=== PATIENT | male | born 1980 | race African-American/Black ===

== ENCOUNTER 2018-02-28 15:18 | Emergency (ER) | payer SELFPAY ==
--- OUTSIDE RECORDS SUMMARY | 2018-02-28 15:20 | XMS REPORT ---
:1980 Author Organization [facility] Address [address] [place] [address] Care Team Providers Name Role Phone UNKNOWN, REFFERING Primary Care Provider Unavailable KENTRELL SHEN Unavailable Unavailable Problems This patient has no known problems. Allergies, Adverse Reactions, Alerts This patient has no known allergies or adverse reactions. Medications This patient has no known medications. Encounters Start End Encounter Admission Attending Care Care Encounter Date/Time Date/Time Type Type Clinicians Facility Department ID 2017-06-29 2017-06-29 Emergency [facility] MED [id number] 15:02:00 15:02:00 2017-06-03 2017-06-03 Emergency [facility] MED [id number] 23:59:00 23:59:00 Results Test Description Test Time Test Comments Text Results Atomic Results Result Comments HEPATIC FUNCTION PANEL 2017-06-04 02:17:00 Test Item Value Reference Range Comments TOTAL PROTEIN (BEAKER) (test jvqb=333) 7.0 gm/dL 6.0-8.5 ALBUMIN (BEAKER) (test dkxp=2792) 4.0 g/dL 3.5-5.0 BILIRUBIN TOTAL (BEAKER) (test kkis=436) 0.8 mg/dL 0.1-1.2 BILIRUBIN DIRECT (BEAKER) (test mrrk=857) 0.3 mg/dL 0.0-0.4 ALKALINE PHOSPHATASE (BEAKER) (test xokx=243) 51 U/L 30-115 AST (SGOT) (BEAKER) (test qpds=901) 26 U/L 5-40 ALT (SGPT) (BEAKER) (test lqxq=674) 29 U/L 5-50 [id number] 02:17:00 Test Item Value Reference Range Comments AMYLASE (BEAKER) (test gtnj=096) 102 U/L 30-110 [id number] 02:17:00 Test Item Value Reference Range Comments LIPASE (BEAKER) (test dpnp=049) 62 U/L 40-240 BASIC METABOLIC [id number] 02:17:00 Test Item Value Reference Range Comments SODIUM (BEAKER) (test 140 meq/L 135-148 tojo=186) POTASSIUM (BEAKER) (test 3.6 meq/L 3.6-5.5 xxzb=640) CHLORIDE (BEAKER) (test 104 meq/L 98-106 rmth=058) CO2 (BEAKER) (test 28 meq/L 24-32 qixp=913) BLOOD UREA NITROGEN 6 mg/dL 10-26 (BEAKER) (test zeyj=068) CREATININE (BEAKER) (test 0.76 mg/dL 0.50-1.20 rkpj=443) GLUCOSE RANDOM (BEAKER) 107 mg/dL 70-110 (test mtzq=770) CALCIUM (BEAKER) (test 8.9 mg/dL 8.5-10.5 xnsp=570) EGFR (BEAKER) (test 141 mL/min/1.73 sq m ESTIMATED GFR IS NOT gnsi=9380) ACCURATE CREATININE CLEARANCE IN PREDICTING GLOMERULAR FILTRATION RATE. ESTIMATED GFR IS NOT APPLICABLE FOR DIALYSIS PATIENTS. CBC W/PLT COUNT & AUTO [id number] 02:10:00 Test Item Value Reference Range Comments WHITE BLOOD CELL COUNT (BEAKER) (test iabx=048) 5.7 10e3/ L 4.0-10.0 RED BLOOD CELL COUNT (BEAKER) (test cavm=364) 3.86 10e6/ L 4.20-5.80 HEMOGLOBIN (BEAKER) (test hpde=833) 13.3 g/dL 13.0-16.8 HEMATOCRIT (BEAKER) (test zhce=156) 40.2 % 40.0-50.0 MEAN CORPUSCULAR VOLUME (BEAKER) (test 104.3 fL 82.0-98.0 tahm=034) MEAN CORPUSCULAR HEMOGLOBIN (BEAKER) (test 34.5 pg 27.0-33.0 equu=087) MEAN CORPUSCULAR HEMOGLOBIN CONC (BEAKER) (test 33.0 g/dL 32.0-36.0 kmyi=275) RED CELL DISTRIBUTION WIDTH (BEAKER) (test 10.6 % 10.3-14.2 npdd=691) PLATELET COUNT (BEAKER) (test xnfx=659) 82 10e3/ L 150-430 MEAN PLATELET VOLUME (BEAKER) (test rgwn=937) 8.2 fL 6.5-10.5 NEUTROPHILS RELATIVE PERCENT (BEAKER) (test 60 % kixw=110) LYMPHOCYTES RELATIVE PERCENT (BEAKER) (test 32 % mvxv=005) MONOCYTES RELATIVE PERCENT (BEAKER) (test 6 % idjb=607) EOSINOPHILS RELATIVE PERCENT (BEAKER) (test 3 % qzdu=074) BASOPHILS RELATIVE PERCENT (BEAKER) (test 0 % uxhj=372) NEUTROPHILS ABSOLUTE COUNT (BEAKER) (test 3.39 10e3/ L 1.80-8.00 wtsa=472) LYMPHOCYTES ABSOLUTE COUNT (BEAKER) (test 1.78 10e3/ L 1.48-4.50 pkpt=855) MONOCYTES ABSOLUTE COUNT (BEAKER) (test 0.32 10e3/ L 0.00-1.30 zndl=843) EOSINOPHILS ABSOLUTE COUNT (BEAKER) (test 0.14 10e3/ L 0.00-0.50 bvpi=775) BASOPHILS ABSOLUTE COUNT (BEAKER) (test 0.02 10e3/ L 0.00-0.20 bwbu=077) CT ABDOMEN/PELVIS [id number] 22:28:[address] [id number] IMAGING REPORTPatient Name : Lee Ann PRATT of Service: [id number]: 37 Sex: M Order #: [id number] Room: [facility]: 1980 X-Ray Number: [id number] Record Number: [id number] Hospital Number: [id number] Physician: PEDRO ALIOrdering Physician: RACHID HYMAN ABDOMEN AND PELVIS WITH CONTRAST:CLINICAL HISTORY: Abdominal pain with nausea vomiting diarrhea for 4 days;history of partial colonresection for Crohn's disease; no prior studieshereTECHNIQUE: Examination is performed following intravenous administration of100 mL of Isovue-300. 4 mm axial sections were obtained with coronal andsagittal reconstructions.This CT exam was performed using one or more of the following dosereduction techniques: Automated exposure control, adjustment of the MA andor KV according to patient size or use of iterative reconstructiontechnique.FINDINGS: Lung bases are clear. There is mild scarring noted at the rightbase.The enhanced liver, spleen , pancreas, adrenals, kidneys, ureters andbladder are all normal for age.There has been apparent right hemicolectomy postoperative changes noted.There is moderatedistention of the stool filled transverse colon mostmarked proximally. There is no evidence of bowelobstruction or significantbowel wall thickening based on this study.There is a small ventral hernia demonstrated which contains fat. The defectis approximately 2 cm transversely.Impression:1. Status post right hemicolectomy with moderate distention of the stoolfilled proximal transverse colon. There is no gross obstruction at thepresent time, no inflammation or ascites.2. There is a small fat-containing ventral hernia.Electronically Signed By: Silver Cerna M.D., 05/31/2017 10:26 PMLegally authenticated by JEWESL Castillo 2017-05-31 22:26:08CHEST XR 2 [id number] 21:47:[address] [id number] IMAGING REPORTPatient Name: Lee Ann PRATT of Service: [id number]: 37 Sex: M Order #: [id number] [facility] 1979 [facility] Number: [id number] Record Number: [id number] Hospital Number: [id number] Physician: MARCIE VASQUEZOrdering Physician: URIEL HYMAN 2 VIEWS:CLINICAL HISTORY: Right rib pain; recent fall playing basketballTECHNIQUE: PA and lateralFINDINGS: The heart and pulmonary vasculature are normal, and the lungs areclear.The mediastinal structures and bony thorax are normal.IMPRESSION:Normal chest.Electronically Signed By: Silver Cerna M.D., 05/31/2017 9:44 PMLegallani authenticated by JEWELS Castillo 2017-05-31 21:44:55
--- OUTSIDE RECORDS SUMMARY | 2018-02-28 15:20 | XMS REPORT | Clinical Summary ---
:1980 Author Organization [facility] Address [address] [place] [address] Care Team Providers Name Role Phone Asked, No Pcp Primary Care Provider Unavailable Allergies Active Allergy Reactions Severity Noted Date Comments Ketorolac Rash Low 06/19/2017 Current Medications Prescription Sig. Disp. Refills Start Date End Date Status acetaminophen-codeine Take 1-2 tablets 15 tablet 0 06/19/2017 06/29/2017 (TYLENOL WITH CODEINE by mouth every 6 #3) 300-30 mg per (six) hours as tablet needed for moderate pain for up to 10 days. ondansetron (ZOFRAN) Take 1 tablet (4 15 tablet 0 06/19/2017 07/03/2017 4 MG tablet mg total) by mouth every 6 (six) hours for 14 days. Active Problems Not on file Encounters Date Type Specialty Care Team Description 09/03/2017 Emergency Emergency Medicine Tavon, Chronic abdominal pain DO Yahaira (Primary Dx) 06/23/2017 Emergency Emergency Medicine Jannie Saldana-Elise Gastroenteritis ( Primary MD Elise Dx) 06/19/2017 Emergency Emergency Medicine Sagar Emanuel Abdominal pain, unspecified MD Timothy location (Primary Dx) after 02/27/2017 Social History Tobacco Use Types Packs/Day Years Used Date Current Some Day Smoker Cigarettes 1 Smokeless Tobacco: Never Used Tobacco Cessation: Ready to Quit: No; Counseling Given: No Alcohol Use Drinks/Week oz/Week Comments Yes occationally Sex Assigned at Date Recorded Not on file Last Filed Vital Signs Vital Sign Reading Time Taken Blood Pressure 109/77 09/03/2017 3:00 AM WATER GAS OPERATOR Pulse 89 09/03/2017 2:54 AM WATER GAS OPERATOR Temperature 36.7 C (98 F) 09/03/2017 1:08 AM WATER GAS OPERATOR Respiratory Rate 18 09/03/2017 2:54 AM WATER GAS OPERATOR Oxygen Saturation 99% 09/03/2017 2:54 AM WATER GAS OPERATOR Inhaled Oxygen Concentration - - Weight - - Height 180.3 cm (5' 11") 09/03/2017 1:08 AM WATER GAS OPERATOR Body Mass Index - - Plan of Treatment Health Maintenance Due Date Last Done Comments INFLUENZA VACCINE 05/15/[address] Abdomen Pelvis W Contrast (09/03/2017 3:30 AM)Only the most recent of2 resultswithin the time period is included. Specimen Performing Laboratory [facility] [address] [place] [address] Narrative EXAMINATION:CT ABDOMEN PELVIS W CONTRAST CLINICAL HISTORY:abdominal pain TECHNIQUE: Multiple axial images of the abdomen and pelvis were obtained following intravenous administration of iodinated contrast. Sagittal and coronal computerized reformatted images were also obtained. CT imaging was performed with iterative reconstruction technique and/or automated exposure control to reduce radiation dose. COMPARISON:06/19/2017 IMPRESSION: Liver, gallbladder, spleen, pancreas, adrenal glands are normal. Kidneys, ureters and bladder are normal. No free intraperitoneal fluid or air. Fat-containing ventral hernias are seen in the midline. Patient is status post right colectomy. No gastrointestinal tract obstruction. No acute osseous abnormalities. CONCLUSION: No emergent findings. [facility]-[id number] Procedure Note Interface, Radiology Results Incoming - 09/03/2017 3:42 AM WATER GAS OPERATOR EXAMINATION: CT ABDOMEN PELVIS W CONTRAST CLINICAL HISTORY: abdominal pain TECHNIQUE: Multiple axial images of the abdomen and pelvis were obtained following intravenous administration of iodinated contrast. Sagittal and coronal computerized reformatted images were also obtained. CT imaging was performed with iterative reconstruction technique and/or automated exposure control to reduce radiation dose. COMPARISON: 06/19/2017 IMPRESSION: Liver, gallbladder, spleen, pancreas, adrenal glands are normal. Kidneys, ureters and bladder are normal. No free intraperitoneal fluid or air. Fat-containing ventral hernias are seen in the midline. Patient is status post right colectomy. No gastrointestinal tract obstruction. No acute osseous abnormalities. CONCLUSION: No emergent findings. [facility]-[id number] Urinalysis screen and microscopy, with reflex to culture (09/03/2017 2:48 AM) Only the most recent of3 resultswithin the time period is included. Component Value Ref Range Specimen site Clean catch Color, UA Straw Appearance, UA Clear Specific gravity, UA 1.017 1.001 - 1.035 pH, UA 5.0 5.0 - 8.5 Protein, UA Negative Negative Glucose, UA Negative Negative Ketones, UA Negative Negative Bilirubin, UA Negative Negative Blood, UA Small (A) Negative Nitrite, UA Negative Negative Urobilinogen, UA <2.0 <2.0 Leukocyte esterase, UA Negative Negative WBC, UA 1 0 - 1 /HPF RBC, UA 1 0 - 1 /HPF Bacteria, UA None seen None seen Yeast, UA None seen Yeast with pseudohyphae, UA None seen Specimen Performing Laboratory Urine [facility] DEPARTMENT OF PATHOLOGY AND GENOMIC MEDICINE [address] [place] [address] Urine culture (09/03/2017 2:48 AM)Only the most recent of3 resultswithin the time period is included. Component Value Ref Range Urine culture SEE COMMENTComment: Bacteriuria screen negative. Specimen Performing Laboratory [facility] DEPARTMENT OF PATHOLOGY AND [address] [address] Urine drugs of abuse screen (09/03/2017 2:47 AM) Component Value Ref Range Amphetamine screen, urine Negative Barbiturate screen, urine Negative Benzodiazepine screen, urine Negative Cannabinoid screen, urine Positive (A) Cocaine screen, urine Negative Methadone metabolite (EDDP), urine Negative Opiates screen, urine Positive (A) Oxycodone screen, urine Negative Phencyclidine screen, urine Negative Tricyclic screen, urine Negative Comment: Drug screen minimum concentration of detectability Waerowswlils7783 ng/mL Barbiturates 200 ng/mL Gfwecsxquhgvjki990 ng/mL Fintghd966 ng/mL Wbvmemosq159 ng/mL Qenyljr158 ng/mL Gvutnbanj489 ng/mL Phencyclidine 25 ng/mL Xxpqoomwsfio86 ng/mL Mfuurdkfzq5939 ng/mL Negative test results indicates presumptive evidence of lack of clinically significant drug concentration in this urine specimen. Positive test results are presumptive evidence of clinically significant drug concentration in this urine specimen. Testing performed for medical purposes only. Specimen Performing Laboratory Urine [facility] DEPARTMENT OF PATHOLOGY AND [facility] MEDICINE [address] [place] [address] Estimated GFR (09/03/2017 2:39 AM)Only the most recent of3 resultswithin the time period is included. Component Value Ref Range GFR Non Af Amer >90 mL/min/1.73 m2 GFR Af Amer >90 mL/min/1.73 m2 Comment: Chronic kidney disease: <60 mL/min/1.73m2 Kidney failure: <15 mL/min/1.73m2 The estimated GFR is calculated from the IDMS-traceable Modification of Diet in Renal Disease Equation. The accuracy of the calculation is poor when the creatinine is normal. Calculated values >90 mL/min/1.73m2 are not reported. This equation has not been validated in children (<18 years), women, the elderly (>70 years), or ethnic groups other than Caucasians and Americans. Specimen Performing Laboratory Plasma specimen [facility] DEPARTMENT OF PATHOLOGY AND GENOMIC MEDICINE [address] [place] [address] CBC with platelet and differential (09/03/2017 2:39 AM)Only the most recent of3 resultswithin the time period is included. Component Value Ref Range WBC 8.53 4.50 - 11.00 k/uL RBC 4.25 (L) 4.40 - 6.00 m/uL HGB 14.6 14.0 - 18.0 g/dL HCT 43.3 41.0 - 51.0 % MCV 101.9 (H) 82.0 - 100.0 fL MCH 34.4 (H) 27.0 - 34.0 pg MCHC 33.7 31.0 - 37.0 g/dL RDW - SD 46.2 37.0 - 55.0 fL MPV 8.7 (L) 8.8 - 13.2 fL Platelet count 192 150 - 400 k/uL Nucleated RBC 0.00 /100 WBC Neutrophils 93.7 (H) 39.0 - 69.0 % Lymphocytes 5.0 (L) 25.0 - 45.0 % Monocytes 0.6 0.0 - 10.0 % Eosinophils 0.1 0.0 - 5.0 % Basophils 0.1 0.0 - 1.0 % Immature granulocytes 0.5Comment: "Immature granulocytes" 0.0 - 1.0 % (promyelocytes, myelocytes, metamyelocytes) Specimen Performing Laboratory Blood [facility] DEPARTMENT OF PATHOLOGY AND [facility] MEDICINE [address] [place] [address] Lipase level (09/03/2017 2:39 AM)Only the most recent of3 resultswithin the time period is included. Component Value Ref Range Lipase 31 13 - 60 U/L Specimen Performing Laboratory Plasma specimen [facility] DEPARTMENT OF PATHOLOGY AND GENOMIC MEDICINE [address] [place] [address] Alcohol level, blood (09/03/2017 2:39 AM) Component Value Ref Range Alcohol None Detected mg/dL Comment: Normal None Detected Legal Intoxication in [place]80 mg/dL (0.08%) - Whole Blood Toxic Wgvjbuzuezukk706 mg/dL (0.2%) Potentially Agtwp978 - 500 mg/dL (0.35 - 0.5%) Alcohol percent None Detected % Specimen Performing Laboratory Plasma specimen [facility] DEPARTMENT OF PATHOLOGY AND [facility] MEDICINE [address] [place] [address] Comprehensive metabolic panel (09/03/2017 2:39 AM)Only the most recent of3 resultswithin the time period is included. Component Value Ref Range Sodium 137 135 - 148 mEq/L Potassium 4.2 3.5 - 5.0 mEq/L Chloride 102 98 - 112 mEq/L CO2 20 (L) 24 - 31 mEq/L Anion gap 15 7 - 15 mEq/L Comment: Starting from January , anion gap calculation no longer incorporates potassium. Please note the change. BUN 7 6 - 20 mg/dL Creatinine 0.9 0.7 - 1.2 mg/dL Glucose 121 (H) 65 - 99 mg/dL Calcium 9.1 8.3 - 10.2 mg/dL Protein 7.6 6.3 - 8.3 g/dL Comment: [place] 4.6-7.0 g/dL 1 week 4.4-7.6 g/dL 7 months-1year5.1-7.3 g/dL 1-2 years5.6-7.5 g/dL >3 years6.0-8.0 g/dL 18-150 6.3-8.3 g/dL Albumin 4.1 3.5 - 5.0 g/dL A/G ratio 1.2 0.7 - 3.8 Alkaline phosphatase 72 40 - 129 U/L AST 22 10 - 50 U/L ALT 20 5 - 50 U/L Total bilirubin 0.6 0.0 - 1.2 mg/dL Specimen Performing Laboratory Plasma specimen [facility] DEPARTMENT OF PATHOLOGY AND GENOMIC MEDICINE [address] [place] [address] Lactic acid level (06/19/2017 12:48 PM) Component Value Ref Range Lactic acid 1.5 0.5 - 2.2 mmol/L Specimen Performing Laboratory Plasma specimen [facility] DEPARTMENT OF PATHOLOGY AND GENOMIC MEDICINE [address] [place] [address] Amylase level (06/19/2017 12:48 PM) Component Value Ref Range Amylase 43 13 - 53 U/L Specimen Performing Laboratory Plasma specimen [facility] DEPARTMENT OF PATHOLOGY AND GENOMIC MEDICINE [address] [place] [address] after 02/27/2017 Insurance Payer Benefit Plan / Group Subscriber ID Type Phone Address [facility] xxxxxxxxxxxxx O [phone] [place] [phone]
--- OUTSIDE RECORDS SUMMARY | 2018-02-28 15:20 | XMS REPORT | Clinical Summary ---
:1980 Author Organization [facility] Address [address] [place] [address] Phone Care Team Providers Name Role Phone Unavailable Primary Care Provider Unavailable Allergies Active Allergy Reactions Severity Noted Date Comments Ketorolac Rash Low 06/04/2017 Current Medications Prescription Sig. Disp. Refills Start Date End Date Status dicyclomine (BENTYL) Take 1 tablet 20 tablet 0 06/04/2017 06/04/2018 Active 20 mg tablet (20 mg total) by mouth 2 (two) times daily. ibuprofen Take 1 tablet 25 tablet 0 06/04/2017 06/04/2017 Discontinued (ADVIL,MOTRIN) 600 (600 mg MG tablet total) by mouth every 6 (six) hours as needed for up to 10 days. methocarbamol Take 1 tablet 20 tablet 0 06/04/2017 06/04/2017 Discontinued (ROBAXIN) 500 MG (500 mg tablet total) by mouth 2 (two) times daily for 10 days. dicyclomine (BENTYL) Take 1 tablet 20 tablet 0 06/04/2017 06/04/2017 Discontinued 20 mg tablet (20 mg total) by mouth 2 (two) times daily. ciprofloxacin HCl Take 1 tablet 14 tablet 0 06/04/2017 06/04/2017 Discontinued (CIPRO) 500 MG (500 mg tablet total) by mouth 2 (two) times daily for 7 days. ibuprofen Take 1 tablet 25 tablet 0 06/04/2017 06/04/2017 Discontinued (ADVIL,MOTRIN) 600 (600 mg MG tablet total) by mouth every 6 (six) hours as needed for up to 10 days. methocarbamol Take 1 tablet 20 tablet 0 06/04/2017 06/04/2017 Discontinued (ROBAXIN) 500 MG (500 mg tablet total) by mouth 2 (two) times daily for 10 days. ciprofloxacin HCl Take 1 tablet 14 tablet 0 06/04/2017 06/04/2017 Discontinued (CIPRO) 500 MG (500 mg tablet total) by mouth 2 (two) times daily for 7 days. dicyclomine (BENTYL) Take 1 tablet 20 tablet 0 06/04/2017 06/04/2017 Discontinued 20 mg tablet (20 mg total) by mouth 2 (two) times daily. ibuprofen Take 1 tablet 25 tablet 0 06/04/2017 06/14/2017 (ADVIL,MOTRIN) 600 (600 mg MG tablet total) by mouth every 6 (six) hours as needed for up to 10 days. methocarbamol Take 1 tablet 20 tablet 0 06/04/2017 06/14/2017 (ROBAXIN) 500 MG (500 mg tablet total) by mouth 2 (two) times daily for 10 days. ciprofloxacin HCl Take 1 tablet 14 tablet 0 06/04/2017 06/11/2017 (CIPRO) 500 MG (500 mg tablet total) by mouth 2 (two) times daily for 7 days. Active Problems Not on file Encounters Date Type Specialty Care Team Description 06/04/2017 Emergency Emergency Medicine Sherry Chaidez MD Chest wall contusion, right, initial encounter (Primary Dx);Gastroenteritis after 02/27/2017 Social History Tobacco Use Types Packs/Day Years Used Date Current Every Day Smoker Cigarettes Smokeless Tobacco: Current User Alcohol Use Drinks/Week oz/Week Comments Yes Sex Assigned at Date Recorded Not on file Last Filed Vital Signs Vital Sign Reading Time Taken Blood Pressure 151/82 06/04/2017 2:42 AM CDT Pulse 89 06/04/2017 2:42 AM CDT Temperature 36.6 C (97.8 F) 06/04/2017 1:35 AM CDT Respiratory Rate 18 06/04/2017 2:42 AM CDT Oxygen Saturation 97% 06/04/2017 2:42 AM CDT Inhaled Oxygen Concentration - - Weight 93 kg (205 lb) 06/04/2017 1:40 AM CDT Height 175.3 cm (5' 9") 06/04/2017 1:40 AM CDT Body Mass Index 30.27 06/04/2017 1:40 AM CDT Plan of Treatment Not on file Results CBC with platelet count + automated diff (06/04/2017 2:01 AM) Component Value Ref Range WBC 5.7 4.0 - 10.0 10e3/L RBC 3.86 (L) 4.20 - 5.80 10e6/L Hemoglobin 13.3 13.0 - 16.8 g/dL Hematocrit 40.2 40.0 - 50.0 % MCV 104.3 (H) 82.0 - 98.0 fL MCH 34.5 (H) 27.0 - 33.0 pg MCHC 33.0 32.0 - 36.0 g/dL RDW 10.6 10.3 - 14.2 % Platelets 82 (L) 150 - 430 10e3/L MPV 8.2 6.5 - 10.5 fL % Neutros 60 % % Lymphs 32 % % Monos 6 % % Eos 3 % % Baso 0 % # Neutros 3.39 1.80 - 8.00 10e3/L # Lymphs 1.78 1.48 - 4.50 10e3/L # Monos 0.32 0.00 - 1.30 10e3/L # Eos 0.14 0.00 - 0.50 10e3/L # Baso 0.02 0.00 - 0.20 10e3/L Specimen Performing Laboratory Blood - Arm, [facility] [place], [facility] [address] [place] [address] CBC with platelet count + automated diff (06/04/2017 2:01 AM) Specimen Performing Laboratory Blood Narrative The following orders were created for panel order CBC with platelet count + automated diff. Procedure Abnormality Status --------- ------ CBC with platelet count ...[[id number]]AbnormalFinal result Please view results for these tests on the individual orders. Lipase (06/04/2017 2:01 AM) Component Value Ref Range Lipase 62 40 - 240 U/L Specimen Performing Laboratory Blood - Arm, [facility], [facility], [facility] [address] [place] [address] Amylase (06/04/2017 2:01 AM) Component Value Ref Range Amylase 102 30 - 110 U/L Specimen Performing Laboratory Blood - Arm, [facility], [facility] [place], [facility] [address] [place] [address] Liver Panel (06/04/2017 2:01 AM) Component Value Ref Range Protein, Total 7.0 6.0 - 8.5 gm/dL Albumin 4.0 3.5 - 5.0 g/dL Total Bilirubin 0.8 0.1 - 1.2 mg/dL Bilirubin, Direct 0.3 0.0 - 0.4 mg/dL Alkaline Phosphatase 51 30 - 115 U/L AST 26 5 - 40 U/L ALT 29 5 - 50 U/L Specimen Performing Laboratory Blood - Arm, [facility], [facility] [place], [facility] [address] [place] [address] Basic metabolic panel (Na, K+, Cl, CO2, Glu, Ca, BUN, Cr) (06/04/2017 2:01 AM) Component Value Ref Range Sodium 140 135 - 148 meq/L Potassium 3.6 3.6 - 5.5 meq/L Chloride 104 98 - 106 meq/L CO2 28 24 - 32 meq/L BUN 6 (L) 10 - 26 mg/dL Creatinine 0.76 0.50 - 1.20 mg/dL Glucose 107 70 - 110 mg/dL Calcium 8.9 8.5 - 10.5 mg/dL EGFR 141Comment: ESTIMATED GFR IS NOT ACCURATE mL/min/1.73 sq m CREATININE CLEARANCE IN PREDICTING GLOMERULAR FILTRATION RATE. ESTIMATED GFR IS NOT APPLICABLE FOR DIALYSIS PATIENTS. Specimen Performing Laboratory Blood - Arm, [facility], [facility] [place] [address] [place] [address] XR chest 2 views (06/04/2017 1:50 AM) Specimen Performing Laboratory GE RIS Narrative FINAL REPORT EXAM: 2 VIEW CHEST CLINICAL INDICATION: CHEST PAIN IMPRESSION: No evidence of focal lung consolidation, pulmonary edema or pleural effusion. The heart size is normal. Mediastinal contours are sharp. No evidence of an acute osseous abnormality or pneumothorax. Signed: Amilcar Murillo MD Report Verified Date/Time:06/04/2017 01:58:57 Reading Location: [address] Reading Room Procedure Note Interface, External Ris In - 06/04/2017 2:01 AM CDT FINAL REPORT EXAM: 2 VIEW CHEST CLINICAL INDICATION: CHEST PAIN IMPRESSION: No evidence of focal lung consolidation, pulmonary edema or pleural effusion. The heart size is normal. Mediastinal contours are sharp. No evidence of an acute osseous abnormality or pneumothorax. Signed: Amilcar Murillo MD Report Verified Date/Time: 06/04/2017 01:58:57 Reading Location: [address] Reading Room after 02/27/2017
[2018-02-28 16:14] LABS: Absolute Lymphocytes (CBC) 1.1 K/uL (0.7-4.9); Absolute Monocytes 0.5 K/uL (0.1-1.3); Basophils % 0.5 % (0-1.3); Eosinophils % 1.3 % (0-4.4); Hematocrit 43.8 % (39.6-49.0); Lymphocytes % 16.7 % (15.3-44.8); MCH 33.5 pg (27.0-35.0); MCV 101.7 fL (80-100); Monocytes % 6.8 % (3.3-12.3); RBC Red Blood Cell Count 4.31 M/uL (4.33-5.43)
[2018-02-28] MEDS ORDERED: MEPERIDINE HCL 50 MG/ML AMP ONE ×2 (16:15→16:57)
[2018-02-28] MEDS ORDERED: ONDANSETRON 4 MG/2 ML VIAL ONE (16:16)
[2018-02-28] MEDS ORDERED: NA CHLORIDE 0.9% 1,000 ML ONE (16:16)
[2018-02-28 16:27] LABS: Bicarbonate 25 mEq/L (21-31); Glucose Level 114 mg/dL (65-120); Lipase 55 U/L (22-51); Potassium 3.2 mEq/L (3.6-5.0); Sodium Level 134 mEq/L (135-145)
[2018-02-28 16:33] LABS: ALT/SGPT 23 IU/L (10-60); AST/SGOT 20 IU/L (10-42); Albumin 4.3 g/dL (3.2-5.5); Alkaline Phosphatase 61 IU/L (42-121); BUN Blood Urea Nitrogen 8 mg/dL (6-20); Bilirubin Direct 0.1 mg/dL (0-0.2); Bilirubin Total 0.8 mg/dL (0.3-1.2); Protein, Total 7.5 g/dL (6.0-8.3)
[2018-02-28] MEDS ORDERED: METHYLPREDNISOLONE 125 MG INJ ONE (16:57)
[2018-02-28 18:11] LABS: Urine Glucose NEGATIVE (NEG)
[2018-02-28 18:12] LABS: Urine Blood NEGATIVE (NEG); Urine Protein NEGATIVE (NEG); Urine pH 5.5 (5.0-7.0)
--- NOTE | 2018-02-28 18:23 | ER ---
Nurse's Notes [facility] Name: Johan Moreno Age: 38 yrs Sex: Male : 1980 Arrival Date: 02/28/2018 Time: 15:20 Bed 16 Private MD: Diagnosis: Crohn's disease [regional enteritis] Presentation: 02/28 15:32 Presenting complaint: Patient states: Generalized abdominal pain and N/V/D for 2 days. aj Transition of care: patient was not received from another setting of care. Onset of symptoms was February 26, 2018. Care prior to arrival: None. 15:32 Method Of Arrival: Ambulatory 15:32 Acuity: KJ 3 aj 15:48 Initial Sepsis Screen: Does the patient meet any 2 criteria? No. Patient's initial hj sepsis screen is negative. Does the patient have a suspected source of infection? No. Patient's initial sepsis screen is negative. Triage Assessment: 15:33 General: Appears in no apparent distress. uncomfortable, Behavior is calm, cooperative, aj appropriate for age. Pain: Complains of pain in abdomen Pain currently is 7 out of 10 on a pain scale. Neuro: Level of Consciousness is awake, alert, obeys commands, Oriented to person, place, time, situation, Appropriate for age. Respiratory: Airway is patent Respiratory effort is even, unlabored, Respiratory pattern is regular, symmetrical. GI: Reports lower abdominal pain, upper abdominal pain, diarrhea, nausea, vomiting. Derm: Skin is intact, is healthy with good turgor, Skin is normal, black. Historical: - Allergies: 15:33 Toradol; aj - Home Meds: 15:33 None [Active]; aj - PMHx: 15:33 Crohn's; aj - PSHx: 15:33 Carpal Tunnel Repair; Bowel resection; aj - Immunization history:: Adult Immunizations up to date. - Social history:: Smoking status: Patient uses tobacco products, smokes one-half pack cigarettes per day. - Family history:: not pertinent. - Hospitalizations: : No recent hospitalization is reported. Screenin:47 Abuse screen: Denies threats or abuse. Denies injuries from another. Nutritional hj screening: No deficits noted. Tuberculosis screening: No symptoms or risk factors identified. Fall Risk None identified. Assessment: 15:48 GI: Bowel sounds present X 4 quads. Abd is soft Abdomen is tender to palpation. hj 15:48 General: Appears in no apparent distress. uncomfortable, Behavior is calm, cooperative, hj appropriate for age. Pain: Complains of pain in abdomen. Neuro: Level of Consciousness is awake, alert, obeys commands, Oriented to person, place, time, situation, Appropriate for age. Cardiovascular: Capillary refill < 3 seconds Patient's skin is warm and dry. Respiratory: Airway is patent Respiratory effort is even, unlabored, Respiratory pattern is regular, symmetrical. : No signs and/or symptoms were reported regarding the genitourinary system. EENT: No signs and/or symptoms were reported regarding the EENT system. Derm: No signs and/or symptoms reported regarding the dermatologic system. Musculoskeletal: No signs and/or symptoms reported regarding the musculoskeletal system. Vital Signs: 15:33 BP 137 / 79; Pulse 100; Resp 20; Temp 97.8; Pulse Ox 97% on R/A; Weight 99.79 kg; aj Height 5 ft. 9 in. (175.26 cm); Pain 7/10; 16:30 BP 142 / 80; Pulse 94; Resp 18; Pulse Ox 100% on R/A; hj 17:33 BP 139 / 87; Pulse 95; Resp 18; Pulse Ox 100% on R/A; hj 18:37 BP 138 / 85; Pulse 94; Resp 18; Pulse Ox 98% on R/A; hj 15:33 Body Mass Index 32.49 (99.79 kg, 175.26 cm) aj ED Course: 15:20 Patient arrived in ED. mr 15:33 Triage completed. aj 15:33 Arm band placed on left wrist. Patient placed in waiting room, Patient notified of wait aj time. 15:47 Thom Barba, RN is Primary Nurse. hj 15:48 Patient has correct armband on for positive identification. Placed in gown. Bed in low hj position. Call light in reach. Side rails up X 1. 15:54 Rm Silveira MD is Attending Physician. rn 16:05 Initial lab(s) drawn, by me, sent to lab. Inserted saline lock: 20 gauge in left hj antecubital area, using aseptic technique. Blood collected. 18:36 No provider procedures requiring assistance completed. IV discontinued, intact, hj bleeding controlled, No redness/swelling at site. Pressure dressing applied. Administered Medications: 15:58 Drug: NS 0.9% 1000 ml Route: IV; Rate: 1000 ml; Site: left antecubital; hj 16:20 Follow up: IV Status: Completed infusion hj 15:58 Drug: Zofran 4 mg Route: IVP; Site: left antecubital; hj 16:20 Follow up: Response: No adverse reaction hj 15:58 Drug: Demerol 50 mg Route: IVP; Site: left antecubital; hj 16:19 Follow up: Response: No adverse reaction; Pain is decreased hj 16:52 Drug: SOLU-Medrol 125 mg Route: IVP; Site: left antecubital; hj 17:18 Follow up: Response: No adverse reaction hj 16:52 Drug: Demerol 50 mg Route: IVP; Site: left antecubital; hj 17:17 Follow up: Response: No adverse reaction; Pain is decreased hj Outcome: 18:22 Discharge ordered by . rn 18:36 Discharged to home ambulatory. hj 18:36 Condition: stable 18:36 Discharge instructions given to patient, Instructed on discharge instructions, follow up and referral plans. medication usage, Demonstrated understanding of instructions, follow-up care, medications, Prescriptions given X 3. 18:43 Patient left the ED. Signatures: Afshan Sawant RN RN aj Rivera, Maria mr Nieto, Roman, MD MD rn Joaquin, Henry, RN RN
--- NOTE | 2018-02-28 18:23 | EDPHYS ---
Physician Documentation [facility] Name: Johan Moreno Age: 38 yrs Sex: Male : 1980 Arrival Date: 02/28/2018 Time: 15:20 Bed 16 Private MD: ED Physician Rm Silveira HPI: 02/28 15:59 This 38 yrs old Black Male presents to ER via Ambulatory with complaints of Abdominal rn Pain, Nausea/Vomiting/Diarrhea. 15:59 The patient presents to the emergency department with nausea, vomiting, diarrhea, rn abdominal pain. Onset: The symptoms/episode began/occurred 2 day(s) ago. Possible causes: flare up of bowel problem, Crohn's disease. Severity of symptoms: At their worst the symptoms were moderate in the emergency department the symptoms are unchanged. The patient has experienced similar episodes in the past. The patient has not recently seen a physician. Historical: - Allergies: 15:33 Toradol; aj - Home Meds: 15:33 None [Active]; aj - PMHx: 15:33 Crohn's; aj - PSHx: 15:33 Carpal Tunnel Repair; Bowel resection; aj - Immunization history:: Adult Immunizations up to date. - Social history:: Smoking status: Patient uses tobacco products, smokes one-half pack cigarettes per day. - Family history:: not pertinent. - Hospitalizations: : No recent hospitalization is reported. ROS: 15:59 Constitutional: Negative for fever, chills, and weight loss, Eyes: Negative for injury, rn pain, redness, and discharge, Cardiovascular: Negative for chest pain, palpitations, and edema, Respiratory: Negative for shortness of breath, cough, wheezing, and pleuritic chest pain, Abdomen/GI: Negative for constipation, MS/Extremity: Negative for injury and deformity, Skin: Negative for injury, rash, and discoloration, Neuro: Negative for headache, weakness, numbness, tingling, and seizure. Exam: 15:59 Constitutional: This is a well developed, well nourished patient who is awake, alert, rn appears uncomfortable Head/Face: Normocephalic, atraumatic. Eyes: Pupils equal round and reactive to light, extra-ocular motions intact. Lids and lashes normal. Conjunctiva and sclera are non-icteric and not injected. Cornea within normal limits. Periorbital areas with no swelling, redness, or edema. ENT: dry MM Cardiovascular: tachycardic, regular, no murmur Respiratory: Lungs have equal breath sounds bilaterally, clear to auscultation and percussion. No rales, rhonchi or wheezes noted. No increased work of breathing, no retractions or nasal flaring. Abdomen/GI: soft, RLQ and LLQ tenderness, no rebound, no masses MS/ Extremity: Pulses equal, no cyanosis. Neurovascular intact. Full, normal range of motion. Equal circumference. Neuro: Awake and alert, GCS 15, oriented to person, place, time, and situation. Cranial nerves II-XII grossly intact. Motor strength 5/5 in all extremities. Sensory grossly intact. Vital Signs: 15:33 BP 137 / 79; Pulse 100; Resp 20; Temp 97.8; Pulse Ox 97% on R/A; Weight 99.79 kg; aj Height 5 ft. 9 in. (175.26 cm); Pain 7/10; 16:30 BP 142 / 80; Pulse 94; Resp 18; Pulse Ox 100% on R/A; hj 17:33 BP 139 / 87; Pulse 95; Resp 18; Pulse Ox 100% on R/A; hj 18:37 BP 138 / 85; Pulse 94; Resp 18; Pulse Ox 98% on R/A; hj 15:33 Body Mass Index 32.49 (99.79 kg, 175.26 cm) aj MDM: 15:54 Patient medically screened. rn 18:20 Differential diagnosis: Nonspecific abd pain, viral gastroenteritis, gastroenteritis, rn crohn's flare. Data reviewed: vital signs, nurses notes, lab test result(s), and as a result, I will discharge patient. Counseling: I had a detailed discussion with the patient and/or guardian regarding: the historical points, exam findings, and any diagnostic results supporting the discharge/admit diagnosis, lab results, the need for outpatient follow up, to return to the emergency department if symptoms worsen or persist or if there are any questions or concerns that arise at home. Response to treatment: the patient's symptoms have markedly improved after treatment, and as a result, I will discharge patient. Special discussion: Based on the patient's Hx, exam, and Dx evaluation, there is no indication for emergent surgery or inpatient Tx. It is understood by the patient/guardian that if the Sx's persist or worsen they need to return immediately for re-evaluation. I discussed with the patient/guardian in detail that at this point there is no indication for admission to the hospital. It is understood, however, that if the symptoms persist or worsen the patient needs to return immediately for re-evaluation. Based on the history and exam findings, there is no indication for further emergent testing or inpatient evaluation. I discussed with the patient/guardian the need to see the sales service manager for further evaluation of the symptoms. ED course: Labs ok, normal WBC, improved, no longer nauseous, feels like crohn's flare for patient, normal vitals, will dc home with steroids, pain meds, and nausea meds. Return precautions given and understood.. 02/28 15:58 Order name: Basic Metabolic Panel rn 02/28 15:58 Order name: CBC with Diff; Complete Time: 16:36 rn 02/28 15:58 Order name: Hepatic Function; Complete Time: 16:36 rn 02/28 15:58 Order name: Lipase; Complete Time: 16:36 rn 02/28 15:58 Order name: Basic Metabolic Panel; Complete Time: 16:36 EDCA 02/28 17:00 Order name: Urine Dipstick--Ancillary (enter results) bd 02/28 15:58 Order name: IV Saline Lock; Complete Time: 16:04 rn 02/28 15:58 Order name: Labs collected and sent; Complete Time: 16:04 rn Administered Medications: 15:58 Drug: NS 0.9% 1000 ml Route: IV; Rate: 1000 ml; Site: left antecubital; hj 16:20 Follow up: IV Status: Completed infusion hj 15:58 Drug: Zofran 4 mg Route: IVP; Site: left antecubital; hj 16:20 Follow up: Response: No adverse reaction hj 15:58 Drug: Demerol 50 mg Route: IVP; Site: left antecubital; hj 16:19 Follow up: Response: No adverse reaction; Pain is decreased hj 16:52 Drug: SOLU-Medrol 125 mg Route: IVP; Site: left antecubital; hj 17:18 Follow up: Response: No adverse reaction hj 16:52 Drug: Demerol 50 mg Route: IVP; Site: left antecubital; hj 17:17 Follow up: Response: No adverse reaction; Pain is decreased hj Disposition: 02/28/18 18:22 Discharged to Home. Impression: Crohn's disease [regional enteritis]. - Condition is Stable. - Discharge Instructions: Crohn Disease. - Prescriptions for Zofran ODT 4 mg Oral tablet,disintegrating - place 1 tablet by TRANSLINGUAL route every 8-10 hours As needed; 20 tablet. Tylenol- Codeine #3 300-30 mg Oral Tablet - take 1 tablet by ORAL route every 6 hours As needed; 20 tablet. Medrol (Bal) 4 mg Oral Tablets, Dose Pack - take 1 tablet by ORAL route as directed - follow package instructions; 1 packet. - Medication Reconciliation Form, Thank You Letter, Antibiotic Education, Prescription Opioid Use form. - Follow up: Private Physician; When: As needed; Reason: Recheck today's complaints, Re-evaluation by your physician. - Problem is new. - Symptoms have improved. Signatures: Dispatcher [employer] Afshan De La Torre RN RN aj Nieto, Roman, MD MD rn Joaquin, Henry, RN RN hj Corrections: (The following items were deleted from the chart) 18:43 18:22 02/28/2018 18:22 Discharged to Home. Impression: Crohn's disease [regional hj enteritis]. Condition is Stable. Forms are Medication Reconciliation Form, Thank You Letter, Antibiotic Education, Prescription Opioid Use. Follow up: Private Physician; When: As needed; Reason: Recheck today's complaints, Re-evaluation by your physician. Problem is new. Symptoms have improved. rn
== END 2018-02-28 18:43 | disposition home or self-care (01) ==
LOC: ER 15:18
DX: K50.90 Crohn's disease, unspecified, without complications (principal); F17.210 Nicotine dependence, cigarettes, uncomplicated; Z88.6 Allergy status to analgesic agent
CPT/HCPCS: 36415; 80048; 80076; 81003; 83690; 85025; 96374; 96375; 99284; J2175; J2405; J2930; J7030

== ENCOUNTER 2018-03-27 05:08 | Emergency (ER) | payer SELFPAY ==
--- OUTSIDE RECORDS SUMMARY | 2018-03-27 05:10 | XMS REPORT | Clinical Summary ---
:1980 Author Organization [facility] Address [address] [place] [address] Care Team Providers Name Role Phone Asked, [...] unspecified MD Timothy location (Primary Dx) after 03/26/2017 Social History Tobacco Use Types Packs/Day Years Used Date Current Some Day Smoker Cigarettes 1 Smokeless Tobacco: Never Used Tobacco Cessation: Ready to Quit: No; Counseling Given: No Alcohol Use Drinks/Week oz/Week Comments Yes occationally Sex Assigned at Date Recorded Not on file Last Filed Vital Signs Vital Sign Reading Time Taken Blood Pressure 109/77 09/03/2017 3:00 AM DIRECTOR TECHNICAL Pulse 89 09/03/2017 2:54 AM DIRECTOR TECHNICAL Temperature 36.7 C (98 F) 09/03/2017 1:08 AM DIRECTOR TECHNICAL Respiratory Rate 18 09/03/2017 2:54 AM DIRECTOR TECHNICAL Oxygen Saturation 99% 09/03/2017 2:54 AM DIRECTOR TECHNICAL Inhaled Oxygen Concentration - - Weight - - Height 180.3 cm (5' 11") 09/03/2017 1:08 AM DIRECTOR TECHNICAL Body Mass Index - - Plan of Treatment Health Maintenance Due Date Last Done Comments INFLUENZA VACCINE 05/15/[address] Abdomen Pelvis W Contrast (09/03/2017 3:30 AM)Only the most recent of2 resultswithin the time period is included. Specimen Performing Laboratory [facility] [address] [place] [address] Narrative EXAMINATION:CT ABDOMEN PELVIS W CONTRAST CLINICAL [...] acute osseous abnormalities. CONCLUSION: No emergent findings. [facility]-[id number] Procedure Note Interface, Radiology Results Incoming - 09/03/2017 3:42 AM DIRECTOR TECHNICAL EXAMINATION: CT ABDOMEN PELVIS W CONTRAST CLINICAL [...] acute osseous abnormalities. CONCLUSION: No emergent findings. [facility]-[id number] Urinalysis screen and microscopy, with reflex to [...] UA None seen Specimen Performing Laboratory Urine [facility] DEPARTMENT OF PATHOLOGY AND GENOMIC MEDICINE [address] [place] [address] Urine culture (09/03/2017 2:48 AM)Only the most recent of3 resultswithin the time period is included. Component Value Ref Range Urine culture SEE COMMENTComment: Bacteriuria screen negative. Specimen Performing Laboratory [facility] DEPARTMENT OF PATHOLOGY AND [address] [address] Urine drugs of abuse screen (09/03/2017 2:47 AM) Component Value Ref Range Amphetamine screen, urine Negative Barbiturate screen, urine Negative Benzodiazepine screen, urine Negative Cannabinoid screen, urine Positive (A) Cocaine screen, urine Negative Methadone metabolite (EDDP), urine Negative Opiates screen, urine Positive (A) Oxycodone screen, urine Negative Phencyclidine screen, urine Negative Tricyclic screen, urine Negative Comment: Drug screen minimum concentration of detectability Ykbqxnxruznf4951 ng/mL Barbiturates 200 ng/mL Ngkxsuurbvjveet333 ng/mL Rlzpuiw554 ng/mL Staubaonv470 ng/mL Gvjsxtr818 ng/mL Urgrtlzcj145 ng/mL Phencyclidine 25 ng/mL Tzmktudjhsgz88 ng/mL Rqsfatqehb8182 ng/mL Negative test results indicates presumptive evidence of lack of clinically significant drug concentration in this urine specimen. Positive test results are presumptive evidence of clinically significant drug concentration in this urine specimen. Testing performed for medical purposes only. Specimen Performing Laboratory Urine [facility] DEPARTMENT OF PATHOLOGY AND [facility] MEDICINE [address] [place] [address] Estimated GFR (09/03/2017 2:39 AM)Only the most [...] and Americans. Specimen Performing Laboratory Plasma specimen [facility] DEPARTMENT OF PATHOLOGY AND GENOMIC MEDICINE [address] [place] [address] CBC with platelet and differential (09/03/2017 2:39 [...] (promyelocytes, myelocytes, metamyelocytes) Specimen Performing Laboratory Blood [facility] DEPARTMENT OF PATHOLOGY AND [facility]IC[facility] [address] [place] [address] Lipase level (09/03/2017 2:39 AM)Only the most recent of3 resultswithin the time period is included. Component Value Ref Range Lipase 31 13 - 60 U/L Specimen Performing Laboratory Plasma specimen [facility] DEPARTMENT OF PATHOLOGY AND GENOMIC MEDICINE [address] [place] [address] Alcohol level, blood (09/03/2017 2:39 AM) Component Value Ref Range Alcohol None Detected mg/dL Comment: Normal None Detected Legal Intoxication in [place]80 mg/dL (0.08%) - Whole Blood Toxic Vodhsoqtmsgoj922 mg/dL (0.2%) Potentially Xpfuf489 - 500 mg/dL (0.35 - 0.5%) Alcohol percent None Detected % Specimen Performing Laboratory Plasma specimen [facility] DEPARTMENT OF PATHOLOGY AND [facility] [address] [place] [address] Comprehensive metabolic panel (09/03/2017 2:39 AM)Only the [...] Protein 7.6 6.3 - 8.3 g/dL Comment: [place] 4.6-7.0 g/dL 1 week 4.4-7.6 g/dL 7 months-1year5.1-7.3 g/dL 1-2 years5.6-7.5 g/dL >3 years6.0-8.0 g/dL 18-150 6.3-8.3 g/dL Albumin 4.1 3.5 - 5.0 g/dL A/G ratio 1.2 0.7 - 3.8 Alkaline phosphatase 72 40 - 129 U/L AST 22 10 - 50 U/L ALT 20 5 - 50 U/L Total bilirubin 0.6 0.0 - 1.2 mg/dL Specimen Performing Laboratory Plasma specimen [facility] DEPARTMENT OF PATHOLOGY AND GENOMIC MEDICINE [address] [place] [address] Lactic acid level (06/19/2017 12:48 PM) Component Value Ref Range Lactic acid 1.5 0.5 - 2.2 mmol/L Specimen Performing Laboratory Plasma specimen [facility] DEPARTMENT OF PATHOLOGY AND GENOMIC MEDICINE [address] [place] [address] Amylase level (06/19/2017 12:48 PM) Component Value Ref Range Amylase 43 13 - 53 U/L Specimen Performing Laboratory Plasma specimen [facility] DEPARTMENT OF PATHOLOGY AND GENOMIC MEDICINE [address] [place] [address] after 03/26/2017 Insurance Payer Benefit Plan / Group Subscriber ID Type Phone Address [facility] xxxxxxxxxxxxx O Home: [address] [phone] [place] [phone]
--- OUTSIDE RECORDS SUMMARY | 2018-03-27 05:10 | XMS REPORT ---
:1980 Author Organization [facility] Address [address] [place] [address] Care Team Providers Name Role Phone UNKNOWN, [...] Facility Department ID 2017-06-29 2017-06-29 Emergency [facility] [id number] 15:02:00 15:02:00 2017-06-03 2017-06-03 Emergency [facility] [id number] 23:59:00 23:59:00 Results Test Description Test Time Test Comments Text Results Atomic Results Result Comments HEPATIC FUNCTION PANEL 2017-06-04 02:17:00 Test Item Value Reference Range Comments TOTAL PROTEIN (BEAKER) (test olno=329) 7.0 gm/dL 6.0-8.5 ALBUMIN (BEAKER) (test ptsg=4177) 4.0 g/dL 3.5-5.0 BILIRUBIN TOTAL (BEAKER) (test duim=709) 0.8 mg/dL 0.1-1.2 BILIRUBIN DIRECT (BEAKER) (test rmku=079) 0.3 mg/dL 0.0-0.4 ALKALINE PHOSPHATASE (BEAKER) (test psvh=249) 51 U/L 30-115 AST (SGOT) (BEAKER) (test ofzs=486) 26 U/L 5-40 ALT (SGPT) (BEAKER) (test cmmf=762) 29 U/L 5-50 [id number] 02:17:00 Test Item Value Reference Range Comments AMYLASE (BEAKER) (test xtbl=948) 102 U/L 30-110 [id number] 02:17:00 Test Item Value Reference Range Comments LIPASE (BEAKER) (test xjwb=496) 62 U/L 40-240 BASIC METABOLIC [id number] 02:17:00 Test Item Value Reference Range Comments SODIUM (BEAKER) (test 140 meq/L 135-148 bvnz=449) POTASSIUM (BEAKER) (test 3.6 meq/L 3.6-5.5 mqjq=053) CHLORIDE (BEAKER) (test 104 meq/L 98-106 heuy=670) CO2 (BEAKER) (test 28 meq/L 24-32 prie=244) BLOOD UREA NITROGEN 6 mg/dL 10-26 (BEAKER) (test mzoa=527) CREATININE (BEAKER) (test 0.76 mg/dL 0.50-1.20 sggz=197) GLUCOSE RANDOM (BEAKER) 107 mg/dL 70-110 (test qvfu=070) CALCIUM (BEAKER) (test 8.9 mg/dL 8.5-10.5 ppfm=517) EGFR (BEAKER) (test 141 mL/min/1.73 sq m ESTIMATED GFR IS NOT cyzo=8090) ACCURATE CREATININE CLEARANCE IN PREDICTING GLOMERULAR FILTRATION RATE. ESTIMATED GFR IS NOT APPLICABLE FOR DIALYSIS PATIENTS. CBC W/PLT COUNT & AUTO [id number] 02:10:00 Test Item Value Reference Range Comments WHITE BLOOD CELL COUNT (BEAKER) (test fodm=564) 5.7 10e3/ L 4.0-10.0 RED BLOOD CELL COUNT (BEAKER) (test qqta=787) 3.86 10e6/ L 4.20-5.80 HEMOGLOBIN (BEAKER) (test vkbu=370) 13.3 g/dL 13.0-16.8 HEMATOCRIT (BEAKER) (test fana=639) 40.2 % 40.0-50.0 MEAN CORPUSCULAR VOLUME (BEAKER) (test 104.3 fL 82.0-98.0 dton=683) MEAN CORPUSCULAR HEMOGLOBIN (BEAKER) (test 34.5 pg 27.0-33.0 hzbx=803) MEAN CORPUSCULAR HEMOGLOBIN CONC (BEAKER) (test 33.0 g/dL 32.0-36.0 wovf=913) RED CELL DISTRIBUTION WIDTH (BEAKER) (test 10.6 % 10.3-14.2 weya=789) PLATELET COUNT (BEAKER) (test fuib=368) 82 10e3/ L 150-430 MEAN PLATELET VOLUME (BEAKER) (test lose=401) 8.2 fL 6.5-10.5 NEUTROPHILS RELATIVE PERCENT (BEAKER) (test 60 % jvho=575) LYMPHOCYTES RELATIVE PERCENT (BEAKER) (test 32 % goya=902) MONOCYTES RELATIVE PERCENT (BEAKER) (test 6 % mhgc=741) EOSINOPHILS RELATIVE PERCENT (BEAKER) (test 3 % tbin=109) BASOPHILS RELATIVE PERCENT (BEAKER) (test 0 % youj=074) NEUTROPHILS ABSOLUTE COUNT (BEAKER) (test 3.39 10e3/ L 1.80-8.00 timh=379) LYMPHOCYTES ABSOLUTE COUNT (BEAKER) (test 1.78 10e3/ L 1.48-4.50 gxsl=049) MONOCYTES ABSOLUTE COUNT (BEAKER) (test 0.32 10e3/ L 0.00-1.30 mtxp=850) EOSINOPHILS ABSOLUTE COUNT (BEAKER) (test 0.14 10e3/ L 0.00-0.50 ovgf=525) BASOPHILS ABSOLUTE COUNT (BEAKER) (test 0.02 10e3/ L 0.00-0.20 pnyr=948) CT ABDOMEN/PELVIS [id number] 22:28:[address] [id number] IMAGING REPORTPatient Name : Lee Ann PRATT of Service: [id number]: 37 Sex: M Order #: [id number] Room: [facility]: 1980 X-Ray Number: [id number] Record Number: [id number] Hospital Number: [id number] Physician: PEDRO ALIOrdering Physician: RACHID HYMAN ABDOMEN [...] Cerna M.D., 05/31/2017 10:26 PMLegally authenticated by JEWELS Castillo 2017-05-31 22:26:08CHEST XR 2 [id number] 21:47:[address] [id number] IMAGING REPORTPatient Name: Lee Ann PRATT of Service: [id number]: 37 Sex: M Order #: [id number] [facility] 1979 [facility] Number: [id number] Record Number: [id number] Hospital Number: [id number] Physician: MARCIE VASQUEZOrdering Physician: URIEL HYMAN 2 VIEWS:CLINICAL HISTORY: Right rib pain; recent fall playing basketballTECHNIQUE: PA and lateralFINDINGS: The heart and pulmonary vasculature are normal, and the lungs areclear.The mediastinal structures and bony thorax are normal.IMPRESSION:Normal chest.Electronically Signed By: Silver Cerna M.D., 05/31/2017 9:44 PMLegallani authenticated by JEWELS Castillo 2017-05-31 21:44:55
--- OUTSIDE RECORDS SUMMARY | 2018-03-27 05:10 | XMS REPORT | Clinical Summary ---
:1980 Author Organization [facility] Address [address] [place] [address] Phone Care Team Providers Name Role Phone [...] contusion, right, initial encounter (Primary Dx);Gastroenteritis after 03/26/2017 Social History Tobacco Use Types [...] 10e3/L Specimen Performing Laboratory Blood - Arm, [facility]GENCY [place], [facility] [address] [place] [id number] CBC with platelet count + automated diff (06/04/2017 2:01 AM) Specimen Performing Laboratory Blood Narrative The following orders were created for panel order CBC with platelet count + automated diff. Procedure Abnormality Status --------- ------ CBC with platelet count ...[[id number]]AbnormalFinal result Please view results for these tests on the individual orders. Lipase (06/04/2017 2:01 AM) Component Value Ref Range Lipase 62 40 - 240 U/L Specimen Performing Laboratory Blood - Arm, [facility], [facility] [address] [place] [id number] Amylase (06/04/2017 2:01 AM) Component Value Ref Range Amylase 102 30 - 110 U/L Specimen Performing Laboratory Blood - Arm, [facility], [facility]ENCY [place], [facility] [address] [place] [id number] Liver Panel (06/04/2017 2:01 AM) Component Value Ref Range Protein, Total 7.0 6.0 - 8.5 gm/dL Albumin 4.0 3.5 - 5.0 g/dL Total Bilirubin 0.8 0.1 - 1.2 mg/dL Bilirubin, Direct 0.3 0.0 - 0.4 mg/dL Alkaline Phosphatase 51 30 - 115 U/L AST 26 5 - 40 U/L ALT 29 5 - 50 U/L Specimen Performing Laboratory Blood - Arm, [facility], [facility] [place] [address] [place] [id number] Basic metabolic panel (Na, K+, Cl, CO2, [...] PATIENTS. Specimen Performing Laboratory Blood - Arm, [facility], [facility] [place] [address] [place] [phone] XR chest 2 views (06/04/2017 1:50 AM) Specimen Performing Laboratory GE RIS Narrative FINAL REPORT EXAM: 2 VIEW CHEST CLINICAL INDICATION: CHEST PAIN IMPRESSION: No evidence of focal lung consolidation, pulmonary edema or pleural effusion. The heart size is normal. Mediastinal contours are sharp. No evidence of an acute osseous abnormality or pneumothorax. Signed: Amilcar Murillo MD Report Verified Date/Time:06/04/2017 01:58:57 Reading Location: [address] Reading Room Procedure Note Interface, External [...] Report Verified Date/Time: 06/04/2017 01:58:57 Reading Location: [address] Reading Room after 03/26/2017
[2018-03-27 05:40] LABS: Urine Blood NEGATIVE (NEG); Urine Glucose NEGATIVE (NEG); Urine Protein NEGATIVE (NEG); Urine Specific Gravity 1.025 (1.005-1.030)
[2018-03-27 05:45] LABS: Absolute Lymphocytes (CBC) 1.7 K/uL (0.7-4.9); Absolute Monocytes 0.6 K/uL (0.1-1.3); Absolute Neutrophil 4.3 K/uL (1.8-8.0); Basophils % 0.6 % (0-1.3); Eosinophils % 2.2 % (0-4.4); Hematocrit 41.3 % (39.6-49.0); Lymphocytes % 25.5 % (15.3-44.8); MCH 34.4 pg (27.0-35.0); MCV 103.1 fL (80-100); MPV 6.5 fL (7.6-11.3); Monocytes % 8.4 % (3.3-12.3)
[2018-03-27 05:51] LABS: Bicarbonate 24 mEq/L (21-31); Glucose Level 108 mg/dL (65-120); Lipase 45 U/L (22-51); Potassium 3.9 mEq/L (3.6-5.0); Sodium Level 139 mEq/L (135-145)
[2018-03-27 05:57] LABS: ALT/SGPT 24 IU/L (10-60); AST/SGOT 23 IU/L (10-42); Albumin 4.1 g/dL (3.2-5.5); Alkaline Phosphatase 66 IU/L (42-121); Amylase Level 120 U/L (28-100); BUN Blood Urea Nitrogen 9 mg/dL (6-20); Bilirubin Direct 0.1 mg/dL (0-0.2); Bilirubin Total 0.6 mg/dL (0.3-1.2); Protein, Total 7.2 g/dL (6.0-8.3)
[2018-03-27 05:58] LABS: Urine Bacteria <20 /HPF (NONE SEEN); Urine Culture Reflex Order NOT NEEDED; Urine Mucus MOD /HPF (NONE SEEN); Urine RBC NONE SEEN /HPF (NONE SEEN)
[2018-03-27] MEDS ORDERED: ACETAMINOPHEN 325 MG TABLET ONE (06:23)
[2018-03-27] MEDS ORDERED: NA CHLORIDE 0.9% 1,000 ML ONE (07:23)
[2018-03-27] MEDS ORDERED: ONDANSETRON 4 MG/2 ML VIAL ONE ×2 (07:23→08:14)
[2018-03-27] MEDS ORDERED: MORPHINE 4 MG/ML SYR ONE ×2 (07:23→08:14)
--- NOTE | 2018-03-27 09:06 | RAD REPORT ---
EXAM DESCRIPTION: CTAbdomen Pelvis W Contrast - 03/27/2018 8:53 am CLINICAL HISTORY: Abdominal pain. Nausea and vomiting x1 day COMPARISON: 11/14/2017, 09/26/2017, 03/20/2017 TECHNIQUE: Biphasic CT imaging of the abdomen and pelvis was performed with 100 ml non-ionic IV cont rast. All CT scans are performed using dose optimization technique as appropriate and may include automated exposure control or mA/KV adjustment according to patient size. FINDINGS: Mild linear subsegmental atelectasis in both lung bases. The liver, spleen, pancreas, adrenal glands and kidneys are within normal limits. Postsurgical changes are present of a partial colectomy. A moderate fat containing ventral hernia is seen. No bowel obstruction, free fluid or abscess. The appendix appears surgically absent. No eviden ce of significant lymphadenopathy. No suspicious bony findings. IMPRESSION: No acute intra-abdominal or pelvic finding. Postsurgical changes of a partial colectomy noted.
--- NOTE | 2018-03-27 09:11 | EDPHYS ---
Physician Documentation [facility] Name: Johan Moreno Age: 38 yrs Sex: Male : 1980 Arrival Date: 03/27/2018 Time: 05:10 Bed 19 Private MD: ED Physician George Coates HPI: 03/27 06:21 This 38 yrs old Black Male presents to ER via Ambulatory with complaints of Abdominal kav Pain. 06:36 The patient presents with abdominal pain right lower quadrant, in the left lower kav quadrant. Onset: The symptoms/episode began/occurred acutely. The symptoms do not radiate. Associated signs and symptoms: Pertinent positives: nausea, vomiting, and diarrhea, headache, Pertinent negatives: blood in stools, chest pain, fever, hematuria, shortness of breath, testicular pain, vomiting blood. The symptoms are described as achy. Modifying factors: The symptoms are alleviated by nothing, the symptoms are aggravated by nothing. Severity of pain: At its worst the pain was mild just prior to arrival, in the emergency department the pain is unchanged. The patient has not experienced similar symptoms in the past. The patient has not recently seen a physician. Historical: - Allergies: 05:21 Toradol; ao - Home Meds: 05:21 None [Active]; ao - PMHx: 05:21 Crohn's; ao - PSHx: 05:21 Bowel resection; ao - Immunization history:: Adult Immunizations up to date. - Social history:: Smoking status: Patient uses tobacco products, smokes one-half pack cigarettes per day, Patient uses alcohol, occasionally. Patient/guardian denies using street drugs, IV drugs. - Ebola Screening: : Patient negative for fever greater than or equal to 101.5 degrees Fahrenheit, and additional compatible Ebola Virus Disease symptoms Patient denies exposure to infectious person Patient denies travel to an Ebola-affected area in the 21 days before illness onset. - Family history:: not pertinent. - Hospitalizations: : No recent hospitalization is reported. ROS: 06:36 Constitutional: Negative for fever, chills, and weight loss, Eyes: Negative for injury, kav pain, redness, and discharge, ENT: Negative for injury, pain, and discharge, Neck: Negative for injury, pain, and swelling, Cardiovascular: Negative for chest pain, palpitations, and edema, Respiratory: Negative for shortness of breath, cough, wheezing, and pleuritic chest pain, Back: Negative for injury and pain, : Negative for injury, bleeding, discharge, and swelling, MS/Extremity: Negative for injury and deformity, Skin: Negative for injury, rash, and discoloration, Neuro: Negative for headache, weakness, numbness, tingling, and seizure, Psych: Negative for depression, anxiety, suicide ideation, homicidal ideation, and hallucinations, Allergy/Immunology: Negative for hives, rash, and allergies, Endocrine: Negative for neck swelling, polydipsia, polyuria, polyphagia, and marked weight changes, Hematologic/Lymphatic: Negative for swollen nodes, abnormal bleeding, and unusual bruising. 06:36 Abdomen/GI: Positive for abdominal pain, nausea, vomiting, and diarrhea, of the right lower quadrant and left lower quadrant. Exam: 06:36 Constitutional: This is a well developed, well nourished patient who is awake, alert, kav and in no acute distress. Head/Face: Normocephalic, atraumatic. Eyes: Pupils equal round and reactive to light, extra-ocular motions intact. Lids and lashes normal. Conjunctiva and sclera are non-icteric and not injected. Cornea within normal limits. Periorbital areas with no swelling, redness, or edema. ENT: Nares patent. No nasal discharge, no septal abnormalities noted. Tympanic membranes are normal and external auditory canals are clear. Oropharynx with no redness, swelling, or masses, exudates, or evidence of obstruction, uvula midline. Mucous membranes moist. Neck: Trachea midline, no thyromegaly or masses palpated, and no cervical lymphadenopathy. Supple, full range of motion without nuchal rigidity, or vertebral point tenderness. No Meningismus. Chest/axilla: Normal chest wall appearance and motion. Nontender with no deformity. No lesions are appreciated. Cardiovascular: Regular rate and rhythm with a normal S1 and S2. No gallops, murmurs, or rubs. Normal PMI, no JVD. No pulse deficits. Respiratory: Lungs have equal breath sounds bilaterally, clear to auscultation and percussion. No rales, rhonchi or wheezes noted. No increased work of breathing, no retractions or nasal flaring. Back: No spinal tenderness. No costovertebral tenderness. Full range of motion. Skin: Warm, dry with normal turgor. Normal color with no rashes, no lesions, and no evidence of cellulitis. MS/ Extremity: Pulses equal, no cyanosis. Neurovascular intact. Full, normal range of motion. Neuro: Awake and alert, GCS 15, oriented to person, place, time, and situation. Cranial nerves II-XII grossly intact. Motor strength 5/5 in all extremities. Sensory grossly intact. Cerebellar exam normal. Normal gait. Psych: Awake, alert, with orientation to person, place and time. Behavior, mood, and affect are within normal limits. 06:36 Abdomen/GI: Inspection: abdomen appears normal, Bowel sounds: normal, Palpation: mild abdominal tenderness, in the right lower quadrant and left lower quadrant. Vital Signs: 05:19 BP 129 / 81; Pulse 85; Resp 18; Temp 98.4(TE); Pulse Ox 98% on R/A; Weight 104.33 kg ao (R); Height 5 ft. 9 in. (175.26 cm) (R); Pain 5/10; 07:15 BP 144 / 97; Pulse 70; Resp 18 S; Temp 98.3(TE); Pulse Ox 98% on R/A; Pain 8/10; aa5 08:25 BP 146 / 102; Pulse 73; Resp 18; Pulse Ox 97% on R/A; mh5 09:21 BP 139 / 88; Pulse 70; Resp 18; Pulse Ox 96% on R/A; mh5 05:19 Body Mass Index 33.96 (104.33 kg, 175.26 cm) ao MDM: 05:13 Patient medically screened. pkl 06:36 Data reviewed: vital signs, nurses notes. kav 08:14 ED course: patient c/o pain. Morphine 4 mg iv x 1 dose ordered. kav 09:09 Data reviewed: lab test result(s), radiologic studies. [facility] 03/27 05:25 Order name: Amylase, Serum; Complete Time: 06:08 ao 03/27 06:08 Interpretation: Abnormal: MANNY 120. [facility] 03/27 05:25 Order name: Basic Metabolic Panel; Complete Time: 06:09 ao 03/27 09:08 Interpretation: Within normal limits. [facility] 03/27 05:25 Order name: CBC with Diff; Complete Time: 06:08 ao 03/27 06:09 Interpretation: Normal except: RBC 4.00; MCV 103.1; MPV 6.5. [facility] 03/27 05:25 Order name: Creatinine for Radiology; Complete Time: 06:20 ao 03/27 05:25 Order name: Hepatic Function; Complete Time: 06:08 ao 03/27 06:08 Interpretation: Within normal limits. 03/27 05:25 Order name: Lipase; Complete Time: 06:09 ao 03/27 06:09 Interpretation: Within normal limits. 03/27 05:25 Order name: Urine Microscopic Only; Complete Time: 06:19 ao 03/27 06:19 Interpretation: Within normal limits. 03/27 05:36 Order name: Urine Dipstick--Ancillary (enter results); Complete Time: 09:09 eb 03/27 09:09 Interpretation: Within normal limits. 03/27 05:36 Order name: Urine Dipstick-Ancillary; Complete Time: 06:08 EDMS 03/27 06:08 Interpretation: Within normal limits. 03/27 06:21 Order name: CT Abd/Pelvis - W/Contrast: rlq, llq abd pain; Complete Time: 09:07 [facility] 03/27 09:08 Interpretation: No acute disease. 03/27 05:25 Order name: IV Saline Lock; Complete Time: 05:36 ao 03/27 05:25 Order name: Labs collected and sent; Complete Time: 05:36 ao 03/27 05:25 Order name: Urine Dipstick-Ancillary (obtain specimen); Complete Time: 05:36 ao Administered Medications: 06:25 Drug: Tylenol 650 mg Route: PO; bs1 07:20 Follow up: Response: No adverse reaction; Pain is unchanged, physician notified aa5 07:21 Drug: NS 0.9% 1000 ml Route: IV; Rate: 1000 ml; Site: right antecubital; aa5 08:20 Follow up: IV Status: Completed infusion aa5 07:21 Drug: morphine 4 mg Route: IVP; Site: right antecubital; aa5 07:30 Follow up: Response: No adverse reaction aa5 07:21 Drug: Zofran 4 mg Route: IVP; Site: right antecubital; aa5 07:30 Follow up: Response: No adverse reaction aa5 08:11 Drug: morphine 4 mg Route: IVP; Site: right antecubital; aa5 08:20 Follow up: Response: No adverse reaction aa5 08:11 Drug: Zofran 4 mg Route: IVP; Site: right antecubital; aa5 08:20 Follow up: Response: No adverse reaction aa5 Disposition: 03/27/18 09:11 Discharged to Home. Impression: Lower abdominal pain, unspecified. - Condition is Stable. - Discharge Instructions: Abdominal Pain, Adult. - Medication Reconciliation Form, Thank You Letter, Antibiotic Education, Prescription Opioid Use, Work release form form. - Follow up: Private Physician; When: 1 - 2 days; Reason: Recheck today's complaints, Continuance of care, Re-evaluation by your physician. - Problem is new. - Symptoms have improved. - Notes: ensure adequate hydration Addendum: 03/31/2018 19:01 Co-signature as Attending Physician, George rm Signatures: Dispatcher [employer] EDMS George Coates MD MD pkl Vern, Katherine, ROBOTICS TESTING TECHNICIAN ROBOTICS TESTING TECHNICIAN Lexi Crooks RN RN aa5 Graham Adorno RN Lena Cerda RN RN bs1 Corrections: (The following items were deleted from the chart) 03/27 06:09 06:09 Within normal limits. grazyna geronimo 06:20 06:20 Within normal limits. grazyna geronimo 09:08 06:09 OrderId: [id number] PrecursorText: InterpretationText: grazyna geronimo 09:48 09:11 03/27/2018 09:11 Discharged to Home. Impression: Lower abdominal pain, aa5 unspecified. Condition is Stable. Forms are Medication Reconciliation Form, Thank You Letter, Antibiotic Education, Prescription Opioid Use. Follow up: Private Physician; When: 1 - 2 days; Reason: Recheck today's complaints, Continuance of care, Re-evaluation by your physician. Problem is new. Symptoms have improved. kav
--- NOTE | 2018-03-27 09:11 | ER ---
Nurse's Notes [facility] Name: Johan Moreno Age: 38 yrs Sex: Male : 1980 Arrival Date: 03/27/2018 Time: 05:10 Bed 19 Private MD: Diagnosis: Lower abdominal pain, unspecified Presentation: 03/27 05:18 Presenting complaint: Patient states: Abdominal pain since yesterday and also a ao headache. Patient also complain of nausea and vomiting x4 since yesterday. Transition of care: patient was not received from another setting of care. Onset of symptoms was March 26, 2018 at 19:00. Risk Assessment: Do you want to hurt yourself or someone else? Patient reports no desire to harm self or others. Initial Sepsis Screen: Does the patient meet any 2 criteria? No. Patient's initial sepsis screen is negative. Does the patient have a suspected source of infection? No. Patient's initial sepsis screen is negative. Care prior to arrival: None. 05:18 Method Of Arrival: Ambulatory ao 05:18 Acuity: KJ 3 ao Triage Assessment: 05:22 General: Appears in no apparent distress. uncomfortable, Behavior is appropriate for ao age. Pain: Complains of pain in abdomen Pain does not radiate. Pain currently is 8 out of 10 on a pain scale. EENT: No signs and/or symptoms were reported regarding the EENT system. Neuro: Level of Consciousness is awake, alert, obeys commands, Oriented to person, place, time, situation, Appropriate for age Moves all extremities. Speech is normal, Facial symmetry appears normal. Cardiovascular: Patient's skin is warm and dry. Cardiovascular: Denies chest pain, shortness of breath. Respiratory: Airway is patent Respiratory effort is even, unlabored, Respiratory pattern is regular, symmetrical. GI: Abdomen is non-distended. : No signs and/or symptoms were reported regarding the genitourinary system. Derm: Skin is intact, Skin is normal, black, Skin temperature is warm. Musculoskeletal: No signs and/or symptoms reported regarding the musculoskeletal system. Historical: - Allergies: 05:21 Toradol; ao - Home Meds: 05:21 None [Active]; ao - PMHx: 05:21 Crohn's; ao - PSHx: 05:21 Bowel resection; ao - Immunization history:: Adult Immunizations up to date. - Social history:: Smoking status: Patient uses tobacco products, smokes one-half pack cigarettes per day, Patient uses alcohol, occasionally. Patient/guardian denies using street drugs, IV drugs. - Ebola Screening: : Patient negative for fever greater than or equal to 101.5 degrees Fahrenheit, and additional compatible Ebola Virus Disease symptoms Patient denies exposure to infectious person Patient denies travel to an Ebola-affected area in the 21 days before illness onset. - Family history:: not pertinent. - Hospitalizations: : No recent hospitalization is reported. Screenin:25 Abuse screen: Denies threats or abuse. Denies injuries from another. Nutritional ao screening: No deficits noted. Tuberculosis screening: No symptoms or risk factors identified. Fall Risk None identified. Assessment: 05:26 General: See triage assessment. ao 05:26 GI: Bowel sounds present X 4 quads. Abd is soft and non tender. ao 07:15 General: Appears uncomfortable, Behavior is calm, cooperative. Pain: Complains of pain aa5 in right lower quadrant and left lower quadrant, and forehead Pain does not radiate. Pain currently is 8 out of 10 on a pain scale. Quality of pain is described as aching, crampy, Pain began 2-3 days ago. Is continuous. Neuro: Level of Consciousness is awake, alert, obeys commands, Oriented to person, place, time, situation. Cardiovascular: Heart tones S1 S2 present Rhythm is regular. Respiratory: Airway is patent Respiratory effort is even, unlabored, Respiratory pattern is regular, symmetrical. GI: Abdomen is round non-distended, Bowel sounds present X 4 quads. Abd is soft and non tender X 4 quads. Reports nausea, vomiting, Pt also reports chronic diarrhea. : No signs and/or symptoms were reported regarding the genitourinary system. EENT: No signs and/or symptoms were reported regarding the EENT system. Derm: Skin is dry, Skin is normal, Skin temperature is warm. Musculoskeletal: Range of motion: intact in all extremities. 07:15 Reassessment: Patient and/or family updated on plan of care and expected duration. Pain aa5 level reassessed. Patient states symptoms have not improved. 07:15 Reassessment: Awaiting CT scan, pt reports finishing drinking CT oral contrast around aa5 0700. . 08:10 Reassessment: Patient and/or family updated on plan of care and expected duration. Pain aa5 level reassessed. Patient states symptoms have not improved. Pain: Pain currently is 8 out of 10 on a pain scale. Neuro: Level of Consciousness is awake, alert, obeys commands, Oriented to person, place, time, situation. Derm: Skin is dry, Skin is normal, Skin temperature is warm. 08:57 Reassessment: Patient and/or family updated on plan of care and expected duration. Pain aa5 level reassessed. Patient states feeling better. Pain: Pain currently is 6 out of 10 on a pain scale. Neuro: Level of Consciousness is awake, alert, obeys commands, Oriented to person, place, time, situation. Respiratory: Airway is patent Respiratory effort is even, unlabored, Respiratory pattern is regular, symmetrical. Derm: Skin is dry, Skin is normal, Skin temperature is warm. Vital Signs: 05:19 BP 129 / 81; Pulse 85; Resp 18; Temp 98.4(TE); Pulse Ox 98% on R/A; Weight 104.33 kg ao (R); Height 5 ft. 9 in. (175.26 cm) (R); Pain 5/10; 07:15 BP 144 / 97; Pulse 70; Resp 18 S; Temp 98.3(TE); Pulse Ox 98% on R/A; Pain 8/10; aa5 08:25 BP 146 / 102; Pulse 73; Resp 18; Pulse Ox 97% on R/A; mh5 09:21 BP 139 / 88; Pulse 70; Resp 18; Pulse Ox 96% on R/A; mh5 05:19 Body Mass Index 33.96 (104.33 kg, 175.26 cm) ao ED Course: 05:10 Patient arrived in ED. am2 05:13 George Coates MD is Attending Physician. pkl 05:17 Graham Adorno, CANDE is Primary Nurse. ao 05:19 Triage completed. ao 05:22 Arm band placed on right wrist. Patient placed in an exam room, on a stretcher, on ao pulse oximetry, Patient notified of wait time. 05:25 Patient has correct armband on for positive identification. Pulse ox on. NIBP on. ao 05:27 Abdominal pain workup initiated per nursing protocol. ao 05:37 Inserted saline lock: 20 gauge in right antecubital area, using aseptic technique. ao ,using aseptic technique. By CANDE Paredes Blood collected. 06:04 Gali Dockery FNP is PHCP. kav 06:04 George Coates MD is Attending Physician. kav 06:06 Gali Dockery FNP is PHCP. kav 06:07 George Coates MD is Attending Physician. kav 07:12 Report given to CANDE Calderon. ao 07:39 Lexi Pete RN is Primary Nurse. aa5 08:10 No provider procedures requiring assistance completed. aa5 08:47 CT completed. Patient tolerated procedure well. Patient moved to CT via wheelchair. sj Patient moved back from CT. 08:53 CT Abd/Pelvis - W/Contrast: rlq, llq abd pain In Process Unspecified. EDMS 09:45 IV discontinued, intact, bleeding controlled, No redness/swelling at site. Pressure aa5 dressing applied. Administered Medications: 06:25 Drug: Tylenol 650 mg Route: PO; bs1 07:20 Follow up: Response: No adverse reaction; Pain is unchanged, physician notified aa5 07:21 Drug: NS 0.9% 1000 ml Route: IV; Rate: 1000 ml; Site: right antecubital; aa5 08:20 Follow up: IV Status: Completed infusion aa5 07:21 Drug: morphine 4 mg Route: IVP; Site: right antecubital; aa5 07:30 Follow up: Response: No adverse reaction aa5 07:21 Drug: Zofran 4 mg Route: IVP; Site: right antecubital; aa5 07:30 Follow up: Response: No adverse reaction aa5 08:11 Drug: morphine 4 mg Route: IVP; Site: right antecubital; aa5 08:20 Follow up: Response: No adverse reaction aa5 08:11 Drug: Zofran 4 mg Route: IVP; Site: right antecubital; aa5 08:20 Follow up: Response: No adverse reaction aa5 Outcome: 09:11 Discharge ordered by . kav 09:45 Discharged to home ambulatory, with family. aa5 09:45 Condition: improved 09:45 Discharge instructions given to patient, Instructed on discharge instructions, follow up and referral plans. Demonstrated understanding of instructions, follow-up care. 09:48 Patient left the ED. aa5 Signatures: Dispatcher [employer] George Landa MD MD pkl Gali Dockery, SILVER MINER SILVER MINER Corazon Jackson Audri, RN RN aa5 Graham Adorno RN RN Pooja Hernandez [facility] Afshan Caro [facility] Lena Anglin RN RN bs1
== END 2018-03-27 09:48 | disposition home or self-care (01) ==
LOC: ER 05:08
DX: R10.30 Lower abdominal pain, unspecified (principal); F17.210 Nicotine dependence, cigarettes, uncomplicated; Z88.6 Allergy status to analgesic agent
CPT/HCPCS: 36415; 74177; 80048; 80076; 81003; 81015; 82150; 83690; 85025; 96361; 96374; 96375; 99284; J2405; J7030; Q9967

== ENCOUNTER 2018-05-09 18:13 | Emergency (ER) | payer SELFPAY ==
--- OUTSIDE RECORDS SUMMARY | 2018-05-09 18:15 | XMS REPORT | Clinical Summary ---
:1980 Author Organization [facility] Address [address] [place] [address] Care Team Providers Name Role Phone Asked, [...] unspecified MD Timothy location (Primary Dx) after 05/08/2017 Social History Tobacco Use Types Packs/Day Years Used Date Current Some Day Smoker Cigarettes 1 Smokeless Tobacco: Never Used Tobacco Cessation: Ready to Quit: No; Counseling Given: No Alcohol Use Drinks/Week oz/Week Comments Yes occationally Sex Assigned at Date Recorded Not on file Last Filed Vital Signs Vital Sign Reading Time Taken Blood Pressure 109/77 09/03/2017 3:00 AM [facility] Pulse 89 09/03/2017 2:54 AM [facility] Temperature 36.7 C (98 F) 09/03/2017 1:08 AM [facility] Respiratory Rate 18 09/03/2017 2:54 AM [facility] Oxygen Saturation 99% 09/03/2017 2:54 AM [facility] Inhaled Oxygen Concentration - - Weight - - Height 180.3 cm (5' 11") 09/03/2017 1:08 AM [facility] Body Mass Index - - Plan of Treatment Health Maintenance Due Date Last Done Comments INFLUENZA VACCINE 05/15/2018 Procedures Procedure Name Priority Date/Time Associated Comments Diagnosis CT ABDOMEN PELVIS W STAT 09/03/2017 3:30 Results for this CONTRAST AM [facility] procedure are in the results section. URINALYSIS SCREEN AND STAT 09/03/2017 2:48 Results for this MICROSCOPY, WITH AM [facility] procedure are in REFLEX TO CULTURE the results section. URINE CULTURE STAT 09/03/2017 2:48 Results for this AM [facility] procedure are in the results section. URINE DRUGS OF ABUSE STAT 09/03/2017 2:47 Results for this SCREEN AM [facility] procedure are in the results section. ESTIMATED GFR STAT 09/03/2017 2:39 Results for this AM [facility] procedure are in the results section. ALCOHOL LEVEL, BLOOD STAT 09/03/2017 2:39 Results for this AM [facility] procedure are in the results section. LIPASE LEVEL STAT 09/03/2017 2:39 Results for this AM [facility] procedure are in the results section. COMPREHENSIVE STAT 09/03/2017 2:39 Results for this METABOLIC PANEL AM [facility] procedure are in the results section. HC COMPLETE BLD COUNT STAT 09/03/2017 2:39 Results for this W/AUTO DIFF AM [facility] procedure are in the results section. ESTIMATED GFR STAT 06/23/2017 10:12 Results for this PM CDT procedure are in the results section. LIPASE LEVEL STAT 06/23/2017 10:12 Results for this PM CDT procedure are in the results section. COMPREHENSIVE STAT 06/23/2017 10:12 Results for this METABOLIC PANEL PM CDT procedure are in the results section. URINALYSIS SCREEN AND STAT 06/23/2017 10:12 Results for this MICROSCOPY, WITH PM CDT procedure are in REFLEX TO CULTURE the results section. HC COMPLETE BLD COUNT STAT 06/23/2017 10:12 Results for this W/AUTO DIFF PM CDT procedure are in the results section. URINE CULTURE STAT 06/23/2017 10:12 Results for this PM CDT procedure are in the results section. CT ABDOMEN PELVIS W STAT 06/19/2017 2:36 Results for this CONTRAST PM CDT procedure are in the results section. URINE CULTURE Routine 06/19/2017 1:07 Results for this PM CDT procedure are in the results section. URINALYSIS SCREEN AND Routine 06/19/2017 12:59 Results for this MICROSCOPY, WITH PM CDT procedure are in REFLEX TO CULTURE the results section. LACTIC ACID LEVEL STAT 06/19/2017 12:48 Results for this PM CDT procedure are in the results section. ESTIMATED GFR STAT 06/19/2017 12:48 Results for this PM CDT procedure are in the results section. LIPASE LEVEL STAT 06/19/2017 12:48 Results for this PM CDT procedure are in the results section. AMYLASE LEVEL STAT 06/19/2017 12:48 Results for this PM CDT procedure are in the results section. COMPREHENSIVE STAT 06/19/2017 12:48 Results for this METABOLIC PANEL PM CDT procedure are in the results section. HC COMPLETE BLD COUNT STAT 06/19/2017 12:48 Results for this W/AUTO DIFF PM CDT procedure are in the results section. after 05/08/[address] Abdomen Pelvis W Contrast (09/03/2017 3:30 AM)Only the most recent of2 resultswithin the time period is included. Narrative Performed At EXAMINATION:CT ABDOMEN PELVIS W CONTRAST [facility] CLINICAL HISTORY:abdominal pain TECHNIQUE: Multiple axial images [...] acute osseous abnormalities. CONCLUSION: No emergent findings. [facility]-[id number] Procedure Note Interface, Radiology Results Incoming - 09/03/2017 3:42 AM [facility] EXAMINATION: CT ABDOMEN PELVIS W CONTRAST CLINICAL [...] acute osseous abnormalities. CONCLUSION: No emergent findings. [facility]-[id number] Performing Organization Address City/[facility] Phone Number [facility] [address] [place] [address] Urinalysis screen and microscopy, with reflex to culture (09/03/2017 2:48 AM) Only the most recent of3 resultswithin the time period is included. Specimen site Clean catch [facility] DEPARTMENT OF PATHOLOGY AND GENOMIC MEDICINE Color, UA Straw [facility] DEPARTMENT OF PATHOLOGY AND GENOMIC MEDICINE Appearance, UA Clear [facility] DEPARTMENT OF PATHOLOGY AND GENOMIC MEDICINE Specific gravity, UA 1.017 1.001 - 1.035 [facility] DEPARTMENT OF PATHOLOGY AND GENOMIC MEDICINE pH, UA 5.0 5.0 - 8.5 [facility] DEPARTMENT OF PATHOLOGY AND GENOMIC MEDICINE Protein, UA Negative Negative [facility] DEPARTMENT OF PATHOLOGY AND GENOMIC MEDICINE Glucose, UA Negative Negative [facility] DEPARTMENT OF PATHOLOGY AND GENOMIC MEDICINE Ketones, UA Negative Negative [facility] DEPARTMENT OF PATHOLOGY AND GENOMIC MEDICINE Bilirubin, UA Negative Negative [facility] DEPARTMENT OF PATHOLOGY AND GENOMIC MEDICINE Blood, UA Small (A) Negative [facility] DEPARTMENT OF PATHOLOGY AND GENOMIC MEDICINE Nitrite, UA Negative Negative [facility] DEPARTMENT OF PATHOLOGY AND GENOMIC MEDICINE Urobilinogen, UA <2.0 <2.0 [facility] DEPARTMENT OF PATHOLOGY AND GENOMIC MEDICINE Leukocyte esterase, UA Negative Negative [facility] DEPARTMENT OF PATHOLOGY AND GENOMIC MEDICINE WBC, UA 1 0 - 1 /HPF [facility] DEPARTMENT OF PATHOLOGY AND GENOMIC MEDICINE RBC, UA 1 0 - 1 /HPF [facility] DEPARTMENT OF PATHOLOGY AND GENOMIC MEDICINE Bacteria, UA None seen None seen [facility] DEPARTMENT OF PATHOLOGY AND GENOMIC MEDICINE Yeast, UA None seen [facility] DEPARTMENT OF PATHOLOGY AND GENOMIC MEDICINE Yeast with pseudohyphae, UA None seen [facility] DEPARTMENT OF PATHOLOGY AND GENOMIC MEDICINE Specimen Urine Performing Organization Address City/[facility]/Zipcode Phone Number [facility] DEPARTMENT OF PATHOLOGY AND [address] [place] [phone] GENOMIC MEDICINE Urine culture (09/03/2017 2:48 AM)Only the most recent of3 resultswithin the time period is included. Urine culture SEE COMMENTComment: Bacteriuria [facility] DEPARTMENT OF PATHOLOGY screen negative. AND GENOMIC MEDICINE Performing Organization Address [facility] Phone Number [facility] DEPARTMENT OF PATHOLOGY AND [address] [place] [address] [facility] Urine drugs of abuse screen (09/03/2017 2:47 AM) Amphetamine screen, urine Negative [facility] DEPARTMENT OF PATHOLOGY AND GENOMIC MEDICINE Barbiturate screen, urine Negative [facility] DEPARTMENT OF PATHOLOGY AND GENOMIC MEDICINE Benzodiazepine screen, Negative [facility] DEPARTMENT OF urine PATHOLOGY AND GENOMIC MEDICINE Cannabinoid screen, urine Positive (A) [facility] DEPARTMENT OF PATHOLOGY AND GENOMIC MEDICINE Cocaine screen, urine Negative [facility] DEPARTMENT OF PATHOLOGY AND GENOMIC MEDICINE Methadone metabolite Negative [facility] DEPARTMENT OF (EDDP), urine PATHOLOGY AND GENOMIC MEDICINE Opiates screen, urine Positive (A) [facility] DEPARTMENT OF PATHOLOGY AND GENOMIC MEDICINE Oxycodone screen, urine Negative [facility] DEPARTMENT OF PATHOLOGY AND GENOMIC MEDICINE Phencyclidine screen, urine Negative [facility] DEPARTMENT OF PATHOLOGY AND GENOMIC MEDICINE Tricyclic screen, urine Negative [facility] DEPARTMENT OF Comment: PATHOLOGY AND GENOMIC Drug screen minimum concentration of detectability MEDICINE Zebprypzadqg3889 ng/mL Barbiturates 200 ng/mL Nlovfsgrzflwggx932 ng/mL Yqakgbf526 ng/mL Wetcmocvp918 ng/mL Uoumjhh835 ng/mL Lkilxcxkp292 ng/mL Phencyclidine 25 ng/mL Amhnpxyhrqqv43 ng/mL Fkenqdzxjh5443 ng/mL Negative test results indicates presumptive evidence of lack of clinically significant drug concentration in this urine specimen. Positive test results are presumptive evidence of clinically significant drug concentration in this urine specimen. Testing performed for medical purposes only. Specimen Urine Performing Organization Address [facility] Phone Number [facility] DEPARTMENT OF PATHOLOGY AND [address] [place] [phone] [facility] Estimated GFR (09/03/2017 2:39 AM)Only the most recent of3 resultswithin the time period is included. GFR Non Af Amer >90 mL/min/1.73 m2 [facility] DEPARTMENT OF PATHOLOGY AND GENOMIC MEDICINE GFR Af Amer >90 mL/min/1.73 m2 [facility] DEPARTMENT OF Comment: PATHOLOGY AND GENOMIC Chronic kidney disease: <60 mL/min/1.73m2 MEDICINE Kidney failure: <15 mL/min/1.73m2 The estimated GFR is calculated from the IDMS-traceable Modification of Diet in Renal Disease Equation. The accuracy of the calculation is poor when the creatinine is normal. Calculated values >90 mL/min/1.73m2 are not reported. This equation has not been validated in children (<18 years), women, the elderly (>70 years), or ethnic groups other than Caucasians and Americans. Specimen Plasma specimen Performing Organization Address City/State/Zipcode Phone Number [facility] DEPARTMENT OF PATHOLOGY AND [address] [place] [address] [employer] [facility] CBC with platelet and differential (09/03/2017 2:39 AM)Only the most recent of3 resultswithin the time period is included. WBC 8.53 4.50 - 11.00 k/uL [facility] DEPARTMENT OF PATHOLOGY AND GENOMIC MEDICINE RBC 4.25 (L) 4.40 - 6.00 m/uL [facility] DEPARTMENT OF PATHOLOGY AND GENOMIC MEDICINE HGB 14.6 14.0 - 18.0 g/dL [facility] DEPARTMENT OF PATHOLOGY AND GENOMIC MEDICINE HCT 43.3 41.0 - 51.0 % [facility] DEPARTMENT OF PATHOLOGY AND GENOMIC MEDICINE MCV 101.9 (H) 82.0 - 100.0 fL [facility] DEPARTMENT OF PATHOLOGY AND GENOMIC MEDICINE MCH 34.4 (H) 27.0 - 34.0 pg [facility] DEPARTMENT OF PATHOLOGY AND GENOMIC MEDICINE MCHC 33.7 31.0 - 37.0 g/dL [facility] DEPARTMENT OF PATHOLOGY AND GENOMIC MEDICINE RDW - SD 46.2 37.0 - 55.0 fL [facility] DEPARTMENT OF PATHOLOGY AND GENOMIC MEDICINE MPV 8.7 (L) 8.8 - 13.2 fL [facility] DEPARTMENT OF PATHOLOGY AND GENOMIC MEDICINE Platelet count 192 150 - 400 k/uL [facility] DEPARTMENT OF PATHOLOGY AND GENOMIC MEDICINE Nucleated RBC 0.00 /100 WBC [facility] DEPARTMENT OF PATHOLOGY AND GENOMIC MEDICINE Neutrophils 93.7 (H) 39.0 - 69.0 % [facility] DEPARTMENT OF PATHOLOGY AND GENOMIC MEDICINE Lymphocytes 5.0 (L) 25.0 - 45.0 % [facility] DEPARTMENT OF PATHOLOGY AND GENOMIC MEDICINE Monocytes 0.6 0.0 - 10.0 % [facility] DEPARTMENT OF PATHOLOGY AND GENOMIC MEDICINE Eosinophils 0.1 0.0 - 5.0 % [facility] DEPARTMENT OF PATHOLOGY AND GENOMIC MEDICINE Basophils 0.1 0.0 - 1.0 % [facility] DEPARTMENT OF PATHOLOGY AND GENOMIC MEDICINE Immature granulocytes 0.5Comment: 0.0 - 1.0 % [facility] DEPARTMENT OF "Immature PATHOLOGY AND GENOMIC granulocytes" MEDICINE (promyelocytes, myelocytes, metamyelocytes) Specimen Blood Performing Organization Address [facility] Centercode Phone Number [facility] DEPARTMENT OF PATHOLOGY AND [address] [place] [address] MEDICINE Lipase level (09/03/2017 2:39 AM)Only the most recent of3 resultswithin the time period is included. Lipase 31 13 - 60 U/L [facility] DEPARTMENT OF PATHOLOGY AND GENOMIC MEDICINE Specimen Plasma specimen Performing Organization Address City/[facility] Centercode Phone Number [facility] DEPARTMENT OF PATHOLOGY AND [address] [place] [address] Alcohol level, blood (09/03/2017 2:39 AM) Alcohol None Detected mg/dL [facility] DEPARTMENT OF PATHOLOGY Comment: AND [facility] MEDICINE Normal None Detected Legal Intoxication in [place]80 mg/dL (0.08%) - Whole Blood Toxic Bckrvfedxbzbo371 mg/dL (0.2%) Potentially [place]190 - 500 mg/dL (0.35 - 0.5%) Alcohol percent None Detected % [facility] DEPARTMENT OF PATHOLOGY AND GENOMIC MEDICINE Specimen Plasma specimen Performing Organization Address [facility] Phone Number [facility] DEPARTMENT OF PATHOLOGY AND [address] [place] [phone] [facility] MEDICINE Comprehensive metabolic panel (09/03/2017 2:39 AM)Only the most recent of3 resultswithin the time period is included. Sodium 137 135 - 148 mEq/L [facility] DEPARTMENT OF PATHOLOGY AND GENOMIC MEDICINE Potassium 4.2 3.5 - 5.0 mEq/L [facility] DEPARTMENT OF PATHOLOGY AND GENOMIC MEDICINE Chloride 102 98 - 112 mEq/L [facility] DEPARTMENT OF PATHOLOGY AND GENOMIC MEDICINE CO2 20 (L) 24 - 31 mEq/L [facility] DEPARTMENT OF PATHOLOGY AND GENOMIC MEDICINE Anion gap 15 7 - 15 mEq/L [facility] DEPARTMENT OF Comment: PATHOLOGY AND GENOMIC Starting from January , anion gap calculation MEDICINE no longer incorporates potassium. Please note the change. BUN 7 6 - 20 mg/dL [facility] DEPARTMENT OF PATHOLOGY AND GENOMIC MEDICINE Creatinine 0.9 0.7 - 1.2 mg/dL [facility] DEPARTMENT OF PATHOLOGY AND GENOMIC MEDICINE Glucose 121 (H) 65 - 99 mg/dL [facility] DEPARTMENT OF PATHOLOGY AND GENOMIC MEDICINE Calcium 9.1 8.3 - 10.2 mg/dL [facility] DEPARTMENT OF PATHOLOGY AND GENOMIC MEDICINE Protein 7.6 6.3 - 8.3 g/dL [facility] DEPARTMENT OF Comment: PATHOLOGY AND GENOMIC [place] 4.6-7.0 g/dL MEDICINE 1 week 4.4-7.6 g/dL 7 months-1year5.1-7.3 g/dL 1-2 years5.6-7.5 g/dL >3 years6.0-8.0 g/dL 18-150 6.3-8.3 g/dL Albumin 4.1 3.5 - 5.0 g/dL [facility] DEPARTMENT OF PATHOLOGY AND GENOMIC MEDICINE A/G ratio 1.2 0.7 - 3.8 [facility] DEPARTMENT OF PATHOLOGY AND GENOMIC MEDICINE Alkaline phosphatase 72 40 - 129 U/L [facility] DEPARTMENT OF PATHOLOGY AND GENOMIC MEDICINE AST 22 10 - 50 U/L [facility] DEPARTMENT OF PATHOLOGY AND GENOMIC MEDICINE ALT 20 5 - 50 U/L [facility] DEPARTMENT OF PATHOLOGY AND GENOMIC MEDICINE Total bilirubin 0.6 0.0 - 1.2 mg/dL [facility] DEPARTMENT OF PATHOLOGY AND GENOMIC MEDICINE Specimen Plasma specimen Performing Organization Address [facility] Phone Number [facility] DEPARTMENT OF PATHOLOGY AND [address] [place] [address] GENOMIC MEDICINE Lactic acid level (06/19/2017 12:48 PM) Lactic acid 1.5 0.5 - 2.2 mmol/L [facility] DEPARTMENT OF PATHOLOGY AND GENOMIC MEDICINE Specimen Plasma specimen Performing Organization Address [facility] Phone Number [facility] DEPARTMENT OF PATHOLOGY AND [address] [place], [place] [phone] GENOMIC MEDICINE Amylase level (06/19/2017 12:48 PM) Amylase 43 13 - 53 U/L [facility] DEPARTMENT OF PATHOLOGY AND GENOMIC MEDICINE Specimen Plasma specimen Performing Organization Address [facility] Phone Number [facility] DEPARTMENT OF PATHOLOGY AND [address] [place], [place] [phone] GENOMIC MEDICINE after 05/08/2017 Insurance Payer Benefit Plan / Group Subscriber ID Type Phone Address [facility] xxxxxxxxxxxxx HMO [phone] [place] [phone]
--- OUTSIDE RECORDS SUMMARY | 2018-05-09 18:16 | XMS REPORT | Clinical Summary ---
:1980 Author Organization [facility] Address [address] [place] [address] Phone Care Team Providers Name Role Phone [...] contusion, right, initial encounter (Primary Dx);Gastroenteritis after 05/08/2017 Social History Tobacco Use Types [...] 10e3/L Specimen Performing Laboratory Blood - Arm, [facility], [facility] [address] [place] [phone] CBC with platelet count + automated diff (06/04/2017 2:01 AM) Specimen Performing Laboratory Blood Narrative The following orders were created for panel order CBC with platelet count + automated diff. Procedure Abnormality Status --------- ------ CBC with platelet count ...[[id number]]AbnormalFinal result Please view results for these tests on the individual orders. Lipase (06/04/2017 2:01 AM) Component Value Ref Range Lipase 62 40 - 240 U/L Specimen Performing Laboratory Blood - Arm, [facility], [facility], [facility] [address] [place] [phone] Amylase (06/04/2017 2:01 AM) Component Value Ref Range Amylase 102 30 - 110 U/L Specimen Performing Laboratory Blood - Arm, [facility], [facility], [facility] [address] [place] [phone] Liver Panel (06/04/2017 2:01 AM) Component Value Ref Range Protein, Total 7.0 6.0 - 8.5 gm/dL Albumin 4.0 3.5 - 5.0 g/dL Total Bilirubin 0.8 0.1 - 1.2 mg/dL Bilirubin, Direct 0.3 0.0 - 0.4 mg/dL Alkaline Phosphatase 51 30 - 115 U/L AST 26 5 - 40 U/L ALT 29 5 - 50 U/L Specimen Performing Laboratory Blood - Arm, [facility], [facility], [facility] [address] [place] [phone] Basic metabolic panel (Na, K+, Cl, CO2, [...] PATIENTS. Specimen Performing Laboratory Blood - Arm, [facility], [facility], [facility] [address] [place] [phone] XR chest 2 views (06/04/2017 1:50 AM) Specimen Performing Laboratory GE RIS Narrative FINAL REPORT EXAM: 2 VIEW CHEST CLINICAL INDICATION: CHEST PAIN IMPRESSION: No evidence of focal lung consolidation, pulmonary edema or pleural effusion. The heart size is normal. Mediastinal contours are sharp. No evidence of an acute osseous abnormality or pneumothorax. Signed: Amilcar Murillo MD Report Verified Date/Time:06/04/2017 01:58:57 Reading Location: [address] Reading Room Procedure Note Interface, External [...] Report Verified Date/Time: 06/04/2017 01:58:57 Reading Location: [address] Reading Room after 05/08/2017
--- OUTSIDE RECORDS SUMMARY | 2018-05-09 18:19 | XMS REPORT | Continuity of Care Document ---
:1980 Author Organization Interface Problems Problem Status Onset Classification Date Comments Source Date Reported Discharge 07/11/20 07/14/2017 [facility] Diagnosis: 17 Medical Inflammatory Center bowel disease STOMACH PAIN Active 07/11/[address] Discharge 06/24/20 06/27/2017 [facility] Diagnosis: [address] [place] [address] Abdominal pain Center, in male [place] ABD PAIN Active 06/24/[address],[facility] Discharge 06/18/20 06/21/2017 [facility] Diagnosis: 17 Medical History of Center inflammatory bowel disease Discharge 06/18/20 06/21/2017 [facility] Diagnosis: 17 Medical Abdominal pain, [place] LLQ ADOMINAL PAIN Active 06/17/[address] Discharge 06/06/20 06/09/2017 [facility] Diagnosis: 17 Drug-seeking behavior ABDOMINAL PAIN Active 06/06/[address] [place] [facility] 06/05/20 06/08/2017 [facility] Diagnosis: 17 City Accidental fall Discharge 06/05/20 06/08/2017 [facility] Diagnosis: Rib 17 City pain RIB PAIN Active 06/05/[address] Discharge 06/04/20 06/07/2017 [facility] Diagnosis: 17 Abdominal pain, acute, generalized Discharge 06/04/20 06/07/2017 [facility] Diagnosis: 17 Diarrhea Discharge 06/04/20 06/07/2017 [facility] Diagnosis: 17 Nausea & vomiting Crohn disease Resolved Problem 07/14/2017 [facility] Crohn disease Resolved Problem 06/09/2017 [facility] Medications Medication Details Route Status Patient Ordering Order Source Instructions Provider Date mesalamine 500 1,000 mg=2 Active 07/12/ [place] MG Extended cap, PO, 2017 Medical Release Capsule QID, # 112 Center cap, 0 Refill(s) Acetaminophen 1 - 2 tab, Active 07/12/ [facility] 300 MG / Codeine PO, Q6H, PRN 2017 Medical Phosphate 30 MG Pain, X 3 Center Oral Tablet day, # 20 [Tylenol with tab, 0 Codeine #3] Refill(s) Ondansetron 4 MG 4 mg=1 tab, Active [facility] Disintegrating PO, BID, PRN 2017 Medical Tablet [Zofran] Nausea and Center Vomiting, Dissolve tab under tongue, # 10 tab, 0 Refill(s) Metoclopramide 10 mg, 2 mL, Inactive [facility] Route: IVP, 2016 Medical Drug form: [place] INJ, ONCE, Dosing Weight 93.182, kg, Priority: STAT, Start date: 07/11/17 18:09:00 CDT, Stop date: 07/11/17 18:09:00 CDTNotes: (Same as: Reglan) Morphine 4 mg, 1 mL, Inactive [facility] Route: IVP2016 Medical Drug form: [place] SOLN, ONCE, Dosing Weight 93.182, kg, Priority: STAT, Start date: 07/11/17 18:08:00 CDT, Stop date: 07/11/17 18:08:00 CDTNotes: (Same as:MORPhine Sulfate) Acetaminophen 1 tab, Inactive [facility] 325 MG / Route: PO, 2016 Medical Hydrocodone Drug Form: [place] Bitartrate 5 MG TAB, Dosing Oral Tablet Weight 93.182, kg, ONCE, STAT, Start date: 07/11/17 17:58:00 CDT, Stop date: 07/11/17 17:58:00 CDTNotes: (Same as: [place] 325/5) Do not exceed 4gm/day of acetaminophe n. Zofran ODT 4 mg, 1 tab, Inactive [facility] Route: PO, 2016 Medical Drug form: [place] TABDIS, ONCE, Dosing Weight 93.182, kg, Priority: STAT, Start date: 07/11/17 17:19:00 CDT, Stop date: 07/11/17 17:19:00 CDTNotes: (Same as: Zofran ODT) Acetaminophen 1 tab, Inactive [facility] 325 MG / Route: PO, 2017 Medical Hydrocodone Drug Form: [place] Bitartrate 5 MG TAB, Dosing Oral Tablet Weight 93.182, kg, ONCE, STAT, Start date: 07/11/17 17:19:00 CDT, Stop date: 07/11/17 17:19:00 CDTNotes: (Same as: [place] 325/5) Do not exceed 4gm/day of acetaminophe n. Zofran ODT 4 mg, 1 tab, Inactive [facility] Route: PO, 2016 Medical Drug form: Center TABDIS, ONCE, Dosing Weight 93.182, kg, Priority: STAT, Start date: 06/24/17 6:30:00 CDT, Stop date: 06/24/17 6:30:00 CDTNotes: (Same as: Zofran ODT) tramadol 50 mg=1 tab, Active [place] hydrochloride 50 PO, Daily, 2017 Medical MG Oral Tablet Do not drive Center while taking this medication, X 5 day, # 5 tab, 0 Refill(s) Acetaminophen 1 tab, Inactive [place] 325 MG / Route: PO, 2017 Medical Hydrocodone Drug Form: [place] Bitartrate 5 MG TAB, Dosing Oral Tablet Weight [[place] 5/325] 93.182, kg, ONCE, STAT, Start date: 06/24/17 5:06:00 CDT, Stop date: 06/24/17 5:06:00 CDTNotes: (Same as: [place] 325/5) Do not exceed 4gm/day of acetaminophe n. Dilaudid 0.5 mg, 0.25 Inactive [facility] mL, Route: 2017 Medical IVP, Drug Center form: INJ, ONCE, Dosing Weight 93.182, kg, Priority: STAT, Start date: 06/24/17 5:05:00 CDT, Stop date: 06/24/17 5:05:00 CDTNotes: Same as: Dilaudid Morphine 6 mg, Route: Inactive [facility] IVP, ONCE, 2017 Medical Dosing Center Weight 93.182, kg, Priority: STAT, Start date: 06/24/17 3:35:00 CDT, Stop date: 06/24/17 3:35:00 CDT Zofran 4 mg, Route: Inactive [facility] IVP, Drug 2017 Medical form: INJ, Center ONCE, Dosing Weight 93.182, kg, Priority: STAT, Start date: 06/24/17 3:35:00 CDT, Stop date: 06/24/17 3:35:00 CDT Acetaminophen 325 mg=1 Active [place] 325 MG Oral tab, PO, 2017 Medical Tablet [Tylenol] Q4H, PRN Center Pain, X 10 day, # 60 tab, 0 Refill(s) tramadol 50 mg=1 tab, Active [place] hydrochloride 50 PO, Q6H, PRN 2017 Medical MG Oral Tablet Pain, For Center break through pain, X 3 day, # 12 tab, 0 Refill(s) sodium chloride 1,000 mL, Inactive [place] 0.9% 1000 ml INJ Rate: 1,000 2017 [facility] 1,000 mL ml/hr, [place] Infuse over: 1 hr, Route: IV, Dosing Weight 93.182 kg, Total Volume: 1,000, Start date: 06/18/17 2:36:00 CDT, Duration: 1 doses or times, Stop date: 06/18/17 3:35:00 CDT, Bolus Dose Ondansetron 4 mg, Route: Inactive [place] IVP, Drug 2016 Medical form: INJ, Center ONCE, Dosing Weight 93.182, kg, Priority: STAT, Start date: 06/18/17 2:10:00 CDT, Stop date: 06/18/17 2:10:00 CDT Morphine 4 mg, Route: Inactive [place] IVP, ONCE, 2017 Medical Dosing Center Weight 93.182, kg, Priority: STAT, Start date: 06/18/17 2:10:00 CDT, Stop date: 06/18/17 2:10:00 CDT Iohexol 100 mL, Inactive [place] Route: IVP, 2017 Medical Drug Form: [place] SOLN, Dosing Weight 93.182, kg, ONCALL, STAT, Start date: 06/18/17 1:04:00 CDT, Duration: 1 doses or times, Dose=2.2ml/k g, Max qurt=273ci -- "To be infused by Radiology Staff ONLY"Notes: (same as:Omnipaque 350). WASTE: F/P - Black; E - [employer] Trash [employer] Ondansetron 4 mg, 2 mL, No Longer [place] Route: IVP, Active 2016 Medical Drug form: [place] INJ, ONCE, Dosing Weight 93.182, kg, Priority: STAT, Start date: 06/17/17 23:53:00 CDT, Stop date: 06/17/17 23:53:00 CDTNotes: (Same as: Zofran) MEDICATION WASTE Product Size: 4 mg Product Wasted: ___ mg Morphine 4 mg, 1 mL, No Longer [place] Route: IVP, Active 2016 [facility] Drug form: [place] SOLN, ONCE, Dosing Weight 93.182, kg, Priority: STAT, Start date: 06/17/17 23:53:00 CDT, Stop date: 06/17/17 23:53:00 CDTNotes: (Same as:MORPhine Sulfate) Morphine 6 mg, Route: Inactive IVP, ONCE, 2016 [place] Dosing Weight 100, kg, Priority: STAT, Start date: 06/06/17 15:04:00 CDT, Stop date: 06/06/17 15:04:00 CDT Morphine 4 mg, 1 mL, Inactive Route: IVP, 2016 [place] Drug form: SOLN, ONCE, Dosing Weight 100, kg, Priority: STAT, Start date: 06/06/17 14:29:00 CDT, Stop date: 06/06/17 14:29:00 CDTNotes: (Same as: MORPhine Sulfate) NS (Bolus) IV 1,000 mL, Inactive 1,000 ml/hr, 2016 [place] Infuse Over: 1 hr, Route: IV, 1,000, Drug form: INJ, ONCE, Priority: STAT, Dosing Weight 100 kg, Start date: 06/06/17 14:29:00 CDT, Duration: 1 doses or times, Stop date: 06/06/17 14:29:00 CDT Zofran 4 mg, 2 mL, Inactive Route: IVP, 2016 [place] Drug form: INJ, ONCE, Dosing Weight 100, kg, Priority: STAT, Start date: 06/06/17 14:29:00 CDT, Stop date: 06/06/17 14:29:00 CDTNotes: (Same as: Zofran) MEDICATION WASTE Product Size: 4 mg Product Wasted: ___ mg sodium chloride 1,000 mL, Inactive 0.9% 1000 ml INJ Rate: 1,000 2016 [place] 1,000 mL ml/hr, Infuse over: 1 hr, Route: IV, Dosing Weight 93.182 kg, Total Volume: 1,000, Priority: STAT, Start date: 06/06/17 13:07:00 CDT, Duration: 1 doses or times, Stop date: 06/06/17 14:06:00 CDT tramadol 1 - 2 tabs, Active hydrochloride 50 PO, Q4-6H, 2017 [facility] Oral Tablet PRN [place] [Ultram] Score 7-10, X 4 day, # 30 tab, 0 Refill(s) Acetaminophen 1 - 2 tab, Active 300 MG / Codeine PO, Q4H, PRN 2017 [facility] Phosphate 30 MG Pain, X 4 City Oral Tablet day, # 36 [Tylenol with tab, 0 Codeine #3] Refill(s) Morphine 6 mg, 0.6 Inactive mL, Route: 2016 [facility] IM, Drug City form: INJ, ONCE, Dosing Weight 93.182, kg, Priority: STAT, Start date: 06/05/17 4:29:00 CDT, Stop date: 06/05/17 4:29:00 CDTNotes: (Same as:MORPhine Sulfate) Albuterol 0.833 3 mL, Route: Inactive MG/ML / NEB, Drug 2016 [facility] Ipratropium Form: SOLN [facility] [place] 0.167 Dosing MG/ML Inhalant Weight Solution 93.182, kg, QID, STAT, Start date: 06/05/17 4:29:00 CDT, Duration: 30 day, Stop date: 07/04/17 21:00:00 CDTNotes: (Same as: Duoneb) Acetaminophen 1 tab, Inactive 325 MG / Route: PO, 2016 [facility] Hydrocodone Drug Form: [facility] Bitartrate 5 MG TAB, Dosing Oral Tablet Weight 93.182, kg, ONCE, STAT, Start date: 06/05/17 4:20:00 CDT, Stop date: 06/05/17 4:20:00 CDT Acetaminophen 1 tab, Inactive 06/04[facility] 325 MG / Route: PO, 2016 [facility] Hydrocodone Drug Form: Bitartrate 5 MG TAB, Dosing Oral Tablet Weight 79.545, kg, ONCE, STAT, Start date: 06/04/17 13:17:00 CDT, Stop date: 06/04/17 13:17:00 CDT Ondansetron 4 MG 4 mg=1 tab, Active Oral Tablet PO, BID, # 2017 [facility] [Zofran] 10 tab, 0 Refill(s) Acetaminophen 1 tab, PO, Active 300 MG / Codeine Q6H, PRN 2016 [facility] Phosphate 30 MG Pain, X 7 Oral Tablet day, # 28 [Tylenol with tab, 0 Codeine #3] Refill(s) Morphine 2 mg, Route: Inactive IVP, ONCE, 2016 [facility] Dosing Weight 79.545, kg, Priority: STAT, Start date: 06/04/17 10:31:00 CDT, Stop date: 06/04/17 10:31:00 CDT Omnipaque 300 85 mL, Inactive injectable Route: IVP2016 [facility] solution Drug Form: SOLN, Dosing Weight 79.545, kg, ONCALL, GFR > 45 mL/min, STAT, Start date: 06/04/17 9:19:00 CDT, Duration: 1 doses or timesNotes: (Same as:Omnipaque 300). WASTE: F/P - Black; E - [place] Trash [employer] Morphine 4 mg, 1 mL, Inactive Route: IVP2016 [facility] Drug form: SOLN, ONCE, Dosing Weight 79.545, kg, Priority: STAT, Start date: 06/04/17 8:39:00 CDT, Stop date: 06/04/17 8:39:00 CDTNotes: (Same as:MORPhine Sulfate) Ondansetron 4 mg, 2 mL, Inactive Route: IVP2016 [facility] Drug form: INJ, ONCE, Dosing Weight 79.545, kg, Priority: STAT, Start date: 06/04/17 8:39:00 CDT, Stop date: 06/04/17 8:39:00 CDTNotes: (Same as: Zofran) MEDICATION WASTE Product Size: 4 mg Product Wasted: ___ mg Allergies, Adverse Reactions, Alerts Substance Category Reaction Severity Reaction Status Date Comments Source type Reported NKDA Assertion Drug Active [facility] Toradol Assertion Drug Active [facility] Immunizations Immunization Date Given Site Status Last Updated Comments Source Results Order Name Results Value Reference Date Interpretation Comments Source Range CHEM PANEL eGFR 126 07/11 Result Comment: The eGFR is calculated using the CKD-EPI formula. In most young, healthy individuals the eGFR will be >90 mL/ min/1.73m2. The eGFR declines with age. An eGFR of 60-89 may be normal in [facility] mL/min/1. some populations, particularly the elderly, for whom the CKD-EPI formula has not been extensively validated. Use of the eGFR is not recommended in the following populations: [address] Individuals with unstable creatinine concentrations, including patients and those with serious co-morbid conditions. Patients with extremes in muscle mass or diet. The data above are obtained from the National Kidney Disease Education Program (NKDEP) which additionally recommends that when the eGFR is used in patients with extremes of body mass index for purposes of drug dosing, the eGFR should be multiplied by the estimated BMI. CHEM PANEL CO2 24 meq/L 24 - 32 07/[address] CHEM PANEL Calcium Lvl 9.3 mg/dL 8.5 - 10.5 07/[address] CHEM PANEL Potassium 4.4 meq/L 3.5 - 5.1 07/11 [facility] CHEM PANEL Chloride Lvl 106 meq/L 95 - 109 07/[address] CHEM PANEL Sodium Lvl 138 meq/L 135 - 145 07/[address] CHEM PANEL Creatinine 0.91 mg/dL 0.50 - 07/11 [facility] Lvl 1.40 [facility] CHEM PANEL BUN 10 mg/dL 7 - 22 07/[address] CHEM PANEL Glucose Lvl 94 mg/dL 70 - 99 07/[address] CHEM PANEL AGAP 12.4 meq/L 10.0 - 07/11 [facility] 20.0 [facility] CHEM PANEL Bili Direct 0.1 mg/dL 0.0 - 0.3 07/[address] CHEM PANEL Globulin 3.6 g/dL 2.7 - 4.2 07/[address] CHEM PANEL A/G Ratio 1.1 0.7 - 1.6 07/[address] CHEM PANEL Bili Total 0.7 mg/dL 0.2 - 1.3 07/[address] CHEM PANEL Alk Phos 62 unit/L 39 - 136 07/[address] CHEM PANEL Bili 0.6 mg/dL 0.0 - 1.0 07/11 [facility]2016 [facility] CHEM PANEL AST 31 unit/L 0 - 37 07/[address] CHEM PANEL ALT 37 unit/L 0 - 65 07/[address] CHEM PANEL Total 7.6 g/dL 6.4 - 8.4 07/11 [facility]2016 [facility] CHEM PANEL Albumin Lvl 4.0 g/dL 3.5 - 5.0 07/[address] HEMATOLOGY Eosinophils 0.1 K/CMM 0.0 - 0.5 07/11 [facility]2016 [facility] HEMATOLOGY Basophils # 0.1 K/CMM 0.0 - 0.2 07/[address] HEMATOLOGY Macrocyte 1+ None [facility] 5:26 PM[facility] HEMATOLOGY Lymphocytes 1.2 K/CMM 1.0 - 5.5 07/[address] HEMATOLOGY Monocytes # 0.5 K/CMM 0.0 - 0.8 07/[address] HEMATOLOGY Basophils 0.7 % 0.0 - 1.0 07/[address] HEMATOLOGY Segs-Bands # 5.8 K/CMM 1.5 - 8.1 07/[address] HEMATOLOGY Lymphocytes 15.6 % 20.0 - 07/11 [facility] 40.0 [facility] HEMATOLOGY Segs 75.9 % 45.0 - 07/11 [facility] 75.0 [facility] HEMATOLOGY Eosinophils 0.9 % 0.0 - 4.0 07/[address] HEMATOLOGY Monocytes 6.9 % 2.0 - 12.0 07/[address] HEMATOLOGY MPV 6.9 fL 7.4 - 10.4 07/[address] HEMATOLOGY MCHC 33.7 g/dL 32.0 - 07/11 36.0 [facility] HEMATOLOGY RDW 13.8 % 11.5 - 07/11 14. [facility] HEMATOLOGY Platelet 211 K/CMM 133 - 450 07/11 [facility] HEMATOLOGY MCV 102.7 fL 80.0 - 07/11 94.0 [facility] HEMATOLOGY MCH 34.6 pg 27.0 - 07/11 31.0 [facility] HEMATOLOGY Hct 41.2 % 42.0 - 07/11 [place] 54.0 [facility] HEMATOLOGY Hgb 13.9 g/dL 14.0 - 07/11 [facility] 18.0 [facility] HEMATOLOGY WBC 7.6 K/CMM 3.7 - 10.4 07/11 [facility] HEMATOLOGY RBC 4.01 M/CMM 4.70 - 07/11 6. [facility] CHEM PANEL eGFR 129 06/24 Result Comment: The eGFR is calculated using the CKD-EPI formula. In most young, healthy individuals the eGFR will be >90 mL/ min/1.73m2. The eGFR declines with age. An eGFR of 60-89 may be normal in [facility] mL/min/1. some populations, particularly the elderly, for whom the CKD-EPI formula has not been extensively validated. Use of the eGFR is not recommended in the following populations: [address] Individuals with unstable creatinine concentrations, including patients and those with serious co-morbid conditions. Patients with extremes in muscle mass or diet. The data above are obtained from the National Kidney Disease Education Program (NKDEP) which additionally recommends that when the eGFR is used in patients with extremes of body mass index for purposes of drug dosing, the eGFR should be multiplied by the estimated BMI. CHEM PANEL Calcium Lvl 9.0 mg/dL 8.5 - 10.5 06/24 [facility] CHEM PANEL CO2 25 meq/L 24 - 32 06/24 [facility] CHEM PANEL Chloride Lvl 104 meq/L 95 - 109 06/24 [facility] CHEM PANEL Potassium 3.7 meq/L 3.5 - 5.1 06/24 [facility] CHEM PANEL Creatinine 0.87 mg/dL 0.50 - 06/24 [facility] CHEM PANEL Sodium Lvl 140 meq/L 135 - 145 06/[address] CHEM PANEL BUN 10 mg/dL 7 - 22 06/[address] CHEM PANEL Glucose Lvl 92 mg/dL 70 - 99 06/[address] CHEM PANEL AGAP 14.7 meq/L 10.0 - 09 [facility] 20.0 [facility] CHEM PANEL Lipase Lvl 412 unit/L 73 - 393 06/[address] CHEM PANEL Lactic Acid 0.8 mMol/L 0.5 - 2.2 06/24 [facility] /2016 [facility] CHEM PANEL Globulin 3.4 g/dL 2.7 - 4.2 06/[address] CHEM PANEL A/G Ratio 1.2 0.7 - 1.6 06/[address] CHEM PANEL Bili 0.7 mg/dL 0.0 - 1.0 06/[address] [facility] CHEM PANEL Total 7.5 g/dL 6.4 - 8.4 06/24 [facility] CHEM PANEL Bili Direct 0.1 mg/dL 0.0 - 0.3 06/[address] CHEM PANEL AST 22 unit/L 0 - 37 06/[address] CHEM PANEL ALT 34 unit/L 0 - 65 06/[address] CHEM PANEL Alk Phos 70 unit/L 39 - 136 06/[address] CHEM PANEL Bili Total 0.8 mg/dL 0.2 - 1.3 06/[address] CHEM PANEL Albumin Lvl 4.1 g/dL 3.5 - 5.0 06/[address] HEMATOLOGY Eosinophils 0.2 K/CMM 0.0 - 0.5 06/24 [facility] /2016 [facility] HEMATOLOGY Lymphocytes 1.4 K/CMM 1.0 - 5.5 06/24 [facility] /2016 [facility] HEMATOLOGY Macrocyte 1+ None Seen 06/24 [facility] [address] [place], [place] [address]ABN* Center (06/24/17 3:36 AM) HEMATOLOGY Monocytes # 0.6 K/CMM 0.0 - 0.8 06/[address] HEMATOLOGY Segs-Bands # 3.7 K/CMM 1.5 - 8.1 06/24 [facility] HEMATOLOGY Basophils 0.5 % 0.0 - 1.0 06/24 [facility] HEMATOLOGY Eosinophils 3.1 % 0.0 - 4.0 06/24 [facility] HEMATOLOGY Monocytes 9.4 % 2.0 - 12.0 06/24 [facility] HEMATOLOGY Lymphocytes 24.2 % 20.0 - 06/24 [place] 40.0 [facility] HEMATOLOGY Segs 62.8 % 45.0 - 06/24 [place] 75.0 [facility] HEMATOLOGY MPV 6.3 fL 7.4 - 10.4 06/24 [facility] HEMATOLOGY RDW 14.3 % 11.5 - 06/24 [facility] 14.5 [facility] HEMATOLOGY Platelet 192 K/CMM 133 - 450 06/24 [facility] HEMATOLOGY MCHC 33.0 g/dL 32.0 - 06/24 36.0 [facility] HEMATOLOGY MCH 34.1 pg 27.0 - 06/24 31.0 [facility] HEMATOLOGY Hgb 13.3 g/dL 14.0 - 06/24 18.0 [facility] HEMATOLOGY Hct 40.4 % 42.0 - 06/24 54.0 [facility] HEMATOLOGY MCV 103.4 fL 80.0 - 06/24 [facility] 94.0 [facility] HEMATOLOGY WBC 5.9 K/CMM 3.7 - 10.4 06/24 [facility] HEMATOLOGY RBC 3.91 M/CMM 4.70 - 06/24 6.10 [facility] CHEM PANEL Lipase Lvl 291 unit/L 73 - 393 06/23 [facility] CHEM PANEL Alk Phos 73 unit/L 39 - 136 06/23 [facility] CHEM PANEL Bili Total 0.6 mg/dL 0.2 - 1.3 06/23 [facility] CHEM PANEL Total 7.6 g/dL 6.4 - 8.4 06/23 Protein [facility] CHEM PANEL Albumin Lvl 4.1 g/dL 3.5 - 5.0 06/23 [facility] CHEM PANEL ALT 33 unit/L 0 - 65 06/[address] CHEM PANEL AST 18 unit/L 0 - 37 06/[address] CHEM PANEL eGFR 108 06/23 Result Comment: The eGFR is calculated using the CKD-EPI formula. In most young, healthy individuals the eGFR will be >90 mL/ min/1.73m2. The eGFR declines with age. An eGFR of 60-89 may be normal in [facility] mL/min/1.7 /2016 some populations, particularly the elderly, for whom the CKD-EPI formula has not been extensively validated. Use of the eGFR is not recommended in the following populations: [address] Individuals with unstable creatinine concentrations, including patients and those with serious co-morbid conditions. Patients with extremes in muscle mass or diet. The data above are obtained from the National Kidney Disease Education Program (NKDEP) which additionally recommends that when the eGFR is used in patients with extremes of body mass index for purposes of drug dosing, the eGFR should be multiplied by the estimated BMI. CHEM PANEL Chloride Lvl 107 meq/L 95 - 109 06/[address] CHEM PANEL Calcium Lvl 9.1 mg/dL 8.5 - 10.5 06/[address] CHEM PANEL CO2 25 meq/L 24 - 32 06/[address] CHEM PANEL Potassium 4.0 meq/L 3.5 - 5.1 06/23 [facility] [address] [place] [address] CHEM PANEL Glucose Lvl 126 mg/dL 70 - 99 06/[address] CHEM PANEL BUN 10 mg/dL 7 - 22 06/[address] CHEM PANEL Creatinine 1.03 mg/dL 0.50 - 06/23 [facility] Lvl 1.40 [facility] CHEM PANEL Sodium Lvl 141 meq/L 135 - 145 06/[address] CHEM PANEL A/G Ratio 1.2 0.7 - 1.6 06/[address] CHEM PANEL Globulin 3.5 g/dL 2.7 - 4.2 06/[address] CHEM PANEL AGAP 13.0 meq/L 10.0 - 06/23 [place] 20.0 [facility] CHEM PANEL B/C Ratio 10 6 - 25 06/[address] HEMATOLOGY MCV 103.1 fL 80.0 - 06/23 [facility] 94.0 [facility] HEMATOLOGY MCH 34.3 pg 27.0 - 06/23 [facility] 31.0 [facility] HEMATOLOGY MCHC 33.3 g/dL 32.0 - 06/23 [facility] 36.0 [facility] HEMATOLOGY RDW 14.0 % 11.5 - 06/23 [facility] 14. [facility] HEMATOLOGY Platelet 207 K/CMM 133 - 450 06/23 [facility] HEMATOLOGY WBC 6.4 K/CMM 3.7 - 10.4 06/23 [facility] HEMATOLOGY MPV 6.5 fL 7.4 - 10.4 06/23 [facility] HEMATOLOGY RBC 4.13 M/CMM 4.70 - 06/23 [facility] 6.10 [facility] HEMATOLOGY Hgb 14.2 g/dL 14.0 - 06/23 [facility] 18.0 [facility] HEMATOLOGY Hct 42.6 % 42.0 - 06/23 [facility] 54.0 [facility] HEMATOLOGY Monocytes # 0.5 K/CMM 0.0 - 0.8 06/23 [facility] HEMATOLOGY Eosinophils 0.1 K/CMM 0.0 - 0.5 06/23 [facility] HEMATOLOGY Macrocyte 1+ None Seen 06/[address] [facility] (06/23/17 2:25 PM) HEMATOLOGY Lymphocytes 19.8 % 20.0 - 06/23 [facility] 40.0 [facility] HEMATOLOGY Segs 69.0 % 45.0 - 06/23 [facility] 75.0 [facility] HEMATOLOGY Monocytes 8.5 % 2.0 - 12.0 06/23 [facility] HEMATOLOGY Eosinophils 2.3 % 0.0 - 4.0 06/[address] [place] [address] HEMATOLOGY Segs-Bands # 4.4 K/CMM 1.5 - 8.1 06/23 [facility] [address] [place] [address] HEMATOLOGY Lymphocytes 1.3 K/CMM 1.0 - 5.5 06/23 [facility] HEMATOLOGY Basophils 0.4 % 0.0 - 1.0 06/[address] CHEM PANEL Lipase Lvl 504 unit/L 73 - 393 06/[address] CHEM PANEL Bili 0.7 mg/dL 0.0 - 1.0 06/18 [facility] CHEM PANEL AST 19 unit/L 0 - 37 06/18 [facility]2016 [facility] CHEM PANEL Bili Total 0.8 mg/dL 0.2 - 1.3 06/18 [facility] CHEM PANEL Bili Direct 0.1 mg/dL 0.0 - 0.3 06/[address] CHEM PANEL Globulin 3.5 g/dL 2.7 - 4.2 06/18 [facility]2016 [facility] CHEM PANEL A/G Ratio 1.2 0.7 - 1.6 06/[address] CHEM PANEL Alk Phos 74 unit/L 39 - 136 06/18 [facility]2016 [facility] CHEM PANEL Albumin Lvl 4.1 g/dL 3.5 - 5.0 06/18 [facility] CHEM PANEL ALT 33 unit/L 0 - 65 06/[address] CHEM PANEL Total 7.6 g/dL 6.4 - 8.4 06/18 [facility] Protein [facility] CHEM PANEL Lactic Acid 1.7 mMol/L 0.5 - 2.2 06/18 [facility] ELECTROLYT AGAP 12.4 meq/L 10.0 - 06/18 [facility] ES 20.0 [facility] ELECTROLYT eGFR 126 06/18 Result Comment: The eGFR is calculated using the CKD-EPI formula. In most young, healthy individuals the eGFR will be >90 mL/ min/1.73m2. The eGFR declines with age. An eGFR of 60-89 may be normal in [facility] ES mL/min/1.7 some populations, particularly the elderly, for whom the CKD-EPI formula has not been extensively validated. Use of the eGFR is not recommended in the following populations: [address] Individuals with unstable creatinine concentrations, including patients and those with serious co-morbid conditions. Patients with extremes in muscle mass or diet. The data above are obtained from the National Kidney Disease Education Program (NKDEP) which additionally recommends that when the eGFR is used in patients with extremes of body mass index for purposes of drug dosing, the eGFR should be multiplied by the estimated BMI. ELECTROLYT BUN 12 mg/dL 7 - 22 06/18 [facility] ES /2016 [facility] ELECTROLYT Glucose Lvl 108 mg/dL 70 - 99 06/18 [facility] ELECTROLYT Calcium Lvl 9.3 mg/dL 8.5 - 10.5 06/18 [facility] ELECTROLYT CO2 26 meq/L 24 - 32 06/18 [facility] ELECTROLYT Creatinine 0.91 mg/dL 0.50 - 06/18 [facility] ES Lvl 1.40 /2016 [facility] ELECTROLYT Chloride Lvl 106 meq/L 95 - 109 06/18 [facility] ELECTROLYT Sodium Lvl 140 meq/L 135 - 145 06/18 [facility] ELECTROLYT Potassium 4.4 meq/L 3.5 - 5.1 06/18 [facility] HEMATOLOGY Macrocyte 1+ None Seen 06/[address] [facility] (06/18/17 12:13 AM) HEMATOLOGY Monocytes # 0.2 K/CMM 0.0 - 0.8 06/18 [facility] HEMATOLOGY Lymphocytes 0.7 K/CMM 1.0 - 5.5 06/18 [facility] HEMATOLOGY Basophils 0.6 % 0.0 - 1.0 06/18 [facility] HEMATOLOGY Monocytes 2.1 % 2.0 - 12.0 06/18 [facility] HEMATOLOGY Lymphocytes 8.4 % 20.0 - 06/18 40.0 [facility] HEMATOLOGY Segs-Bands # 7.3 K/CMM 1.5 - 8.1 06/[address] [place] [address] HEMATOLOGY Eosinophils 0.5 % 0.0 - 4.0 06/18 [facility] HEMATOLOGY Segs 88.4 % 45.0 - 06/18 75.0 [facility] HEMATOLOGY MPV 6.3 fL 7.4 - 10.4 06/18 [facility] HEMATOLOGY WBC 8.2 K/CMM 3.7 - 10.4 06/18 [facility] HEMATOLOGY Hct 39.6 % 42.0 - 06/18 [facility] 54.0 [facility] HEMATOLOGY RBC 3.90 M/CMM 4.70 - 06/18 [place] 6.10 [facility] HEMATOLOGY Hgb 13.5 g/dL 14.0 - 06/18 18.0 [facility] HEMATOLOGY RDW 14.0 % 11.5 - 06/18 [facility] 14.5 [facility] HEMATOLOGY MCV 101.6 fL 80.0 - 06/18 [facility] 94.0 [facility] HEMATOLOGY MCH 34.7 pg 27.0 - 06/18 [facility] 31.0 [facility] HEMATOLOGY Platelet 188 K/CMM 133 - 450 06/18 [facility] HEMATOLOGY MCHC 34.1 g/dL 32.0 - 06/18 [facility] 36.0 [facility] ED ED EXAM: CT ABDOMEN AND PELVIS WITH CONTRAST 06/18 - [facility] Abdomen/Pe Abdomen/Pelv /2016 - [facility] lvis IV is IV This report was dictated by a Rn Peritoneal Dialysis/ Fellow. I have personally reviewed the images as Center contrast contrast well as the Resident's interpretation and agree with the findings. only CT only CT DATE: 06/17/2017 11:58 PM CDT Read by: Diego Bright MD Resident: Diego Bright MD Dictated Date/time: 06/18/17 02:25 Electronically Signed by: Darcy Rosenbaum MD 06/18/17 07:40 FINAL REPORT INDICATION: Acute abdominal pain, history of Crohn disease ADDITIONAL INFORMATION: None. COMPARISON: Abdomen pelvis CT 06/06/2017 TECHNIQUE: Volumetric CT acquisition of the abdomen and pelvis after the intravenous administration contrast. Axial, coronal and sagittal reconstructions. Postcontrast phases: Venous and delayed. IV contrast: 100 cc Omnipaque 350 Enteric contrast: None. DLP: 1107 mGy-cm FINDINGS: Lines, tubes and hardware: None. Lower thorax: Bibasilar atelectasis, left greater than right. Liver: Normal. Biliary tree: No intra- or extrahepatic biliary ductal dilation. Gallbladder: Normal. No CT evidence of gallstones. Pancreas: Normal. Spleen: Normal. Adrenals: Normal. Kidneys and ureters: Normal. Bladder: Normal. Reproductive organs: Unremarkable. Gastrointestinal tract: Stomach: Normal. Small bowel: Normal. No abnormal dilatation or inflammatory change. Colon: Status post ileocecectomy. No abnormal wall thickening or mucosal hyperemia noted. No dilated bowel loops. Appendix: Surgically absent. Peritoneum, mesentery and retroperitoneum: No free air, ascites or loculated fluid. Lymph nodes: Normal. Vasculature: Normal. Bones: No acute abnormality. Subacute right seventh rib fracture. Soft tissues: Unchanged supraumbilical and umbilical hernias containing noninflamed fat. No bowel herniation. IMPRESSION: No acute abnormality in the abdomen and pelvis. CHEM PANEL Lipase Lvl 192 unit/L 73 - 393 06/06 [place] CHEM PANEL Globulin 3.5 g/dL 2.7 - 4.2 06/06 [place] CHEM PANEL A/G Ratio 1.1 0.7 - 1.6 06/06 [place] CHEM PANEL AGAP 6.3 meq/L 10.0 - 06/06 [facility] 20.0 [place] CHEM PANEL B/C Ratio 14 6 - 25 06/06 [place] CHEM PANEL eGFR 135 06/06 Result Comment: The eGFR is calculated using the CKD-EPI formula. In most young, healthy individuals the eGFR will be >90 mL/ min/1.73m2. The eGFR declines with age. An eGFR of 60-89 may be normal in mL/min/1.7 some populations, particularly the elderly, for whom the CKD-EPI formula has not been extensively validated. Use of the eGFR is not recommended in the following populations: [address] Individuals with unstable creatinine concentrations, including patients and those with serious co-morbid conditions. Patients with extremes in muscle mass or diet. The data above are obtained from the National Kidney Disease Education Program (NKDEP) which additionally recommends that when the eGFR is used in patients with extremes of body mass index for purposes of drug dosing, the eGFR should be multiplied by the estimated BMI. CHEM PANEL BUN 11 mg/dL 7 - 22 06/06 [place] CHEM PANEL Alk Phos 71 unit/L 39 - 136 06/06 [place] [facility] CHEM PANEL Glucose Lvl 91 mg/dL 70 - 99 06/06 [place] CHEM PANEL ALANINE 21 unit/L 0 - 65 06/06 [facility] [place] [facility]ASE CHEM PANEL Albumin Lvl 3.7 g/dL 3.5 - 5.0 06/06 [place] CHEM PANEL Sodium Lvl 138 meq/L 135 - 145 06/06 [place] CHEM PANEL Potassium 4.3 meq/L 3.5 - 5.1 06/06 [facility] Lvl [place] CHEM PANEL Chloride Lvl 106 meq/L 95 - 109 06/06 [place] CHEM PANEL Creatinine 0.78 mg/dL 0.50 - 06/06 [facility] Lvl 1.40 /2016 [place] CHEM PANEL ASPARTATE 14 unit/L 0 - 37 06/06 [place] CHEM PANEL Calcium Lvl 8.9 mg/dL 8.5 - 10.5 06/06 [place] CHEM PANEL Bili Total 0.6 mg/dL 0.2 - 1.3 06/06 [place] CHEM PANEL CO2 30 meq/L 24 - 32 06/06 [place] CHEM PANEL Total 7.2 g/dL 6.4 - 8.4 06/06 [place] HEMATOLOGY Eosinophils 0.1 K/CMM 0.0 - 0.5 06/06 [place] HEMATOLOGY Monocytes # 0.5 K/CMM 0.0 - 0.8 06/06 [place] HEMATOLOGY Basophils 0.7 % 0.0 - 1.0 06/06 [place] HEMATOLOGY Eosinophils 2.0 % 0.0 - 4.0 06/06 [place] HEMATOLOGY Lymphocytes 1.6 K/CMM 1.0 - 5.5 06/06 [place] HEMATOLOGY Segs 66.6 % 45.0 - 06/06 [facility] 75.0 [place] HEMATOLOGY Lymphocytes 23.0 % 20.0 - 06/06 [facility] 40.0 [place] HEMATOLOGY Segs-Bands # 4.7 K/CMM 1.5 - 8.1 06/06 [place] HEMATOLOGY Monocytes 7.7 % 2.0 - 12.0 06/06 [place] HEMATOLOGY Platelet 212 K/CMM 133 - 450 06/06 [place] HEMATOLOGY MPV 6.2 fL 7.4 - 10.4 06/06 [place] HEMATOLOGY MCHC 34.8 g/dL 32.0 - 06/06 [facility] 36.0 [place] HEMATOLOGY MCV 102.0 fL 80.0 - 06/06 [facility] 94.0 [place] HEMATOLOGY MCH 35.5 pg 27.0 - 06/06 [facility] 31.0 [place] HEMATOLOGY RDW 13.1 % 11.5 - 06/06 [facility] 14. [place] HEMATOLOGY Hgb 14.1 g/dL 14.0 - 06/06 [facility] 18.0 [place] HEMATOLOGY Hct 40.5 % 42.0 - 06/06 [facility] 54.0 [place] HEMATOLOGY WBC X 10x3 7.0 K/CMM 3.7 - 10.4 06/06 [place] HEMATOLOGY RBC X 10x6 3.97 M/CMM 4.70 - 06/06 [facility] 6.10 /2016 [place] URINE AND UA Leuk Est Negative Negative 06/06 [facility] [place] (06/06/17 1:55 PM) URINE AND UA Glucose Negative Negative 06/06 [facility] mg/dL mg/dL [place] URINE AND UA Protein Negative Negative 06/06 [facility] mg/dL mg/dL [place] URINE AND UA Ketones Negative Negative 06/06 [facility] mg/dL mg/dL [place] URINE AND UA 0.2 EU/dL 0.1 - 1.0 06/06 [facility] Urobilinogen [place] URINE AND UA Nitrite Negative Negative 06/06 [facility] [place] (06/06/17 1:55 PM) URINE AND UA Bili Negative Negative 06/06 [place] *NA* (06/06/17 1:55 PM) URINE AND UA Blood Negative Negative 06/06 [facility] [place] (06/06/17 1:55 PM) URINE AND UA pH 7.0 5.0 - 8.0 06/06 [place] URINE AND UA Spec Grav 1.020 <=1.030 06/06 [place] URINE AND UA Color Yellow Yellow 06/06 [facility] [place] *NA* (06/06/17 1:55 PM) URINE AND UA Turbidity Clear Clear 06/06 [facility] [place] (06/06/17 1:55 PM) URINE AND UA RBC 0-2 /HPF 0 - 2 06/06 [place] URINE AND UA Bacteria None Seen None Seen 06/06 [facility] [place] (06/06/17 1:55 PM) URINE AND UA Sq Epi None Seen Few 06/06 [place] (06/06/17 1:55 PM) URINE AND UA WBC None Seen None Seen 06/06 [place] (06/06/17 1:55 PM) ED ED Patient Name: KANCHAN BASILIO PRATT 06/06 - [facility]dom[facility]/Pe Abdomen/Pelv /2016 - [place] lvis IV is IV : 1980; Age: 37 years y/o Male contrast contrast only CT only CT MR: [id number] Read by: Joe Mccray MD Dictated Date/time: 06/06/17 16:41 Electronically Signed by: Joe Mccray MD 06/06/17 16:52 FINAL REPORT * I. COMPUTED TOMOGRAPHY SCAN OF THE ABDOMEN with contrast. * II. COMPUTED TOMOGRAPHY SCAN OF THE PELVIS with contrast HISTORY: Generalized nonspecific abdominal pain. History of Crohn's disease. COMPARISON: 06/04/2017 (2 days ago). TECHNIQUE: I. COMPUTED TOMOGRAPHY SCAN OF THE ABDOMEN with contrast: Helical CT images were obtained on a multidetector computed tomography scanner from the domes the diaphragms to the iliac crests following the intravenous administration of nonionic iodinated contrast. Oral contrast was not provided. II. COMPUTED TOMOGRAPHY SCAN OF THE PELVIS with contrast: Helical CT images were obtained on a multidetector computed tomography scanner from the iliac crests to the pubic symphysis following the intravenous administration of nonionic iodinated contrast. Oral contrast was not provided. Coronal and sagittal reconstructions were obtained. CT radiation dose DLP: 1516 mGy -- cm FINDINGS: There is no evidence of an acute intra-abdominal process. There is no free intraperitoneal gas, significant intra-abdominal fluid, or hemorrhage. There are postoperative changes following right hemicolectomy. There is anastomosis between the small bowel and right side of the transverse colon. The proximal colon is patulous, unchanged from the dewayne or study. This is felt to be related to postoperative change. There is no evidence of bowel obstruction or ileus. No focal bowel wall thickening is identified to suggest active Crohn's disease. Evaluation of the gastrointestinal structures is limited due to lack of oral contrast. There is a moderate-sized upper midline abdominal ventral hernia best seen on images 41 through 43 of series 5. The abdominal wall defect measures 1.9 cm. The hernia sac measures approximately 4.0 x 2.4 cm. There is also a very small umbilical hernia. There is no herniation of bowel. The liver, spleen, pancreas, and adrenal glands are normal in appearance. The kidneys are normal in size and show good, symmetrical excretion without hydronephrosis. No focal lesions are visualized. No mass or adenopathy is seen within the abdomen or pelvis. The aorta is normal in caliber. There are minimal atherosclerotic calcifications. The visualized lung bases are clear. There are no pleural effusions. The heart is normal in size. There is no pericardial effusion. There is a fracture of the right 7th rib laterally without evidence of callus formation consistent with a recent fracture. Please correlate with clinical information and clinical examination. The osseous structures are otherwise unremarkable. Is no evidence of sacroiliitis. There is a small sclerotic lesion involving the left sacrum, probable bone island. There is a small nonaggressive. Cys tic lesion with sclerotic margins involving the left ilium. There are no suspicious blastic or destructive lesions. IMPRESSION: 1. No evidence of an acute intra-abdominal process. Specifically, no focal bowel wall thickening or other suspicious findings of acute Crohn's disease is identified. 2. Status post right colectomy. The proximal right transverse colon is patulous, probably related to postoperative changes. There is no evidence of obstruction. 3. There are ventral and umbilical hernias. There is no herniation of bowel. 4. There is a fracture of the right 7th rib laterally of indeterminate age. However, there is no callus formation the fracture appears to be recent. Please correlate with clinical information and clinical examination. SL: [id number] Chest 2 Chest 2 Clinical History : , - Rib pain 06/05 - views DX views DX /2016 [facility] Exam : PA and lateral views of the chest 06/05/2017 4:20 AM CDT Read by: Shanell Roman MD Dictated Date/time: 06/05/17 04:48 Electronically Signed by: Shanell Roman MD 06/05/17 04:49 FINAL REPORT Comparisons : none Findings : There are no displaced rib fractures or evidence of pneumothorax. The lungs are clear without focal consolidation or pleural effusion. The heart is normal in size. The mediastinal contours are normal in appearance. The thoracic spine is age appropriate. The shoulders are unremarkable. Limited evaluation of the upper abdomen demonstrates no gross abnormalities. Impression: No acute cardiopulmonary disease CHEM PANEL Globulin 3.4 g/dL 2.7 - 4.2 06/04 [facility] CHEM PANEL A/G Ratio 1.1 0.7 - 1.6 06/04 [facility] CHEM PANEL AGAP 12.4 meq/L 10.0 - 06/04 20.0 [place] CHEM PANEL B/C Ratio 8 6 - 25 06/04 [facility] CHEM PANEL Alk Phos 64 unit/L 39 - 136 06/04 [facility] CHEM PANEL Total 7.0 g/dL 6.4 - 8.4 06/04 Protein [facility] CHEM PANEL Bili Total 0.5 mg/dL 0.2 - 1.3 06/04 [facility] CHEM PANEL BUN 7 mg/dL 7 - 22 06/04 [facility] CHEM PANEL Glucose Lvl 87 mg/dL 70 - 99 06/04 [facility] CHEM PANEL CO2 26 meq/L 24 - 32 06/04 [facility] CHEM PANEL Albumin Lvl 3.6 g/dL 3.5 - 5.0 06/04 [facility] CHEM PANEL Calcium Lvl 8.4 mg/dL 8.5 - 10.5 06/04 [facility] CHEM PANEL Sodium Lvl 140 meq/L 135 - 145 06/04 [facility] CHEM PANEL Potassium 3.4 meq/L 3.5 - 5.1 06/04 [facility] CHEM PANEL Chloride Lvl 105 meq/L 95 - 109 06/04 [facility] CHEM PANEL eGFR 130 06/04 Result Comment: The eGFR is calculated using the CKD-EPI formula. In most young, healthy individuals the eGFR will be >90 mL/ min/1.73m2. The eGFR declines with age. An eGFR of 60-89 may be normal in mL/min/1.7 some populations, particularly the elderly, for whom the CKD-EPI formula has not been extensively validated. Use of the eGFR is not recommended in the following populations: [place] [address] Individuals with unstable creatinine concentrations, including patients and those with serious co-morbid conditions. Patients with extremes in muscle mass or diet. The data above are obtained from the National Kidney Disease Education Program (NKDEP) which additionally recommends that when the eGFR is used in patients with extremes of body mass index for purposes of drug dosing, the eGFR should be multiplied by the estimated BMI. CHEM PANEL ALT 23 unit/L 0 - 65 06/04 [facility] CHEM PANEL Creatinine 0.86 mg/dL 0.50 - 06/04 Lvl 1.40 [place] CHEM PANEL AST 8 unit/L 0 - 37 06/04 [facility] CHEM PANEL Lipase Lvl 188 unit/L 73 - 393 06/04 [facility] HEMATOLOGY Eosinophils 3.4 % 0.0 - 4.0 06/04 [facility] HEMATOLOGY Basophils 0.7 % 0.0 - 1.0 06/04 [facility] HEMATOLOGY Monocytes 7.5 % 2.0 - 12.0 06/04 [facility] HEMATOLOGY Lymphocytes 1.5 K/CMM 1.0 - 5.5 06/04 /2016 [facility] HEMATOLOGY Monocytes # 0.4 K/CMM 0.0 - 0.8 06/04 [facility] HEMATOLOGY Segs-Bands # 3.0 K/CMM 1.5 - 8.1 06/04 [facility] HEMATOLOGY Eosinophils 0.2 K/CMM 0.0 - 0.5 06/04 [facility] HEMATOLOGY Basophils # 0.0 K/CMM 0.0 - 0.2 06/04 [facility] HEMATOLOGY Segs 58.6 % 45.0 - 06/04 [facility] 75.0 [facility] HEMATOLOGY Lymphocytes 29.8 % 20.0 - 06/04 40.0 [facility] HEMATOLOGY Platelet 210 K/CMM 133 - 450 06/04 [facility] HEMATOLOGY RDW 13.5 % 11.5 - 06/04 [facility] 14.5 [facility] HEMATOLOGY MPV 6.2 fL 7.4 - 10.4 06/04 [facility] HEMATOLOGY RBC 3.71 M/CMM 4.70 - 06/04 [facility] 6.10 [facility] HEMATOLOGY WBC 5.2 K/CMM 3.7 - 10.4 06/04 [facility] HEMATOLOGY Hgb 12.8 g/dL 14.0 - 06/04 [facility] 18.0 [facility] HEMATOLOGY Hct 38.4 % 42.0 - 06/04 [facility] 54.0 [facility] HEMATOLOGY MCH 34.4 pg 27.0 - 06/04 31.0 [facility] HEMATOLOGY MCHC 33.2 g/dL 32.0 - 06/04 36.0 [facility] HEMATOLOGY MCV 103.7 fL 80.0 - 06/04 94.0 [facility] URINE AND UA WBC null 0 - 5 06/04 [facility] /2017 [facility] URINE AND UA Mucus Few /LPF None Seen 06/04 [facility] /LPF /2016 [facility] URINE AND UA Leuk Est Negative Negative 06/04 [facility] /2017 [facility] (06/04/17 8:57 AM) URINE AND UA Sq Epi Occasional Few /LPF 06/04 [facility] /LPF /2016 [facility] URINE AND UA RBC 1 /HPF 0 - 2 06/04 [facility] URINE AND UA <=1.0 0.1 - 1.0 06/04 [facility] Urobilinogen mg/dL [facility] URINE AND UA Color Yellow 06/04 [facility] URINE AND UA Protein Negative Negative 06/04 [facility] mg/dL mg/dL [facility] URINE AND UA pH 6.0 5.0 - 8.0 06/04 [facility] URINE AND UA Turbidity Clear Clear 06/04 [facility] (06/04/17 8:57 AM) URINE AND UA Spec Grav 1.029 <=1.030 06/04 [facility] URINE AND UA Bili Negative Negative 06/04 [facility] *NA* (06/04/17 8:57 AM) URINE AND UA Blood Negative Negative 06/04 [facility] (06/04/17 8:57 AM) URINE AND UA Nitrite Negative Negative 06/04 [facility] (06/04/17 8:57 AM) URINE AND UA Glucose Negative Negative 06/04 [facility] mg/dL mg/dL [facility] URINE AND UA Ketones Negative Negative 06/04 [facility] mg/dL mg/dL [facility] ED ED Patient Name: KANCHAN PRATT 06/04 - Abdomen/Pe Abdomen/Pelv /2016 - [facility] lvis IV is IV : 1980; Age: 37 years y/o Male contrast contrast only CT only CT MR: [id number] Read by: Miguel Carey MD Dictated Date/time: 06/04/17 12:23 Electronically Signed by: Miguel Carey MD 06/04/17 12:29 FINAL REPORT Study: ED Abdomen/Pelvis IV contrast only CT 06/04/2017 8:39 AM CDT Ordering Physician: Floresita Maldonado DO Clinical Indication: - LLQ PAIN x 3 DAYS/DLP 1146 mGycm/ 85 ML OMNI 300; Comparison: None TECHNIQUE: Helical imaging was performed from the diaphragm through the symphysis with multiplanar reformations obtained after intravenous administration of 100 mL of Omnipaque. FINDINGS: LOWER CHEST: The lung bases are clear without significant pleural effusion bilaterally. SOLID ORGANS: No focal liver or splenic abnormality. Kidneys are unremarkable bilaterally. No pelvocaliectasis or ureterectasis bilaterally. The adrenals, pancreas and gallbladder are unremarkable. RETROPERITONEUM: No abdominal or pelvic adenopathy. The abdominal aorta is unremarkable. PELVIS: No pelvic mass. Bladder is unremarkable. BOWEL: No acute findings. Previous right hemicolectomy. No evidence for colitis or diverticulitis within the visualized remaining colon. No bowel obstruction or pathologic distention otherwise. PERITONEUM: No free intraperitoneal air. No abnormal fluid collection identified in the abdomen or pelvis. MUSCULOSKELETAL: No significant osseous abnormality. 3 cm supraumbilical ventral hernia containing fat, no included bowel or fluid. IMPRESSION: Previous right hemicolectomy. No acute findings. SL: [id number] Vital Signs Vital Sign Value Date Comments Source Systolic (mm Hg) 132 07/12/2017 [facility] Diastolic (mm Hg) 86 07/12/2017 [facility] Heart Rate 87 07/12/2017 [facility] Respitory Rate 18 07/12/2017 [facility] Height 175.26 cm 07/11/2017 [facility] Weight 93.182 07/11/2017 [facility] BMI Calculated 30.34 07/11/2017 [facility] Temperature Oral (F) 98.6 F 07/11/2017 [facility] Systolic (mm Hg) 139 07/11/2017 [facility] Diastolic (mm Hg) 90 07/11/2017 [facility] Respitory Rate 18 07/11/2017 [facility] Heart Rate 95 07/11/2017 [facility] Systolic (mm Hg) 142 06/24/2017 [facility] Diastolic (mm Hg) 85 06/24/2017 [facility] Temperature Oral (F) 98 F 06/24/2017 [facility] Respitory Rate 18 06/24/2017 [facility] Respitory Rate 18 06/24/2017 [facility] Systolic (mm Hg) 128 06/24/2017 [facility] Diastolic (mm Hg) 73 06/24/2017 [facility] Respitory Rate 18 06/24/2017 [facility] Systolic (mm Hg) 164 06/24/2017 [facility] Diastolic (mm Hg) 89 06/24/2017 [facility] Height 175.26 cm 06/24/2017 [facility] Weight 93.182 06/24/2017 [facility] BMI Calculated 30.34 06/24/2017 [facility] Heart Rate 91 06/24/2017 [facility] Temperature Oral (F) 98.3 F 06/24/2017 [facility] Height 175.26 cm 06/23/2017 [facility] Respitory Rate 18 06/23/2017 [facility] Temperature Oral (F) 98.1 F 06/23/2017 [facility] Heart Rate 107 06/23/2017 [facility] Systolic (mm Hg) 137 06/23/2017 [facility] Diastolic (mm Hg) 96 06/23/2017 [facility] Weight 93.182 06/23/2017 [facility] BMI Calculated 30.34 06/23/2017 [facility] Systolic (mm Hg) 146 06/18/2017 [facility] Diastolic (mm Hg) 85 06/18/2017 [facility] Temperature Oral (F) 97.9 F 06/18/2017 [facility] Respitory Rate 16 06/18/2017 [facility] Heart Rate 90 06/18/2017 [facility] Respitory Rate 17 06/18/2017 [facility] Heart Rate 87 06/18/2017 [facility] Systolic (mm Hg) 133 06/18/2017 [facility] Diastolic (mm Hg) 68 06/18/2017 [facility] Systolic (mm Hg) 139 06/18/2017 [facility] Diastolic (mm Hg) 90 06/18/2017 [facility] Heart Rate 82 06/18/2017 [facility] Respitory Rate 16 06/18/2017 [facility] Temperature Oral (F) 98.6 F 06/18/2017 [facility] Weight 93.182 06/18/2017 [facility] BMI Calculated 30.34 06/18/2017 [facility] Temperature Oral (F) 98.2 F 06/18/2017 [facility] Height 175.26 cm 06/18/2017 [facility] Systolic (mm Hg) 128 06/06/2017 [facility] Diastolic (mm Hg) 79 06/06/2017 [facility] Heart Rate 70 06/06/2017 [facility] Respitory Rate 16 06/06/2017 [facility] Heart Rate 77 06/06/2017 [facility] Respitory Rate 16 06/06/2017 [facility] Systolic (mm Hg) 133 06/06/2017 [facility] Diastolic (mm Hg) 86 06/06/2017 [facility] Systolic (mm Hg) 119 06/06/2017 [facility] Diastolic (mm Hg) 91 06/06/2017 [facility] Heart Rate 70 06/06/2017 [facility] Respitory Rate 16 06/06/2017 [facility] Weight 100 06/06/2017 [facility] BMI Calculated 33.52 06/06/2017 [facility] Height 172.72 cm 06/06/2017 [facility] Temperature Oral (F) 98.0 F 06/06/2017 [facility] Systolic (mm Hg) 145 06/05/2017 [facility] Diastolic (mm Hg) 82 06/05/2017 [facility] Heart Rate 87 06/05/2017 [facility] Temperature Oral (F) 98.1 F 06/05/2017 [facility] Respitory Rate 18 06/05/2017 [facility] Weight 93.182 06/05/2017 [facility] Temperature Oral (F) 97 F 06/05/2017 [facility] Systolic (mm Hg) 139 06/05/2017 [facility] Diastolic (mm Hg) 89 06/05/2017 [facility] Heart Rate 84 06/05/2017 [facility] Respitory Rate 18 06/05/2017 [facility] Systolic (mm Hg) 147 06/04/2017 [facility] Diastolic (mm Hg) 68 06/04/2017 [facility] Heart Rate 74 06/04/2017 [facility] Respitory Rate 16 06/04/2017 [facility] Temperature Oral (F) 98.1 F 06/04/2017 [facility] Respitory Rate 16 06/04/2017 [facility] Systolic (mm Hg) 164 06/04/2017 [facility] Diastolic (mm Hg) 78 06/04/2017 [facility] Heart Rate 70 06/04/2017 [facility] Temperature Oral (F) 98.2 F 06/04/2017 [facility] Height 170.18 cm 06/04/2017 [facility] BMI Calculated 27.47 06/04/2017 [facility] Weight 79.545 06/04/2017 [facility] Respitory Rate 18 06/04/2017 [facility] Temperature Oral (F) 97.6 F 06/04/2017 [facility] Heart Rate 80 06/04/2017 [facility] Systolic (mm Hg) 157 06/04/2017 [facility] Diastolic (mm Hg) 97 06/04/2017 [facility] Encounters Location Location Encounter Encounter Reason Attending ADM DC Status Source Details Type Number For Provider Date Date Visit [facility] [id number] Floresita 06/04 06/04 Reynaldo Maldonado /2016 [facility] [id number] Deangelo 06/05 06/05 Reynaldo Ray /2016 [facility] [id number] Chava 06/06 06/06 [facility] [id number] Jose Alberto 06/18 06/18 [facility] Reynaldo Beto /2016 [facility] [id number] Amie 06/23 06/24 [facility] Reynaldo Cordova /2016 [facility] [id number] Melani 06/24 06/24 [facility] Reynaldo Hodge /2016 [facility] [id number] Booker 07/11 07/12 [facility] Reynaldo Luciano /2016 [facility] Procedures Procedure Code Date Perfomer Comments Source Colon operation [id number] [facility] Operation on [id number] [facility] [id number] surgery of the [facility] inpatient care intestine due [facility] management<sup>1 to Chrons </sup> disease Colon operation [id number] [facility] Operation on [id number] [facility] Surgery [id number] surgery of the [facility] inpatient care intestine due [facility] management<sup>1 to Chrons </sup> disease Colon operation [id number] [facility] Operation on [id number] [facility] shoulder joint Surgery [id number] surgery of the [facility] inpatient care intestine due management<sup>1 to Chrons </sup> disease Colon operation [id number] [facility] Operation on [id number] [facility] shoulder joint Surgery [id number] surgery of the [facility] inpatient care intestine due management<sup>1 to Chrons </sup> disease
--- OUTSIDE RECORDS SUMMARY | 2018-05-09 18:19 | XMS REPORT | Summary of Care ---
:[address] [facility] Address [address] [place] [address]- Encounter HQ Rod(CINDY) [id number] Date(s): 06/05/17 - 06/05/[address] [address]- Discharge Diagnosis: Accidental fall Discharge Diagnosis: Rib pain Discharge Disposition: Home or Self Care Attending Physician: Deangelo Ray MD Vital Signs Most recent to oldest [Reference Range]: 1 2 Temperature Oral [96.4-99.1 DegF] 98.1 DegF 97 DegF (06/05/17 6:09 AM) (06/05/17 3:17 AM) Blood Pressure [90-140/60-90 mmHg] 145/82 mmHg 139/89 mmHg *HI* (06/05/17 3:17 AM) (06/05/17 6:09 AM) Respiratory Rate [14-20 BRMIN] 18 BRMIN 18 BRMIN (06/05/17 6:09 AM) (06/05/17 3:17 AM) Peripheral Pulse Rate [60-100 bpm] 87 bpm 84 bpm (06/05/17 6:09 AM) (06/05/17 3:17 AM) Weight 93.182 kg (06/05/17 3:17 AM) Problem List Condition Effective Dates Status Health Status Informant Crohn disease(Confirmed) Resolved Allergies, Adverse Reactions, Alerts Substance Reaction Severity Status NKDA Active Toradol Active Medications acetaminophen-hydrocodone 325 mg-5 mg oral tablet 1 tab, Route: PO, Drug Form: TAB, Dosing Weight 93.182, kg, ONCE, STAT, Start date: 06/05/17 4:20:00CDT, Stop date: 06/05/17 4:20:00 CDT Start Date: 06/05/17 Stop Date: 06/05/17 Status: Discontinuedalbuterol-ipratropium 2.5-0.5 mg inhalation solution 3 mL, Route: NEB, Drug Form: SOLN, Dosing Weight 93.182, kg, QID, STAT, Start date: 06/05/17 4:29:00CDT, Duration: 30 day, Stop date: 07/04/17 21:00:00 CDT Notes: (Same as: Duoneb) Start Date: 06/05/17 Stop Date: 06/05/17 Status: Discontinuedmorphine Sulfate 6 mg, 0.6 mL, Route: IM, Drug form: INJ, ONCE, Dosing Weight 93.182, kg, Priority: STAT, Start date:06/05/17 4:29:00 CDT, Stop date: 06/05/17 4:29:00 CDT Notes: (Same as:MORPhine Sulfate) Start Date: 06/05/17 Stop Date: 06/05/17 Status: CompletedTylenol with Codeine #3 oral tablet 1 - 2 tab, PO, Q4H, PRN Pain, X 4 day, # 36 tab, 0 Refill(s) Start Date: 06/05/17 Stop Date: 06/09/17 Status: OrderedUltram 50 mg oral tablet 1 - 2 tabs, PO, Q4-6H, PRN Pain Score 7-10, X 4 day, # 30 tab, 0 Refill(s) Start Date: 06/05/17 Stop Date: 06/09/17 Status: Ordered Results No data available for this section Immunizations No data available for this section Procedures Procedure Date Related Diagnosis Body Site Colon operation Operation on shoulder joint Surgery inpatient care management1 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
--- OUTSIDE RECORDS SUMMARY | 2018-05-09 18:20 | XMS REPORT | Summary of Care ---
:1980 Author Organization [facility] Address [address] [place] [address]- Encounter HQ Rod(CINDY) [id number] Date(s): 06/04/17 - 06/04/[address] [address]- Discharge Diagnosis: Abdominal pain, acute, generalized Discharge Diagnosis: Diarrhea Discharge Diagnosis: Nausea & vomiting Discharge Disposition: Home or Self Care Attending Physician: Floresita Maldonado DO Vital Signs Most recent to oldest 1 2 3 [Reference Range]: Height 170.18 cm (06/04/17 8:26 AM) Temperature Oral [96.4-99.1 98.1 DegF 98.2 DegF 97.6 DegF DegF] (06/04/17 1:25 PM) (06/04/17 12:00 PM) (06/04/17 8:26 AM) Blood Pressure [90-140/60-90 147/68 mmHg 164/78 mmHg 157/97 mmHg mmHg] *HI* *HI* *HI* (06/04/17 1:25 PM) (06/04/17 12:00 PM) (06/04/17 8:26 AM) Respiratory Rate [14-20 BRMIN] 16 BRMIN 16 BRMIN 18 BRMIN (06/04/17 1:25 PM) (06/04/17 12:00 PM) (06/04/17 8:26 AM) Peripheral Pulse Rate [60-100 74 bpm 70 bpm 80 bpm bpm] (06/04/17 1:25 PM) (06/04/17 12:00 PM) (06/04/17 8:26 AM) Weight 79.545 kg (06/04/17 8:26 AM) Body Mass Index 27.47 m2 (06/04/17 8:26 AM) Problem List Condition Effective Dates Status Health Status Informant Crohn disease(Confirmed) Resolved Allergies, Adverse Reactions, Alerts Substance Reaction Severity Status NKDA Active Toradol Active Medications acetaminophen-hydrocodone 325 mg-5 mg oral tablet 1 tab, Route: PO, Drug Form: TAB, Dosing Weight 79.545, kg, ONCE, STAT, Start date: 06/04/17 13:17:00 CDT, Stop date: 06/04/17 13:17:00 CDT Start Date: 06/04/17 Stop Date: 06/04/17 Status: Completedmorphine Sulfate 2 mg, Route: IVP, ONCE, Dosing Weight 79.545, kg, Priority: STAT, Start date: 10:31:00 CDT,Stop date: 06/04/17 10:31:00 CDT Start Date: 06/04/17 Stop Date: 06/04/17 Status: Completedmorphine Sulfate 4 mg, 1 mL, Route: IVP, Drug form: SOLN, ONCE, Dosing Weight 79.545, kg, Priority: STAT, Start date:06/04/17 8:39:00 CDT, Stop date: 06/04/17 8:39:00 CDT Notes: (Same as:MORPhine Sulfate) Start Date: 06/04/17 Stop Date: 06/04/17 Status: CompletedOmnipaque 300 injectable solution 85 mL, Route: IVP, Drug Form: SOLN, Dosing Weight 79.545, kg, ONCALL, GFR > 45 mL/min, STAT, Start date: 06/04/17 9:19:00 CDT, Duration: 1 doses or times Notes: (Same as:Omnipaque 300).WASTE: F/P - Black; E - Municipal Trash Bin Start Date: 06/04/17 Stop Date: 06/04/17 Status: Completedondansetron 4 mg, 2 mL, Route: IVP, Drug form: INJ, ONCE, Dosing Weight 79.545, kg, Priority : STAT, Start date: 06/04/17 8:39:00 CDT, Stop date: 06/04/17 8:39:00 CDT Notes: (Same as: Ever) MEDICATION WASTE Product Size: 4 mgProduct Wasted: ___ mg Start Date: 06/04/17 Stop Date: 06/04/17 Status: CompletedTylenol with Codeine #3 oral tablet 1 tab, PO, Q6H, PRN Pain, X 7 day, # 28 tab, 0 Refill(s) Start Date: 06/04/17 Stop Date: 06/11/17 Status: OrderedZofran 4 mg oral tablet 4 mg=1 tab, PO, BID, # 10 tab, 0 Refill(s) Start Date: 06/04/17 Stop Date: 06/09/17 Status: Ordered Results ELECTROLYTES Most recent to oldest [Reference Range]: 1 Sodium Lvl [135-145 mEq/L] 140 mEq/L (06/04/17 8:57 AM) Potassium Lvl [3.5-5.1 mEq/L] 3.4 mEq/L *LOW* (06/04/17 8:57 AM) Chloride Lvl [95-109 mEq/L] 105 mEq/L (06/04/17 8:57 AM) CO2 [24-32 mEq/L] 26 mEq/L (06/04/17 8:57 AM) AGAP [10.0-20.0 mEq/L] 12.4 mEq/L (06/04/17 8:57 AM) CHEM PANEL Most recent to oldest [Reference Range]: 1 Creatinine Lvl [0.50-1.40 mg/dL] 0.86 mg/dL (06/04/17 8:57 AM) eGFR 130 mL/min/1.73m2 1 *NA* (06/04/17 8:57 AM) BUN [7-22 mg/dL] 7 mg/dL (06/04/17 8:57 AM) B/C Ratio [6-25] 8 (06/04/17 8:57 AM) Glucose Lvl [70-99 mg/dL] 87 mg/dL (06/04/17 8:57 AM) Total Protein [6.4-8.4 g/dL] 7.0 g/dL (06/04/17 8:57 AM) Albumin Lvl [3.5-5.0 g/dL] 3.6 g/dL (06/04/17 8:57 AM) Globulin [2.7-4.2 g/dL] 3.4 g/dL (06/04/17 8:57 AM) A/G Ratio [0.7-1.6] 1.1 (06/04/17 8:57 AM) Calcium Lvl [8.5-10.5 mg/dL] 8.4 mg/dL *LOW* (06/04/17 8:57 AM) ALT [0-65 unit/L] 23 unit/L (06/04/17 8:57 AM) AST [0-37 unit/L] 8 unit/L (06/04/17 8:57 AM) Alk Phos [39-136 unit/L] 64 unit/L (06/04/17 8:57 AM) Bili Total [0.2-1.3 mg/dL] 0.5 mg/dL (06/04/17 8:57 AM) Lipase Lvl [73-393 unit/L] 188 unit/L (06/04/17 8:57 AM) 1Result Comment: The eGFR is calculated using the CKD-EPI formula. In most young , healthy individualsthe eGFR will be >90 mL/min/1.73m2. The eGFR declines with age. An eGFR of 60-89 may be normal in some populations, particularly the elderly, for whom the CKD-EPI formula has not been extensively validated. Use of the eGFR is not recommended in the following populations: Individuals with unstable creatinine concentrations, including patients and those with serious co-morbid conditions. Patients with extremes in muscle mass or diet. The data above are obtained from the National Kidney Disease Education Program ( NKDEP) which additionally recommends that when the eGFR is used in patients with extremes of body mass index for purposesof drug dosing, the eGFR should be multiplied by the estimated BMI.URINE AND STOOL Most recent to oldest [Reference Range]: 1 UA Turbidity [Clear] Clear (06/04/17 8:57 AM) UA Color Yellow *NA* (06/04/17 8:57 AM) UA pH [5.0-8.0] 6.0 (06/04/17 8:57 AM) UA Spec Grav [<=1.030] 1.029 (06/04/17 8:57 AM) UA Glucose [Negative mg/dL] Negative mg/dL *NA* (06/04/17 8:57 AM) UA Blood [Negative] Negative (06/04/17 8:57 AM) UA Ketones [Negative mg/dL] Negative mg/dL *NA* (06/04/17 8:57 AM) UA Protein [Negative mg/dL] Negative mg/dL (06/04/17 8:57 AM) UA Urobilinogen [0.1-1.0 mg/dL] <=1.0 mg/dL *NA* (06/04/17 8:57 AM) UA Bili [Negative] Negative *NA* (06/04/17 8:57 AM) UA Leuk Est [Negative] Negative (06/04/17 8:57 AM) UA Nitrite [Negative] Negative (06/04/17 8:57 AM) UA WBC [0-5 /HPF] <1 /HPF (06/04/17 8:57 AM) UA RBC [0-2 /HPF] 1 /HPF (06/04/17 8:57 AM) UA Sq Epi [Few /LPF] Occasional /LPF *NA* (06/04/17 8:57 AM) UA Mucus [None Seen /LPF] Few /LPF *NA* (06/04/17 8:57 AM) HEMATOLOGY Most recent to oldest [Reference Range]: 1 WBC [3.7-10.4 K/CMM] 5.2 K/CMM (06/04/17 8:57 AM) RBC [4.70-6.10 M/CMM] 3.71 M/CMM *LOW* (06/04/17 8:57 AM) Hgb [14.0-18.0 g/dL] 12.8 g/dL *LOW* (06/04/17 8:57 AM) Hct [42.0-54.0 %] 38.4 % *LOW* (06/04/17 8:57 AM) MCV [80.0-94.0 fL] 103.7 fL *HI* (06/04/17 8:57 AM) MCH [27.0-31.0 pg] 34.4 pg *HI* (06/04/17 8:57 AM) MCHC [32.0-36.0 g/dL] 33.2 g/dL (06/04/17 8:57 AM) RDW [11.5-14.5 %] 13.5 % (06/04/17 8:57 AM) Platelet [133-450 K/CMM] 210 K/CMM (06/04/17 8:57 AM) MPV [7.4-10.4 fL] 6.2 fL *LOW* (06/04/17 8:57 AM) Segs [45.0-75.0 %] 58.6 % (06/04/17 8:57 AM) Lymphocytes [20.0-40.0 %] 29.8 % (06/04/17 8:57 AM) Monocytes [2.0-12.0 %] 7.5 % (06/04/17 8:57 AM) Eosinophils [0.0-4.0 %] 3.4 % (06/04/17 8:57 AM) Basophils [0.0-1.0 %] 0.7 % (06/04/17 8:57 AM) Segs-Bands # [1.5-8.1 K/CMM] 3.0 K/CMM (06/04/17 8:57 AM) Lymphocytes # [1.0-5.5 K/CMM] 1.5 K/CMM (06/04/17 8:57 AM) Monocytes # [0.0-0.8 K/CMM] 0.4 K/CMM (06/04/17 8:57 AM) Eosinophils # [0.0-0.5 K/CMM] 0.2 K/CMM (06/04/17 8:57 AM) Basophils # [0.0-0.2 K/CMM] 0.0 K/CMM (06/04/17 8:57 AM) Immunizations No data available for this section [...]
--- OUTSIDE RECORDS SUMMARY | 2018-05-09 18:20 | XMS REPORT | Summary of Care ---
:1980 Author Organization [facility] Address [address] [place] [address]- Encounter HQ Stephanie_carmelo(CINDY) [id number] Date(s): 07/11/17 - 07/11/[address] Professional Services provided by [facility] [place] [address]- Discharge Diagnosis: Inflammatory bowel disease Discharge Disposition: Home or Self Care Attending Physician: Booker Luciano MD Vital Signs Most recent to oldest [Reference Range]: 1 2 Height 175.26 cm (07/11/17 3:30 PM) Temperature Oral [96.4-99.1 DegF] 98.6 DegF (07/11/17 3:30 PM) Blood Pressure [90-140/60-90 mmHg] 132/86 mmHg 139/90 mmHg (07/11/17 7:30 PM) (07/11/17 3:30 PM) Respiratory Rate [14-20 BRMIN] 18 BRMIN 18 BRMIN (07/11/17 7:30 PM) (07/11/17 3:30 PM) Peripheral Pulse Rate [60-100 bpm] 87 bpm 95 bpm (07/11/17 7:30 PM) (07/11/17 3:30 PM) Weight 93.182 kg (07/11/17 3:30 PM) Body Mass Index 30.34 m2 (07/11/17 3:30 PM) Problem List Condition Effective Dates Status Health Status Informant Crohn disease(Confirmed) Resolved Allergies, Adverse Reactions, Alerts Substance Reaction Severity Status NKDA Active Toradol Active Medications acetaminophen-hydrocodone 325 mg-5 mg oral tablet 1 tab, Route: PO, Drug Form: TAB, Dosing Weight 93.182, kg, ONCE, STAT, Start date: 07/11/17 17:19:00 CDT, Stop date: 07/11/17 17:19:00 CDT Notes: (Same as: [place] 325/5) Do not exceed 4gm/day of acetaminophen. Start Date: 07/11/17 Stop Date: 07/11/17 Status: Completedacetaminophen-hydrocodone 325 mg-5 mg oral tablet 1 tab, Route: PO, Drug Form: TAB, Dosing Weight 93.182, kg, ONCE, STAT, Start date: 07/11/17 17:58:00 CDT, Stop date: 07/11/17 17:58:00 CDT Notes: (Same as: [place] 325/5) Do not exceed 4gm/day of acetaminophen. Start Date: 07/11/17 Stop Date: 07/11/17 Status: Discontinuedmesalamine 500 mg oral capsule, extended release 1,000 mg=2 cap, PO, QID, # 112 cap, 0 Refill(s) Start Date: 07/11/17 Stop Date: 07/25/17 Status: Orderedmetoclopramide 10 mg, 2 mL, Route: IVP, Drug form: INJ, ONCE, Dosing Weight 93.182, kg, Priority: STAT, Start date:07/11/17 18:09:00 CDT, Stop date: 07/11/17 18:09:00 CDT Notes: (Same as: Reglan) Start Date: 07/11/17 Stop Date: 07/11/17 Status: Completedmorphine Sulfate 4 mg, 1 mL, Route: IVP, Drug form: SOLN, ONCE, Dosing Weight 93.182, kg, Priority: STAT, Start date:07/11/17 18:08:00 CDT, Stop date: 07/11/17 18:08:00 CDT Notes: (Same as:MORPhine Sulfate) Start Date: 07/11/17 Stop Date: 07/11/17 Status: CompletedTylenol with Codeine #3 oral tablet 1 - 2 tab, PO, Q6H, PRN Pain, X 3 day, # 20 tab, 0 Refill(s) Start Date: 07/11/17 Stop Date: 07/14/17 Status: OrderedZofran ODT 4 mg, 1 tab, Route: PO, Drug form: TABDIS, ONCE, Dosing Weight 93.182, kg, Priority: STAT, Start date: 07/11/17 17:19:00 CDT, Stop date: 07/11/17 17:19:00 CDT Notes: (Same as: Zofran ODT) Start Date: 07/11/17 Stop Date: 07/11/17 Status: CompletedZofran ODT 4 mg oral tablet, disintegrating 4 mg=1 tab, PO, BID, PRN Nausea and Vomiting, Dissolve tab under tongue, # 10 tab, 0 Refill(s) Start Date: 07/11/17 Stop Date: 07/16/17 Status: Ordered Results ELECTROLYTES Most recent to oldest [Reference Range]: 1 Sodium Lvl [135-145 mEq/L] 138 mEq/L (07/11/17 5:26 PM) Potassium Lvl [3.5-5.1 mEq/L] 4.4 mEq/L (07/11/17 5:26 PM) Chloride Lvl [95-109 mEq/L] 106 mEq/L (07/11/17 5:26 PM) CO2 [24-32 mEq/L] 24 mEq/L (07/11/17 5:26 PM) AGAP [10.0-20.0 mEq/L] 12.4 mEq/L (07/11/17 5:26 PM) CHEM PANEL Most recent to oldest [Reference Range]: 1 Creatinine Lvl [0.50-1.40 mg/dL] 0.91 mg/dL (07/11/17 5:26 PM) eGFR 126 mL/min/1.73m2 1 *NA* (07/11/17 5:26 PM) BUN [7-22 mg/dL] 10 mg/dL (07/11/17 5:26 PM) Glucose Lvl [70-99 mg/dL] 94 mg/dL (07/11/17 5:26 PM) Total Protein [6.4-8.4 g/dL] 7.6 g/dL (07/11/17 5:26 PM) Albumin Lvl [3.5-5.0 g/dL] 4.0 g/dL (07/11/17 5:26 PM) Globulin [2.7-4.2 g/dL] 3.6 g/dL (07/11/17 5:26 PM) A/G Ratio [0.7-1.6] 1.1 (07/11/17 5:26 PM) Calcium Lvl [8.5-10.5 mg/dL] 9.3 mg/dL (07/11/17 5:26 PM) ALT [0-65 unit/L] 37 unit/L (07/11/17 5:26 PM) AST [0-37 unit/L] 31 unit/L (07/11/17 5:26 PM) Alk Phos [39-136 unit/L] 62 unit/L (07/11/17 5: PM) Bili Total [0.2-1.3 mg/dL] 0.7 mg/dL (07/11/17 5:26 PM) Bili Direct [0.0-0.3 mg/dL] 0.1 mg/dL (07/11/17 5:26 PM) Bili Indirect [0.0-1.0 mg/dL] 0.6 mg/dL (07/11/17 5:26 PM) 1Result Comment: The eGFR is calculated using [...] eGFR should be multiplied by the estimated BMI.HEMATOLOGY Most recent to oldest [Reference Range]: 1 WBC [3.7-10.4 K/CMM] 7.6 K/CMM (07/11/17 5:26 PM) RBC [4.70-6.10 M/CMM] 4.01 M/CMM *LOW* (07/11/17 5:26 PM) Hgb [14.0-18.0 g/dL] 13.9 g/dL *LOW* (07/11/17 5:26 PM) Hct [42.0-54.0 %] 41.2 % *LOW* (07/11/17 5:26 PM) MCV [80.0-94.0 fL] 102.7 fL *HI* (07/11/17 5:26 PM) MCH [27.0-31.0 pg] 34.6 pg *HI* (07/11/17 5:26 PM) MCHC [32.0-36.0 g/dL] 33.7 g/dL (07/11/17 5:26 PM) RDW [11.5-14.5 %] 13.8 % (07/11/17 5:26 PM) Platelet [133-450 K/CMM] 211 K/CMM (07/11/17 5:26 PM) MPV [7.4-10.4 fL] 6.9 fL *LOW* (07/11/17 5:26 PM) Segs [45.0-75.0 %] 75.9 % *HI* (07/11/17 5:26 PM) Lymphocytes [20.0-40.0 %] 15.6 % *LOW* (07/11/17 5:26 PM) Monocytes [2.0-12.0 %] 6.9 % (07/11/17 5:26 PM) Eosinophils [0.0-4.0 %] 0.9 % (07/11/17 5:26 PM) Basophils [0.0-1.0 %] 0.7 % (07/11/17 5:26 PM) Segs-Bands # [1.5-8.1 K/CMM] 5.8 K/CMM (07/11/17 5:26 PM) Lymphocytes # [1.0-5.5 K/CMM] 1.2 K/CMM (07/11/17 5:26 PM) Monocytes # [0.0-0.8 K/CMM] 0.5 K/CMM (07/11/17 5:26 PM) Eosinophils # [0.0-0.5 K/CMM] 0.1 K/CMM (07/11/17 5:26 PM) Basophils # [0.0-0.2 K/CMM] 0.1 K/CMM (07/11/17 5:26 PM) Macrocyte [None Seen] 1+ *ABN* (07/11/17 5:26 PM) Immunizations No data available for this section Procedures Procedure Date Related Diagnosis Body Site Colon operation Operation on shoulder joint Surgery inpatient care management1 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 Alcohol Current Smoking Status Current every day smoker; Type: [...]
--- OUTSIDE RECORDS SUMMARY | 2018-05-09 18:20 | XMS REPORT | Summary of Care ---
:[address] [facility] Address [address] [place] [phone]- Encounter HQ Ericr_carmelo(FIN) [id number] Date(s): 06/24/17 - 06/24/17 [facility] [address] [place] [address] Professional Services provided by The [facility] [place] [address]- Discharge Diagnosis: Abdominal pain in male Discharge Disposition: Home or Self Care Attending Physician: Melani Hodge MD Vital Signs Most recent to oldest 1 2 3 [Reference Range]: Height 175.26 cm (06/24/17 2:28 AM) Temperature Oral [96.4-99.1 98 DegF 98.3 DegF DegF] (06/24/17 6:30 AM) (06/24/17 2:28 AM) Blood Pressure [90-140/60-90 142/85 mmHg 128/73 mmHg 164/89 mmHg mmHg] *HI* (06/24/17 5:06 AM) *HI* (06/24/17 6:30 AM) (06/24/17 3:21 AM) Respiratory Rate [14-20 BRMIN] 18 BRMIN 18 BRMIN 18 BRMIN (06/24/17 6:30 AM) (06/24/17 5:06 AM) (06/24/17 4:16 AM) Peripheral Pulse Rate [60-100 91 bpm bpm] (06/24/17 2:28 AM) Weight 93.182 kg (06/24/17 2:28 AM) Body Mass Index 30.34 m2 (06/24/17 2:28 AM) Problem List Condition Effective Dates Status Health Status Informant Crohn disease(Confirmed) Resolved Allergies, Adverse Reactions, Alerts Substance Reaction Severity Status NKDA Active Toradol Active Medications Dilaudid 0.5 mg, 0.25 mL, Route: IVP, Drug form: INJ, ONCE, Dosing Weight 93.182, kg, Priority: STAT, Start date: 06/24/17 5:05:00 CDT, Stop date: 06/24/17 5:05:00 CDT Notes: Same as: Dilaudid Start Date: 06/24/17 Stop Date: 06/24/17 Status: Completedmorphine Sulfate 6 mg, Route: IVP, ONCE, Dosing Weight 93.182, kg, Priority: STAT, Start date: 3:35:00 CDT, Stop date: 06/24/17 3:35:00 CDT Start Date: 06/24/17 Stop Date: 06/24/17 Status: CompletedNorco 5/325 oral tablet 1 tab, Route: PO, Drug Form: TAB, Dosing Weight 93.182, kg, ONCE, STAT, Start date: 06/24/17 5:06:00CDT, Stop date: 06/24/17 5:06:00 CDT Notes: (Same as: Jeddo 325/5) Do not exceed 4gm/day of acetaminophen. Start Date: 06/24/17 Stop Date: 06/24/17 Status: Completedtramadol 50 mg oral tablet 50 mg=1 tab, PO, Daily, Do not drive while taking this medication, X 5 day, # 5 tab, 0 Refill(s) Start Date: 06/24/17 Stop Date: 06/29/17 Status: OrderedZofran 4 mg, Route: IVP, Drug form: INJ, ONCE, Dosing Weight 93.182, kg, Priority: STAT , Start date: 06/24/17 3:35:00 CDT, Stop date: 06/24/17 3:35:00 CDT Start Date: 06/24/17 Stop Date: 06/24/17 Status: CompletedZofran ODT 4 mg, 1 tab, Route: PO, Drug form: TABDIS, ONCE, Dosing Weight 93.182, kg, Priority: STAT, Start date: 06/24/17 6:30:00 CDT, Stop date: 06/24/17 6:30:00 CDT Notes: (Same as: Zofran ODT) Start Date: 06/24/17 Stop Date: 06/24/17 Status: Completed Results ELECTROLYTES Most recent to oldest [Reference Range]: 1 Sodium Lvl [135-145 mEq/L] 140 mEq/L (06/24/17 3:36 AM) Potassium Lvl [3.5-5.1 mEq/L] 3.7 mEq/L (06/24/17 3:36 AM) Chloride Lvl [95-109 mEq/L] 104 mEq/L (06/24/17 3:36 AM) CO2 [24-32 mEq/L] 25 mEq/L (06/24/17 3:36 AM) AGAP [10.0-20.0 mEq/L] 14.7 mEq/L (06/24/17 3:36 AM) CHEM PANEL Most recent to oldest [Reference Range]: 1 Creatinine Lvl [0.50-1.40 mg/dL] 0.87 mg/dL (06/24/17 3:36 AM) eGFR 129 mL/min/1.73m2 1 *NA* (06/24/17 3:36 AM) BUN [7-22 mg/dL] 10 mg/dL (06/24/17 3:36 AM) Glucose Lvl [70-99 mg/dL] 92 mg/dL (06/24/17 3:36 AM) Total Protein [6.4-8.4 g/dL] 7.5 g/dL (06/24/17 3:36 AM) Albumin Lvl [3.5-5.0 g/dL] 4.1 g/dL (06/24/17 3:36 AM) Globulin [2.7-4.2 g/dL] 3.4 g/dL (06/24/17 3:36 AM) A/G Ratio [0.7-1.6] 1.2 (06/24/17 3:36 AM) Calcium Lvl [8.5-10.5 mg/dL] 9.0 mg/dL (06/24/17 3:36 AM) ALT [0-65 unit/L] 34 unit/L (06/24/17 3:36 AM) AST [0-37 unit/L] 22 unit/L (06/24/17 3:36 AM) Alk Phos [39-136 unit/L] 70 unit/L (06/24/17 3:36 AM) Bili Total [0.2-1.3 mg/dL] 0.8 mg/dL (06/24/17 3:36 AM) Bili Direct [0.0-0.3 mg/dL] 0.1 mg/dL (06/24/17 3:36 AM) Bili Indirect [0.0-1.0 mg/dL] 0.7 mg/dL (06/24/17 3:36 AM) Lipase Lvl [73-393 unit/L] 412 unit/L *HI* (06/24/17 3:36 AM) Lactic Acid Lvl [0.5-2.2 mMol/L] 0.8 mMol/L (06/24/17 3:36 AM) 1Result Comment: The eGFR is calculated [...] oldest [Reference Range]: 1 WBC [3.7-10.4 K/CMM] 5.9 K/CMM (06/24/17 3:36 AM) RBC [4.70-6.10 M/CMM] 3.91 M/CMM *LOW* (06/24/17 3:36 AM) Hgb [14.0-18.0 g/dL] 13.3 g/dL *LOW* (06/24/17 3:36 AM) Hct [42.0-54.0 %] 40.4 % *LOW* (06/24/17 3:36 AM) MCV [80.0-94.0 fL] 103.4 fL *HI* (06/24/17 3:36 AM) MCH [27.0-31.0 pg] 34.1 pg *HI* (06/24/17 3:36 AM) MCHC [32.0-36.0 g/dL] 33.0 g/dL (06/24/17 3:36 AM) RDW [11.5-14.5 %] 14.3 % (06/24/17 3:36 AM) Platelet [133-450 K/CMM] 192 K/CMM (06/24/17 3:36 AM) MPV [7.4-10.4 fL] 6.3 fL *LOW* (06/24/17 3:36 AM) Segs [45.0-75.0 %] 62.8 % (06/24/17 3:36 AM) Lymphocytes [20.0-40.0 %] 24.2 % (06/24/17 3:36 AM) Monocytes [2.0-12.0 %] 9.4 % (06/24/17 3:36 AM) Eosinophils [0.0-4.0 %] 3.1 % (06/24/17 3:36 AM) Basophils [0.0-1.0 %] 0.5 % (06/24/17 3:36 AM) Segs-Bands # [1.5-8.1 K/CMM] 3.7 K/CMM (06/24/17 3:36 AM) Lymphocytes # [1.0-5.5 K/CMM] 1.4 K/CMM (06/24/17 3:36 AM) Monocytes # [0.0-0.8 K/CMM] 0.6 K/CMM (06/24/17 3:36 AM) Eosinophils # [0.0-0.5 K/CMM] 0.2 K/CMM (06/24/17 3:36 AM) Macrocyte [None Seen] 1+ *ABN* (06/24/17 3:36 AM) Immunizations No data available for this [...]
--- OUTSIDE RECORDS SUMMARY | 2018-05-09 18:20 | XMS REPORT | Summary of Care ---
:1980 Author Organization [facility] Address [address] [place] [phone]- Encounter HQ Ericr_carmelo(FIN) [id number] Date(s): 06/17/17 - 06/18/17 [facility] [address] [place] [address] Professional Services provided by The [facility] [place] [address]- Discharge Diagnosis: History of inflammatory bowel disease Discharge Diagnosis: Abdominal pain, LLQ (left lower quadrant) Discharge Disposition: Home or Self Care Attending Physician: Jose Alberto Pérez DO Vital Signs Most recent to oldest 1 2 3 [Reference Range]: Height 175.26 cm (06/17/17 10:54 PM) Temperature Oral [96.4-99.1 97.9 DegF 98.6 DegF 98.2 DegF DegF] (06/18/17 3:43 AM) (06/18/17 12:19 AM) (06/17/17 10:54 PM) Blood Pressure [90-140/60-90 146/85 mmHg 133/68 mmHg 139/90 mmHg mmHg] *HI* (06/18/17 3:01 AM) (06/18/17 12:19 AM) (06/18/17 3:43 AM) Respiratory Rate [14-20 BRMIN] 16 BRMIN 17 BRMIN 16 BRMIN (06/18/17 3:43 AM) (06/18/17 3:01 AM) (06/18/17 12:19 AM) Peripheral Pulse Rate [60-100 90 bpm 87 bpm 82 bpm bpm] (06/18/17 3:43 AM) (06/18/17 3:01 AM) (06/18/17 12:19 AM) Weight 93.182 kg (06/17/17 10:54 PM) Body Mass Index 30.34 m2 (06/17/17 10:54 PM) Problem List Condition Effective Dates Status Health Status Informant Crohn disease(Confirmed) Resolved Allergies, Adverse Reactions, Alerts Substance Reaction Severity Status NKDA Active Toradol Active Medications morphine Sulfate 4 mg, Route: IVP, ONCE, Dosing Weight 93.182, kg, Priority: STAT, Start date: 2:10:00 CDT, Stop date: 06/18/17 2:10:00 CDT Start Date: 06/18/17 Stop Date: 06/18/17 Status: Completedmorphine Sulfate 4 mg, 1 mL, Route: IVP, Drug form: SOLN, ONCE, Dosing Weight 93.182, kg, Priority: STAT, Start date:06/17/17 23:53:00 CDT, Stop date: 06/17/17 23:53:00 CDT Notes: (Same as:MORPhine Sulfate) Start Date: 06/17/17 Stop Date: 06/18/17 Status: CompletedOmnipaque 350mg/ml 100 mL, Route: IVP, Drug Form: SOLN, Dosing Weight 93.182, kg, ONCALL, STAT, Start date: 06/18/17 1:04:00 CDT, Duration: 1 doses or times, Dose=2.2ml/kg, Max sqcc=[id number] -- "To be infused by Radiology Staff ONLY" Notes: (same as:Omnipaque 350).WASTE: F/P - Black; E - Municipal Trash Bin Start Date: 06/18/17 Stop Date: 06/18/17 Status: Completedondansetron 4 mg, Route: IVP, Drug form: INJ, ONCE, Dosing Weight 93.182, kg, Priority: STAT , Start date: 06/18/17 2:10:00 CDT, Stop date: 06/18/17 2:10:00 CDT Start Date: 06/18/17 Stop Date: 06/18/17 Status: Completedondansetron 4 mg, 2 mL, Route: IVP, Drug form: INJ, ONCE, Dosing Weight 93.182, kg, Priority : STAT, Start date: 06/17/17 23:53:00 CDT, Stop date: 06/17/17 23:53:00 CDT Notes: (Same as: Ever) MEDICATION WASTE Product Size: 4 mgProduct Wasted: ___ mg Start Date: 06/17/17 Stop Date: 06/18/17 Status: Completedsodium chloride 0.9% 1000 ml INJ 1,000 mL 1,000 mL, Rate: 1,000 ml/hr, Infuse over: 1 hr, Route: IV, Dosing Weight 93.182 kg, Total Volume: 1,000, Start date: 06/18/17 2:36:00 CDT, Duration: 1 doses or times, Stop date: 06/18/17 3:35:00 CDT, Bolus Dose Start Date: 06/18/17 Stop Date: 06/18/17 Status: Completedtramadol 50 mg oral tablet 50 mg=1 tab, PO, Q6H, PRN Pain, For break through pain, X 3 day, # 12 tab, 0 Refill(s) Start Date: 06/18/17 Stop Date: 06/21/17 Status: OrderedTylenol 325 mg oral tablet 325 mg=1 tab, PO, Q4H, PRN Pain, X 10 day, # 60 tab, 0 Refill(s) Start Date: 06/18/17 Stop Date: 06/28/17 Status: Ordered Results ELECTROLYTES Most recent to oldest [Reference Range]: 1 Sodium Lvl [135-145 mEq/L] 140 mEq/L (06/18/17 12:13 AM) Potassium Lvl [3.5-5.1 mEq/L] 4.4 mEq/L (06/18/17 12:13 AM) Chloride Lvl [95-109 mEq/L] 106 mEq/L (06/18/17 12:13 AM) CO2 [24-32 mEq/L] 26 mEq/L (06/18/17 12:13 AM) AGAP [10.0-20.0 mEq/L] 12.4 mEq/L (06/18/17 12:13 AM) CHEM PANEL Most recent to oldest [Reference Range]: 1 Creatinine Lvl [0.50-1.40 mg/dL] 0.91 mg/dL (06/18/17 12:13 AM) eGFR 126 mL/min/1.73m2 1 *NA* (06/18/17 12:13 AM) BUN [7-22 mg/dL] 12 mg/dL (06/18/17 12:13 AM) Glucose Lvl [70-99 mg/dL] 108 mg/dL *HI* (06/18/17 12:13 AM) Total Protein [6.4-8.4 g/dL] 7.6 g/dL (06/18/17 12:13 AM) Albumin Lvl [3.5-5.0 g/dL] 4.1 g/dL (06/18/17 12:13 AM) Globulin [2.7-4.2 g/dL] 3.5 g/dL (06/18/17 12:13 AM) A/G Ratio [0.7-1.6] 1.2 (06/18/17 12:13 AM) Calcium Lvl [8.5-10.5 mg/dL] 9.3 mg/dL (06/18/17 12:13 AM) ALT [0-65 unit/L] 33 unit/L (06/18/17 12:13 AM) AST [0-37 unit/L] 19 unit/L (06/18/17 12:13 AM) Alk Phos [39-136 unit/L] 74 unit/L (06/18/17 12:13 AM) Bili Total [0.2-1.3 mg/dL] 0.8 mg/dL (06/18/17 12:13 AM) Bili Direct [0.0-0.3 mg/dL] 0.1 mg/dL (06/18/17 12:13 AM) Bili Indirect [0.0-1.0 mg/dL] 0.7 mg/dL (06/18/17 12:13 AM) Lipase Lvl [73-393 unit/L] 504 unit/L *HI* (06/18/17 12:13 AM) Lactic Acid Lvl [0.5-2.2 mMol/L] 1.7 mMol/L (06/18/17 12:13 AM) 1Result Comment: The eGFR is calculated [...] oldest [Reference Range]: 1 WBC [3.7-10.4 K/CMM] 8.2 K/CMM (06/18/17 12:13 AM) RBC [4.70-6.10 M/CMM] 3.90 M/CMM *LOW* (06/18/17 12:13 AM) Hgb [14.0-18.0 g/dL] 13.5 g/dL *LOW* (06/18/17 12:13 AM) Hct [42.0-54.0 %] 39.6 % *LOW* (06/18/17 12:13 AM) MCV [80.0-94.0 fL] 101.6 fL *HI* (06/18/17 12:13 AM) MCH [27.0-31.0 pg] 34.7 pg *HI* (06/18/17 12:13 AM) MCHC [32.0-36.0 g/dL] 34.1 g/dL (06/18/17 12:13 AM) RDW [11.5-14.5 %] 14.0 % (06/18/17 12: AM) Platelet [133-450 K/CMM] 188 K/CMM (06/18/17 12:13 AM) MPV [7.4-10.4 fL] 6.3 fL *LOW* (06/18/17 12:13 AM) Segs [45.0-75.0 %] 88.4 % *HI* (06/18/17 12:13 AM) Lymphocytes [20.0-40.0 %] 8.4 % *LOW* (06/18/17 12:13 AM) Monocytes [2.0-12.0 %] 2.1 % (06/18/17 12:13 AM) Eosinophils [0.0-4.0 %] 0.5 % (06/18/17 12:13 AM) Basophils [0.0-1.0 %] 0.6 % (06/18/17 12:13 AM) Segs-Bands # [1.5-8.1 K/CMM] 7.3 K/CMM (06/18/17 12:13 AM) Lymphocytes # [1.0-5.5 K/CMM] 0.7 K/CMM *LOW* (06/18/17 12:13 AM) Monocytes # [0.0-0.8 K/CMM] 0.2 K/CMM (06/18/17 12:13 AM) Macrocyte [None Seen] 1+ *ABN* (06/18/17 12:13 AM) Immunizations No data available for this [...]
--- OUTSIDE RECORDS SUMMARY | 2018-05-09 18:20 | XMS REPORT | Summary of Care ---
:1980 Author Organization [facility] Address [address] [place] [phone]- Encounter HQ Encntr_aliterell(FIN) [id number] Date(s): 06/23/17 - 06/23/17 [facility] [address] [place] [address] Professional Services provided by The [facility] [place] [address]- Discharge Disposition: Left Without Being Seen Attending Physician: Amie Cordova MD Vital Signs Most recent to oldest [Reference Range]: 1 Height 175.26 cm (06/23/17 2:15 PM) Temperature Oral [96.4-99.1 DegF] 98.1 DegF (06/23/17 2:15 PM) Blood Pressure [90-140/60-90 mmHg] 137/96 mmHg (06/23/17 2:15 PM) Respiratory Rate [14-20 BRMIN] 18 BRMIN (06/23/17 2:15 PM) Peripheral Pulse Rate [60-100 bpm] 107 bpm *HI* (06/23/17 2:15 PM) Weight 93.182 kg (06/23/17 2:15 PM) Body Mass Index 30.34 m2 (06/23/17 2:15 PM) Problem List Condition Effective Dates Status Health Status Informant Crohn disease(Confirmed) Resolved Allergies, Adverse Reactions, Alerts Substance Reaction Severity Status NKDA Active Toradol Active Medications No data available for this section Results ELECTROLYTES Most recent to oldest [Reference Range]: 1 Sodium Lvl [135-145 mEq/L] 141 mEq/L (06/23/17 2:25 PM) Potassium Lvl [3.5-5.1 mEq/L] 4.0 mEq/L (06/23/17 2:25 PM) Chloride Lvl [95-109 mEq/L] 107 mEq/L (06/23/17 2:25 PM) CO2 [24-32 mEq/L] 25 mEq/L (06/23/17 2:25 PM) AGAP [10.0-20.0 mEq/L] 13.0 mEq/L (06/23/17 2:25 PM) CHEM PANEL Most recent to oldest [Reference Range]: 1 Creatinine Lvl [0.50-1.40 mg/dL] 1.03 mg/dL (06/23/17 2:25 PM) eGFR 108 mL/min/1.73m2 1 *NA* (06/23/17 2:25 PM) BUN [7-22 mg/dL] 10 mg/dL (06/23/17 2:25 PM) B/C Ratio [6-25] 10 (06/23/17 2:25 PM) Glucose Lvl [70-99 mg/dL] 126 mg/dL *HI* (06/23/17 2:25 PM) Total Protein [6.4-8.4 g/dL] 7.6 g/dL (06/23/17 2:25 PM) Albumin Lvl [3.5-5.0 g/dL] 4.1 g/dL (06/23/17 2:25 PM) Globulin [2.7-4.2 g/dL] 3.5 g/dL (06/23/17 2:25 PM) A/G Ratio [0.7-1.6] 1.2 (06/23/17 2:25 PM) Calcium Lvl [8.5-10.5 mg/dL] 9.1 mg/dL (06/23/17 2:25 PM) ALT [0-65 unit/L] 33 unit/L (06/23/17 2:25 PM) AST [0-37 unit/L] 18 unit/L (06/23/17 2:25 PM) Alk Phos [39-136 unit/L] 73 unit/L (06/23/17 2:25 PM) Bili Total [0.2-1.3 mg/dL] 0.6 mg/dL (06/23/17 2:25 PM) Lipase Lvl [73-393 unit/L] 291 unit/L (06/23/17 2:25 PM) 1Result Comment: The eGFR is calculated [...] oldest [Reference Range]: 1 WBC [3.7-10.4 K/CMM] 6.4 K/CMM (06/23/17 2:25 PM) RBC [4.70-6.10 M/CMM] 4.13 M/CMM *LOW* (06/23/17 2:25 PM) Hgb [14.0-18.0 g/dL] 14.2 g/dL (06/23/17 2:25 PM) Hct [42.0-54.0 %] 42.6 % (06/23/17 2:25 PM) MCV [80.0-94.0 fL] 103.1 fL *HI* (06/23/17 2:25 PM) MCH [27.0-31.0 pg] 34.3 pg *HI* (06/23/17 2:25 PM) MCHC [32.0-36.0 g/dL] 33.3 g/dL (06/23/17 2:25 PM) RDW [11.5-14.5 %] 14.0 % (06/23/17 2:25 PM) Platelet [133-450 K/CMM] 207 K/CMM (06/23/17 2:25 PM) MPV [7.4-10.4 fL] 6.5 fL *LOW* (06/23/17 2:25 PM) Segs [45.0-75.0 %] 69.0 % (06/23/17 2:25 PM) Lymphocytes [20.0-40.0 %] 19.8 % *LOW* (06/23/17 2:25 PM) Monocytes [2.0-12.0 %] 8.5 % (06/23/17 2:25 PM) Eosinophils [0.0-4.0 %] 2.3 % (06/23/17 2:25 PM) Basophils [0.0-1.0 %] 0.4 % (06/23/17 2:25 PM) Segs-Bands # [1.5-8.1 K/CMM] 4.4 K/CMM (06/23/17 2:25 PM) Lymphocytes # [1.0-5.5 K/CMM] 1.3 K/CMM (06/23/17 2:25 PM) Monocytes # [0.0-0.8 K/CMM] 0.5 K/CMM (06/23/17 2:25 PM) Eosinophils # [0.0-0.5 K/CMM] 0.1 K/CMM (06/23/17 2:25 PM) Macrocyte [None Seen] 1+ *ABN* (06/23/17 2:25 PM) Immunizations No data available for this [...]
--- OUTSIDE RECORDS SUMMARY | 2018-05-09 18:20 | XMS REPORT | Summary of Care ---
:1980 Author Organization [facility] Address [address] [place] [phone]- Encounter HQ Rod(FIN) [id number] Date(s): 06/06/17 - 06/06/17 [facility] [address] [place] [phone] Discharge Diagnosis: Abdominal pain in male Discharge Diagnosis: Drug-seeking behavior Discharge Disposition: Home or Self Care Attending Physician: Chava Hawley DO Vital Signs Most recent to oldest 1 2 3 [Reference Range]: Height 172.72 cm (06/06/17 1:01 PM) Temperature Oral [96.4-99.1 98.0 DegF DegF] (06/06/17 1:01 PM) Blood Pressure [90-140/60-90 128/79 mmHg 133/86 mmHg 119/91 mmHg mmHg] (06/06/17 5:14 PM) (06/06/17 4:04 PM) (06/06/17 3:13 PM) Respiratory Rate [14-20 BRMIN] 16 BRMIN 16 BRMIN 16 BRMIN (06/06/17 5:14 PM) (06/06/17 4:04 PM) (06/06/17 3:13 PM) Peripheral Pulse Rate [60-100 70 bpm 77 bpm 70 bpm bpm] (06/06/17 5:14 PM) (06/06/17 4:04 PM) (06/06/17 3:13 PM) Weight 100 kg (06/06/17 1:01 PM) Body Mass Index 33.52 m2 (06/06/17 1:01 PM) Problem List Condition Effective Dates Status Health Status Informant Crohn disease(Confirmed) Resolved Allergies, Adverse Reactions, Alerts Substance Reaction Severity Status NKDA Active Toradol Active Medications morphine Sulfate 4 mg, 1 mL, Route: IVP, Drug form: SOLN, ONCE, Dosing Weight 100, kg, Priority: STAT, Start date: 06/06/17 14:29:00 CDT, Stop date: 06/06/17 14:29:00 CDT Notes: (Same as: MORPhine Sulfate) Start Date: 06/06/17 Stop Date: 06/06/17 Status: Completedmorphine Sulfate 6 mg, Route: IVP, ONCE, Dosing Weight 100, kg, Priority: STAT, Start date: 06/06 15:04:00 CDT, Stop date: 06/06/17 15:04:00 CDT Start Date: 06/06/17 Stop Date: 06/06/17 Status: CompletedNS (Bolus) IV 1,000 mL, 1,000 ml/hr, Infuse Over: 1 hr, Route: IV, 1,000, Drug form: INJ, ONCE , Priority: STAT, Dosing Weight 100 kg, Start date: 06/06/17 14:29:00 CDT, Duration: 1 doses or times, Stop date: 06/06/17 14:29:00 CDT Start Date: 06/06/17 Stop Date: 06/06/17 Status: Completedsodium chloride 0.9% 1000 ml INJ 1,000 mL 1,000 mL, Rate: 1,000 ml/hr, Infuse over: 1 hr, Route: IV, Dosing Weight 93.182 kg, Total Volume: 1,000, Priority: STAT, Start date: 06/06/17 13:07:00 CDT, Duration: 1 doses or times, Stop date: 06/06/17 14:06:00 CDT Start Date: 06/06/17 Stop Date: 06/06/17 Status: CompletedZofran 4 mg, 2 mL, Route: IVP, Drug form: INJ, ONCE, Dosing Weight 100, kg, Priority: STAT, Start date: 06/06/17 14:29:00 CDT, Stop date: 06/06/17 14:29:00 CDT Notes: (Same as: Zofran) MEDICATION WASTE Product Size: 4 mgProduct Wasted: ___ mg Start Date: 06/06/17 Stop Date: 06/06/17 Status: Completed Results ELECTROLYTES Most recent to oldest [Reference Range]: 1 Sodium Lvl [135-145 mEq/L] 138 mEq/L (06/06/17 2:24 PM) Potassium Lvl [3.5-5.1 mEq/L] 4.3 mEq/L (06/06/17 2:24 PM) Chloride Lvl [95-109 mEq/L] 106 mEq/L (06/06/17 2:24 PM) CO2 [24-32 mEq/L] 30 mEq/L (06/06/17 2:24 PM) AGAP [10.0-20.0 mEq/L] 6.3 mEq/L *LOW* (06/06/17 2:24 PM) CHEM PANEL Most recent to oldest [Reference Range]: 1 Creatinine Lvl [0.50-1.40 mg/dL] 0.78 mg/dL (06/06/17 2:24 PM) eGFR 135 mL/min/1.73m2 1 *NA* (06/06/17 2:24 PM) BUN [7-22 mg/dL] 11 mg/dL (06/06/17 2:24 PM) B/C Ratio [6-25] 14 (06/06/17 2:24 PM) Glucose Lvl [70-99 mg/dL] 91 mg/dL (06/06/17 2:24 PM) Total Protein [6.4-8.4 g/dL] 7.2 g/dL (06/06/17 2:24 PM) Albumin Lvl [3.5-5.0 g/dL] 3.7 g/dL (06/06/17 2:24 PM) Globulin [2.7-4.2 g/dL] 3.5 g/dL (06/06/17 2:24 PM) A/G Ratio [0.7-1.6] 1.1 (06/06/17 2:24 PM) Calcium Lvl [8.5-10.5 mg/dL] 8.9 mg/dL (06/06/17 2:24 PM) ALT [0-65 unit/L] 21 unit/L (06/06/17 2:24 PM) AST [0-37 unit/L] 14 unit/L (06/06/17 2:24 PM) Alk Phos [39-136 unit/L] 71 unit/L (06/06/17 2:24 PM) Bili Total [0.2-1.3 mg/dL] 0.6 mg/dL (06/06/17 2:24 PM) Lipase Lvl [73-393 unit/L] 192 unit/L (06/06/17 2:24 PM) 1Result Comment: The eGFR is calculated [...] [Reference Range]: 1 UA Turbidity [Clear] Clear (06/06/17 1:55 PM) UA Color [Yellow] Yellow *NA* (06/06/17 1:55 PM) UA pH [5.0-8.0] 7.0 (06/06/17 1:55 PM) UA Spec Grav [<=1.030] 1.020 (06/06/17 1:55 PM) UA Glucose [Negative mg/dL] Negative mg/dL (06/06/17 1:55 PM) UA Blood [Negative] Negative (06/06/17 1:55 PM) UA Ketones [Negative mg/dL] Negative mg/dL *NA* (06/06/17 1:55 PM) UA Protein [Negative mg/dL] Negative mg/dL (06/06/17 1:55 PM) UA Urobilinogen [0.1-1.0 EU/dL] 0.2 EU/dL (06/06/17 1:55 PM) UA Bili [Negative] Negative *NA* (06/06/17 1:55 PM) UA Leuk Est [Negative] Negative (06/06/17 1:55 PM) UA Nitrite [Negative] Negative (06/06/17 1:55 PM) UA WBC [None Seen] None Seen (06/06/17 1:55 PM) UA RBC [0-2 /HPF] 0-2 /HPF (06/06/17 1:55 PM) UA Bacteria [None Seen] None Seen (06/06/17 1:55 PM) UA Sq Epi [Few] None Seen (06/06/17 1:55 PM) HEMATOLOGY Most recent to oldest [Reference Range]: 1 WBC [3.7-10.4 K/CMM] 7.0 K/CMM (06/06/17 2:24 PM) RBC [4.70-6.10 M/CMM] 3.97 M/CMM *LOW* (06/06/17 2:24 PM) Hgb [14.0-18.0 g/dL] 14.1 g/dL (06/06/17 2:24 PM) Hct [42.0-54.0 %] 40.5 % *LOW* (06/06/17 2:24 PM) MCV [80.0-94.0 fL] 102.0 fL *HI* (06/06/17 2:24 PM) MCH [27.0-31.0 pg] 35.5 pg *HI* (06/06/17 2:24 PM) MCHC [32.0-36.0 g/dL] 34.8 g/dL (06/06/17 2:24 PM) RDW [11.5-14.5 %] 13.1 % (06/06/17 2:24 PM) Platelet [133-450 K/CMM] 212 K/CMM (06/06/17 2:24 PM) MPV [7.4-10.4 fL] 6.2 fL *LOW* (06/06/17 2:24 PM) Segs [45.0-75.0 %] 66.6 % (06/06/17 2:24 PM) Lymphocytes [20.0-40.0 %] 23.0 % (06/06/17 2:24 PM) Monocytes [2.0-12.0 %] 7.7 % (06/06/17 2:24 PM) Eosinophils [0.0-4.0 %] 2.0 % (06/06/17 2:24 PM) Basophils [0.0-1.0 %] 0.7 % (06/06/17 2:24 PM) Segs-Bands # [1.5-8.1 K/CMM] 4.7 K/CMM (06/06/17 2:24 PM) Lymphocytes # [1.0-5.5 K/CMM] 1.6 K/CMM (06/06/17 2:24 PM) Monocytes # [0.0-0.8 K/CMM] 0.5 K/CMM (06/06/17 2:24 PM) Eosinophils # [0.0-0.5 K/CMM] 0.1 K/CMM (06/06/17 2:24 PM) Immunizations No data available for this [...]
--- OUTSIDE RECORDS SUMMARY | 2018-05-09 18:20 | XMS REPORT ---
:1980 Author Organization [facility] Address [address] [place] [address] Care Team Providers Name Role Phone UNKNOWN, [...] Facility Department ID 2017-06-29 2017-06-29 Emergency [facility] [id number] 15:02:00 15:02:00 2017-06-03 2017-06-03 Emergency [facility] [id number] 23:59:00 23:59:00 Results Test Description Test Time Test Comments Text Results Atomic Results Result Comments HEPATIC FUNCTION PANEL 2017-06-04 02:17:00 Test Item Value Reference Range Comments TOTAL PROTEIN (BEAKER) (test ltkm=274) 7.0 gm/dL 6.0-8.5 ALBUMIN (BEAKER) (test cgug=0996) 4.0 g/dL 3.5-5.0 BILIRUBIN TOTAL (BEAKER) (test ihdu=638) 0.8 mg/dL 0.1-1.2 BILIRUBIN DIRECT (BEAKER) (test kswe=025) 0.3 mg/dL 0.0-0.4 ALKALINE PHOSPHATASE (BEAKER) (test rfmd=970) 51 U/L 30-115 AST (SGOT) (BEAKER) (test xzaf=438) 26 U/L 5-40 ALT (SGPT) (BEAKER) (test bvcg=964) 29 U/L 5-50 [id number] 02:17:00 Test Item Value Reference Range Comments AMYLASE (BEAKER) (test capp=971) 102 U/L 30-110 [id number] 02:17:00 Test Item Value Reference Range Comments LIPASE (BEAKER) (test qnmz=249) 62 U/L 40-240 BASIC METABOLIC [id number] 02:17:00 Test Item Value Reference Range Comments SODIUM (BEAKER) (test 140 meq/L 135-148 ksse=477) POTASSIUM (BEAKER) (test 3.6 meq/L 3.6-5.5 aacs=838) CHLORIDE (BEAKER) (test 104 meq/L 98-106 qpwe=750) CO2 (BEAKER) (test 28 meq/L 24-32 pcmu=135) BLOOD UREA NITROGEN 6 mg/dL 10-26 (BEAKER) (test trsw=758) CREATININE (BEAKER) (test 0.76 mg/dL 0.50-1.20 bfag=057) GLUCOSE RANDOM (BEAKER) 107 mg/dL 70-110 (test wvjl=344) CALCIUM (BEAKER) (test 8.9 mg/dL 8.5-10.5 dgxl=011) EGFR (BEAKER) (test 141 mL/min/1.73 sq m ESTIMATED GFR IS NOT bzgb=4182) ACCURATE CREATININE CLEARANCE IN PREDICTING GLOMERULAR FILTRATION RATE. ESTIMATED GFR IS NOT APPLICABLE FOR DIALYSIS PATIENTS. CBC W/PLT COUNT & AUTO [id number] 02:10:00 Test Item Value Reference Range Comments WHITE BLOOD CELL COUNT (BEAKER) (test aeja=517) 5.7 10e3/ L 4.0-10.0 RED BLOOD CELL COUNT (BEAKER) (test smpr=132) 3.86 10e6/ L 4.20-5.80 HEMOGLOBIN (BEAKER) (test wnij=914) 13.3 g/dL 13.0-16.8 HEMATOCRIT (BEAKER) (test ruhx=462) 40.2 % 40.0-50.0 MEAN CORPUSCULAR VOLUME (BEAKER) (test 104.3 fL 82.0-98.0 xbxu=148) MEAN CORPUSCULAR HEMOGLOBIN (BEAKER) (test 34.5 pg 27.0-33.0 ccoo=080) MEAN CORPUSCULAR HEMOGLOBIN CONC (BEAKER) (test 33.0 g/dL 32.0-36.0 pvlk=327) RED CELL DISTRIBUTION WIDTH (BEAKER) (test 10.6 % 10.3-14.2 tlux=839) PLATELET COUNT (BEAKER) (test vwoo=204) 82 10e3/ L 150-430 MEAN PLATELET VOLUME (BEAKER) (test azzr=538) 8.2 fL 6.5-10.5 NEUTROPHILS RELATIVE PERCENT (BEAKER) (test 60 % apla=388) LYMPHOCYTES RELATIVE PERCENT (BEAKER) (test 32 % mewn=726) MONOCYTES RELATIVE PERCENT (BEAKER) (test 6 % pwhq=187) EOSINOPHILS RELATIVE PERCENT (BEAKER) (test 3 % wyzo=218) BASOPHILS RELATIVE PERCENT (BEAKER) (test 0 % ecgn=878) NEUTROPHILS ABSOLUTE COUNT (BEAKER) (test 3.39 10e3/ L 1.80-8.00 hqhg=292) LYMPHOCYTES ABSOLUTE COUNT (BEAKER) (test 1.78 10e3/ L 1.48-4.50 kfib=423) MONOCYTES ABSOLUTE COUNT (BEAKER) (test 0.32 10e3/ L 0.00-1.30 xgua=528) EOSINOPHILS ABSOLUTE COUNT (BEAKER) (test 0.14 10e3/ L 0.00-0.50 rpek=792) BASOPHILS ABSOLUTE COUNT (BEAKER) (test 0.02 10e3/ L 0.00-0.20 exff=618) CT ABDOMEN/PELVIS [id number] 22:28:[address] [id number] IMAGING REPORTPatient Name : Lee Ann PRATT of Service: [id number]: 37 Sex: M Order #: [id number] Room: [facility]: 1980 X-Ray Number: [id number] Record Number: [id number] Hospital Number: [id number] Physician: PEDRO ALIOrdering Physician: RACHID HYMAN ABDOMEN [...] by JEWELS Castillo 2017-05-31 22:26:08CHEST XR 2 [id number] 21:47:[address] [id number] IMAGING REPORTPatient Name: Lee Ann PRATT of Service: [id number]: 37 Sex: M Order #: [id number] [facility] 1979 [facility] Number: [id number] Record Number: [id number] Hospital Number: [id number] Physician: MARCIE VASQUEZOrdering Physician: URIEL HYMAN 2 VIEWS:CLINICAL HISTORY: Right rib pain; recent fall playing basketballTECHNIQUE: PA and lateralFINDINGS: The heart and pulmonary vasculature are normal, and the lungs areclear.The mediastinal structures and bony thorax are normal.IMPRESSION:Normal chest.Electronically Signed By: Silver Cerna M.D., 05/31/2017 9:44 PMLegallani authenticated by JEWELS Castillo 2017-05-31 21:44:55
--- NOTE | 2018-05-09 18:40 | ER ---
Nurse's Notes [facility] Name: Johan Moreno Age: 38 yrs Sex: Male : 1980 Arrival Date: 05/09/2018 Time: 18:15 Bed 5 Private MD: Diagnosis: Laceration without foreign body of foot-Left Heel Presentation: 05/09 18:29 Presenting complaint: Patient states: small skin avulsion noted to back of L Achilles. ss No bleeding noted at this time. Pt reports injury occurred yesterday, and he came in to get a work note since he missed work today. Transition of care: patient was not received from another setting of care. Complicating Factors: There are no complicating factors for this patient. Onset of symptoms was May 08, 2018. Risk Assessment: Do you want to hurt yourself or someone else? Patient reports no desire to harm self or others. Initial Sepsis Screen: Does the patient meet any 2 criteria? No. Patient's initial sepsis screen is negative. Does the patient have a suspected source of infection? No. Patient's initial sepsis screen is negative. Care prior to arrival: None. 18:29 Acuity: KJ 5 ss 18:29 Method Of Arrival: Ambulatory ss Triage Assessment: 19:14 Injury Description: Laceration is Abrasion to left posterior ankle. ae1 Historical: - Allergies: 18:31 Toradol; ss - Home Meds: 18:31 None [Active]; ss - PMHx: 18:31 Crohn's; ss - PSHx: 18:31 Bowel resection; ss - Immunization history:: Adult Immunizations up to date. - Social history:: Smoking status: Patient uses tobacco products, smokes one-half pack cigarettes per day, Smoking status: Patient uses tobacco products, smokes one-half pack cigarettes per day. - Ebola Screening: : Patient negative for fever greater than or equal to 101.5 degrees Fahrenheit, and additional compatible Ebola Virus Disease symptoms Patient denies exposure to infectious person Patient denies travel to an Ebola-affected area in the 21 days before illness onset No symptoms or risks identified at this time Patient denies exposure to infectious person Patient denies travel to an Ebola-affected area in the 21 days before illness onset. Screenin:31 Abuse screen: Denies threats or abuse. Nutritional screening: No deficits noted. ae1 Tuberculosis screening: No symptoms or risk factors identified. Fall Risk None identified. Assessment: 18:28 General: Appears in no apparent distress. comfortable, unkempt, Behavior is calm, ae1 cooperative. Pain: Complains of pain in left Achilles. Neuro: Level of Consciousness is awake, alert, obeys commands, Oriented to person, place, time, situation. Cardiovascular: Patient's skin is warm and dry. Respiratory: Airway is patent Respiratory effort is even, unlabored, Respiratory pattern is regular, symmetrical. GI: Abdomen is round obese. : No signs and/or symptoms were reported regarding the genitourinary system. EENT: No signs and/or symptoms were reported regarding the EENT system. Derm: dried healing abrasion to the left posterior ankle area. Musculoskeletal: Range of motion: intact in all extremities. Injury Description: Abrasion sustained to left Achilles. Vital Signs: 18:31 BP 151 / 101; Pulse 82; Resp 14; Temp 98.9(O); Pulse Ox 97% on R/A; Weight 99.79 kg; ss Height 5 ft. 9 in. (175.26 cm); Pain 6/10; 19:02 BP 134 / 74; ae1 18:31 Body Mass Index 32.49 (99.79 kg, 175.26 cm) ED Course: 18:15 Patient arrived in ED. rg4 18:25 Aneesh Gonzales PA is PHCP. cp 18:25 Josh Brink MD is Attending Physician. cp 18:25 Genaro Whittington, CANDE is Primary Nurse. ae1 18:30 Triage completed. 18:30 Bed in low position. Call light in reach. Side rails up X 1. Pulse ox on. NIBP on. ae1 18:31 Arm band placed on right wrist. ae1 19:14 No provider procedures requiring assistance completed. Patient did not have IV access ae1 during this emergency room visit. 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 Exp: ae1 07/04/2019. Lot #: [id number]. } Route: IM; Site: right deltoid; 19:02 Follow up: Response: No adverse reaction ae1 Outcome: 18:39 Discharge ordered by . cp 19:15 Discharged to home ambulatory. ae1 19:15 Condition: stable 19:15 Discharge instructions given to patient, Instructed on discharge instructions, follow up and referral plans. medication usage, Demonstrated understanding of instructions, Prescriptions given X 1. 19:15 Patient left the ED. ae1 Signatures: Ignacia Torres, RN RN ss Aneesh Gonzlaes PA PA cp Elliott, Andrea, RN RN ae1 Johanna Parsons rg4
--- NOTE | 2018-05-09 18:40 | EDPHYS ---
Physician Documentation [facility] Name: Johan Moreno Age: 38 yrs Sex: Male : 1980 Arrival Date: 05/09/2018 Time: 18:15 Bed 5 Private MD: ED Physician Josh Brink HPI: 05/09 18:33 This 38 yrs old Black Male presents to ER via Ambulatory with complaints of Laceration cp To Foot. 18:33 The patient has a laceration The injury was accidental, struck by push cart to heel cp area of left foot. Onset: The symptoms/episode began/occurred yesterday. Associated signs and symptoms: Pertinent negatives: heavy bleeding, suspected foreign body. Historical: - Allergies: 18:31 Toradol; ss - Home Meds: 18:31 None [Active]; ss - PMHx: 18:31 Crohn's; ss - PSHx: 18:31 Bowel resection; ss - Immunization history:: Adult Immunizations up to date. - Social history:: Smoking status: Patient uses tobacco products, smokes one-half pack cigarettes per day, Smoking status: Patient uses tobacco products, smokes one-half pack cigarettes per day. - Ebola Screening: : Patient negative for fever greater than or equal to 101.5 degrees Fahrenheit, and additional compatible Ebola Virus Disease symptoms Patient denies exposure to infectious person Patient denies travel to an Ebola-affected area in the 21 days before illness onset No symptoms or risks identified at this time Patient denies exposure to infectious person Patient denies travel to an Ebola-affected area in the 21 days before illness onset. ROS: 18:34 Constitutional: Negative for body aches, chills, fever. cp 18:34 Skin: Positive for laceration(s), of the heel area of left foot. 18:34 Neuro: Negative for numbness. 18:34 All other systems are negative. Exam: 18:36 Head/Face: Normocephalic, atraumatic. cp 18:36 Constitutional: The patient appears in no acute distress, alert, awake, well developed, well nourished. 18:36 Eyes: Periorbital structures: appear normal, Conjunctiva: normal, Lids and lashes: appear normal, bilaterally. 18:36 ENT: External ear(s): are unremarkable, Nose: is normal, Mouth: is normal. 18:36 Chest/axilla: Inspection: normal. 18:36 Cardiovascular: Rate: normal. 18:36 Respiratory: the patient does not display signs of respiratory distress, Respirations: normal, no use of accessory muscles, no retractions, no splinting, no tachypnea. 18:36 Abdomen/GI: Exam negative for discomfort, distension, guarding, Inspection: abdomen appears normal. 18:36 Skin: injury, avulsion(s), A moderate sized of the heel area of left foot, noted mild swelling, mild erythema. Vital Signs: 18:31 BP 151 / 101; Pulse 82; Resp 14; Temp 98.9(O); Pulse Ox 97% on R/A; Weight 99.79 kg; ss Height 5 ft. 9 in. (175.26 cm); Pain 6/10; 19:02 BP 134 / 74; ae1 18:31 Body Mass Index 32.49 (99.79 kg, 175.26 cm) ss MDM: 18:27 Patient medically screened. cp 18:30 Differential diagnosis: superficial laceration, cellulitis, abscess. cp 18:38 Data reviewed: vital signs, nurses notes. cp 05/09 18:36 Order name: Wound dressing: please clean and dress wound; Complete Time: 18:44 cp Administered Medications: 18:45 Drug: Tetanus-Diphtheria Toxoid Adult 0.5 ml {Re Dye Hand: [employer]. Exp: ae1 07/04/2019. Lot #: [id number]. } Route: IM; Site: right deltoid; 19:02 Follow up: Response: No adverse reaction ae1 Disposition: 19:30 Chart complete. Disposition: 05/09/18 18:39 Discharged to Home. Impression: Laceration without foreign body of foot - Left Heel. - Condition is Stable. - Discharge Instructions: Laceration Care, Adult. - Prescriptions for Keflex 500 mg Oral Capsule - take 1 capsule by ORAL route every 8 hours for 7 days; 21 capsule. - Medication Reconciliation Form, Thank You Letter, Antibiotic Education, Prescription Opioid Use, Work release form form. - Follow up: Private Physician; When: 48 Hours; Reason: Wound Recheck. - Problem is new. - Symptoms have improved. Addendum: 05/16/2018 08:01 Co-signature as Attending Physician, Josh Brink MD I agree with the assessment and k dr plan of care. Signatures: Josh Brink MD MD [facility] Ignacia Torres RN RN ss Aneesh Gonzales PA PA cp Genaro Whittington RN RN ae1 Corrections: (The following items were deleted from the chart) 05/09 19:15 18:39 05/09/2018 18:39 Discharged to Home. Impression: Laceration without foreign body ae1 of foot - Left Heel. Condition is Stable. Forms are Medication Reconciliation Form, Thank You Letter, Antibiotic Education, Prescription Opioid Use. Follow up: Private Physician; When: 48 Hours; Reason: Wound Recheck. Problem is new. Symptoms have improved. cp
[2018-05-09] MEDS ORDERED: TETANUS & DIPHTHERIA TOX,ADULT 0.5 ML VIAL ONE (18:44)
== END 2018-05-09 19:15 | disposition home or self-care (01) ==
LOC: ER 18:13
DX: S91.312A Laceration without foreign body, left foot, initial encounter (principal); W45.8XXA Other foreign body or object entering through skin, initial encounter; Y93.9 Activity, unspecified; Y92.9 Unspecified place or not applicable; Y99.9 Unspecified external cause status; Z23 Encounter for immunization; Z88.6 Allergy status to analgesic agent; F17.210 Nicotine dependence, cigarettes, uncomplicated
CPT/HCPCS: 90714; 99283

== ENCOUNTER 2018-06-08 10:27 | Inpatient (IN) | payer OTHER, SELFPAY ==
--- OUTSIDE RECORDS SUMMARY | 2018-06-08 10:29 | XMS REPORT | Clinical Summary ---
:1980 Author Organization [facility] Address [address] [place] [address] Care Team Providers Name Role Phone Asked, [...] unspecified MD [place] location (Primary Dx) after 06/07/2017 Social History Tobacco Use Types Packs/Day Years Used Date Current Some Day Smoker Cigarettes 1 Smokeless Tobacco: Never Used Tobacco Cessation: Ready to Quit: No; Counseling Given: No Alcohol Use Drinks/Week oz/Week Comments Yes occationally Sex Assigned at Date Recorded Not on file Last Filed Vital Signs Vital Sign Reading Time Taken Blood Pressure 109/77 09/03/2017 3:00 AM PLANNING COORDINATOR Pulse 89 09/03/2017 2:54 AM PLANNING COORDINATOR Temperature 36.7 C (98 F) 09/03/2017 1:08 AM PLANNING COORDINATOR Respiratory Rate 18 09/03/2017 2:54 AM PLANNING COORDINATOR Oxygen Saturation 99% 09/03/2017 2:54 AM PLANNING COORDINATOR Inhaled Oxygen Concentration - - Weight - - Height 180.3 cm (5' 11") 09/03/2017 1:08 AM PLANNING COORDINATOR Body Mass Index - - Plan of Treatment Health Maintenance Due Date Last Done Comments INFLUENZA VACCINE 05/15/2018 Procedures Procedure Name Priority Date/Time Associated Comments Diagnosis CT ABDOMEN PELVIS W STAT 09/03/2017 3:30 Results for this CONTRAST AM PLANNING COORDINATOR procedure are in the results section. URINALYSIS SCREEN AND STAT 09/03/2017 2:48 Results for this MICROSCOPY, WITH AM PLANNING COORDINATOR procedure are in REFLEX TO CULTURE the results section. URINE CULTURE STAT 09/03/2017 2:48 Results for this AM PLANNING COORDINATOR procedure are in the results section. URINE DRUGS OF ABUSE STAT 09/03/2017 2:47 Results for this SCREEN AM PLANNING COORDINATOR procedure are in the results section. ESTIMATED GFR STAT 09/03/2017 2:39 Results for this AM PLANNING COORDINATOR procedure are in the results section. ALCOHOL LEVEL, BLOOD STAT 09/03/2017 2:39 Results for this AM PLANNING COORDINATOR procedure are in the results section. LIPASE LEVEL STAT 09/03/2017 2:39 Results for this AM PLANNING COORDINATOR procedure are in the results section. COMPREHENSIVE STAT 09/03/2017 2:39 Results for this METABOLIC PANEL AM PLANNING COORDINATOR procedure are in the results section. HC COMPLETE BLD COUNT STAT 09/03/2017 2:39 Results for this W/AUTO DIFF AM PLANNING COORDINATOR procedure are in the results section. ESTIMATED [...] procedure are in the results section. after 06/07/[address] Abdomen Pelvis W Contrast (09/03/2017 [...] acute osseous abnormalities. CONCLUSION: No emergent findings. [facility]-[id number] Procedure Note Interface, Radiology Results Incoming - 09/03/2017 3:42 AM PLANNING COORDINATOR EXAMINATION: CT ABDOMEN PELVIS W CONTRAST CLINICAL [...] acute osseous abnormalities. CONCLUSION: No emergent findings. [facility]-[id number] Performing Organization Address City/[facility] Phone Number [facility] [address] [place] [address] Urinalysis screen and microscopy, with reflex to culture (09/03/2017 2:48 AM) Only the most recent of3 resultswithin the time period is included. Specimen site Clean catch [facility] DEPARTMENT OF PATHOLOGY AND GENOMIC MEDICINE Color, UA Straw [facility] DEPARTMENT OF PATHOLOGY AND GENOMIC MEDICINE Appearance, UA Clear [facility] DEPARTMENT OF PATHOLOGY AND GENOMIC MEDICINE Specific gravity, UA 1.017 1.001 - 1.035 [facility] DEPARTMENT OF PATHOLOGY AND GENOMIC MEDICINE pH, UA 5.0 5.0 - 8.5 [facility] DEPARTMENT OF PATHOLOGY AND GENOMIC MEDICINE Protein, UA Negative Negative [facility] DEPARTMENT OF PATHOLOGY AND GENOMIC MEDICINE Glucose, UA Negative Negative [facility] DEPARTMENT OF PATHOLOGY AND GENOMIC MEDICINE Ketones, UA Negative Negative [facility] DEPARTMENT OF PATHOLOGY AND GENOMIC MEDICINE Bilirubin, UA Negative Negative [facility] DEPARTMENT OF PATHOLOGY AND GENOMIC MEDICINE Blood, UA Small (A) Negative [facility] DEPARTMENT OF PATHOLOGY AND GENOMIC MEDICINE Nitrite, UA Negative Negative [facility] DEPARTMENT OF PATHOLOGY AND GENOMIC MEDICINE Urobilinogen, UA <2.0 <2.0 [facility] DEPARTMENT OF PATHOLOGY AND GENOMIC MEDICINE Leukocyte esterase, UA Negative Negative [facility] DEPARTMENT OF PATHOLOGY AND GENOMIC MEDICINE WBC, UA 1 0 - 1 /HPF [facility] DEPARTMENT OF PATHOLOGY AND GENOMIC MEDICINE RBC, UA 1 0 - 1 /HPF [facility] DEPARTMENT OF PATHOLOGY AND GENOMIC MEDICINE Bacteria, UA None seen None seen [facility] DEPARTMENT OF PATHOLOGY AND GENOMIC MEDICINE Yeast, UA None seen [facility] DEPARTMENT OF PATHOLOGY AND GENOMIC MEDICINE Yeast with pseudohyphae, UA None seen [facility] DEPARTMENT OF PATHOLOGY AND GENOMIC MEDICINE Specimen Urine Performing Organization Address City/[facility]/Zipcode Phone Number [facility] DEPARTMENT OF PATHOLOGY AND [address] [place] [phone] GENOMIC MEDICINE Urine culture (09/03/2017 2:48 AM)Only the most recent of3 resultswithin the time period is included. Urine culture SEE COMMENTComment: Bacteriuria [facility] DEPARTMENT OF PATHOLOGY screen negative. AND GENOMIC MEDICINE Performing Organization Address [facility] Phone Number [facility] DEPARTMENT OF PATHOLOGY AND [address] [place] [address] [facility] Urine drugs of abuse screen (09/03/2017 2:47 AM) Amphetamine screen, urine Negative [facility] DEPARTMENT OF PATHOLOGY AND GENOMIC MEDICINE Barbiturate screen, urine Negative [facility] DEPARTMENT OF PATHOLOGY AND GENOMIC MEDICINE Benzodiazepine screen, Negative [facility] DEPARTMENT OF urine PATHOLOGY AND GENOMIC MEDICINE Cannabinoid screen, urine Positive (A) [facility] DEPARTMENT OF PATHOLOGY AND GENOMIC MEDICINE Cocaine screen, urine Negative [facility] DEPARTMENT OF PATHOLOGY AND GENOMIC MEDICINE Methadone metabolite Negative [facility] DEPARTMENT OF (EDDP), urine PATHOLOGY AND GENOMIC MEDICINE Opiates screen, urine Positive (A) [facility] DEPARTMENT OF PATHOLOGY AND GENOMIC MEDICINE Oxycodone screen, urine Negative [facility] DEPARTMENT OF PATHOLOGY AND GENOMIC MEDICINE Phencyclidine screen, urine Negative [facility] DEPARTMENT OF PATHOLOGY AND GENOMIC MEDICINE Tricyclic screen, urine Negative [facility] DEPARTMENT OF Comment: PATHOLOGY AND GENOMIC Drug screen minimum concentration of detectability MEDICINE Hpukhvxssuof0942 ng/mL Barbiturates 200 ng/mL Qmfpuwyevpowbpm121 ng/mL Txpzrem909 ng/mL Fgzrjnuaa367 ng/mL Uwcfbcu555 ng/mL Exylnezqu956 ng/mL Phencyclidine 25 ng/mL Ylntkbaeyxxo56 ng/mL Hknyoahvws9359 ng/mL Negative test results indicates presumptive evidence of lack of clinically significant drug concentration in this urine specimen. Positive test results are presumptive evidence of clinically significant drug concentration in this urine specimen. Testing performed for medical purposes only. Specimen Urine Performing Organization Address [facility] Phone Number [facility] DEPARTMENT OF PATHOLOGY AND [address] [place] [phone] [facility] Estimated GFR (09/03/2017 2:39 AM)Only the most recent of3 resultswithin the time period is included. GFR Non Af Amer >90 mL/min/1.73 m2 [facility] DEPARTMENT OF PATHOLOGY AND GENOMIC MEDICINE GFR Af Amer >90 mL/min/1.73 m2 [facility] DEPARTMENT OF Comment: PATHOLOGY AND GENOMIC Chronic [...] specimen Performing Organization Address City/State/Zipcode Phone Number [facility] DEPARTMENT OF PATHOLOGY AND [address] [place] [address] [facility] CBC with platelet and differential (09/03/2017 2:39 AM)Only the most recent of3 resultswithin the time period is included. WBC 8.53 4.50 - 11.00 k/uL [facility] DEPARTMENT OF PATHOLOGY AND GENOMIC MEDICINE RBC 4.25 (L) 4.40 - 6.00 m/uL [facility] DEPARTMENT OF PATHOLOGY AND GENOMIC MEDICINE HGB 14.6 14.0 - 18.0 g/dL [facility] DEPARTMENT OF PATHOLOGY AND GENOMIC MEDICINE HCT 43.3 41.0 - 51.0 % [facility] DEPARTMENT OF PATHOLOGY AND GENOMIC MEDICINE MCV 101.9 (H) 82.0 - 100.0 fL [facility] DEPARTMENT OF PATHOLOGY AND GENOMIC MEDICINE MCH 34.4 (H) 27.0 - 34.0 pg [facility] DEPARTMENT OF PATHOLOGY AND GENOMIC MEDICINE MCHC 33.7 31.0 - 37.0 g/dL [facility] DEPARTMENT OF PATHOLOGY AND GENOMIC MEDICINE RDW - SD 46.2 37.0 - 55.0 fL [facility] DEPARTMENT OF PATHOLOGY AND GENOMIC MEDICINE MPV 8.7 (L) 8.8 - 13.2 fL [facility] DEPARTMENT OF PATHOLOGY AND GENOMIC MEDICINE Platelet count 192 150 - 400 k/uL [facility] DEPARTMENT OF PATHOLOGY AND GENOMIC MEDICINE Nucleated RBC 0.00 /100 WBC [facility] DEPARTMENT OF PATHOLOGY AND GENOMIC MEDICINE Neutrophils 93.7 (H) 39.0 - 69.0 % [facility] DEPARTMENT OF PATHOLOGY AND GENOMIC MEDICINE Lymphocytes 5.0 (L) 25.0 - 45.0 % [facility] DEPARTMENT OF PATHOLOGY AND GENOMIC MEDICINE Monocytes 0.6 0.0 - 10.0 % [facility] DEPARTMENT OF PATHOLOGY AND GENOMIC MEDICINE Eosinophils 0.1 0.0 - 5.0 % [facility] DEPARTMENT OF PATHOLOGY AND GENOMIC MEDICINE Basophils 0.1 0.0 - 1.0 % [facility] DEPARTMENT OF PATHOLOGY AND GENOMIC MEDICINE Immature granulocytes 0.5Comment: 0.0 - 1.0 % [facility] DEPARTMENT OF "Immature PATHOLOGY AND GENOMIC granulocytes" MEDICINE (promyelocytes, myelocytes, metamyelocytes) Specimen Blood Performing Organization Address [facility] Phone Number [facility] DEPARTMENT OF PATHOLOGY AND [address] [place] [address] MEDICINE Lipase level (09/03/2017 2:39 AM)Only the most recent of3 resultswithin the time period is included. Lipase 31 13 - 60 U/L [facility] DEPARTMENT OF PATHOLOGY AND GENOMIC MEDICINE Specimen Plasma specimen Performing Organization Address City/[facility] Phone Number [facility] DEPARTMENT OF PATHOLOGY AND [address] [place] [address] Alcohol level, blood (09/03/2017 2:39 AM) Alcohol None Detected mg/dL [facility] DEPARTMENT OF PATHOLOGY Comment: AND [facility] MEDICINE Normal None Detected Legal Intoxication in [place]80 mg/dL (0.08%) - Whole Blood Toxic Nlbnkyqveqtik308 mg/dL (0.2%) Potentially Win[place]533 - 500 mg/dL (0.35 - 0.5%) Alcohol percent None Detected % [facility] DEPARTMENT OF PATHOLOGY AND GENOMIC MEDICINE Specimen Plasma specimen Performing Organization Address [facility] Phone Number [facility] DEPARTMENT OF PATHOLOGY AND [address] [place] [address] [phone] [facility] MEDICINE Comprehensive metabolic panel (09/03/2017 2:39 AM)Only the most recent of3 resultswithin the time period is included. Sodium 137 135 - 148 mEq/L [facility] DEPARTMENT OF PATHOLOGY AND GENOMIC MEDICINE Potassium 4.2 3.5 - 5.0 mEq/L [facility] DEPARTMENT OF PATHOLOGY AND GENOMIC MEDICINE Chloride 102 98 - 112 mEq/L [facility] DEPARTMENT OF PATHOLOGY AND GENOMIC MEDICINE CO2 20 (L) 24 - 31 mEq/L [facility] DEPARTMENT OF PATHOLOGY AND GENOMIC MEDICINE Anion gap 15 7 - 15 mEq/L [facility] DEPARTMENT OF Comment: PATHOLOGY AND GENOMIC Starting from January , anion gap calculation MEDICINE no longer incorporates potassium. Please note the change. BUN 7 6 - 20 mg/dL [facility] DEPARTMENT OF PATHOLOGY AND GENOMIC MEDICINE Creatinine 0.9 0.7 - 1.2 mg/dL [facility] DEPARTMENT OF PATHOLOGY AND GENOMIC MEDICINE Glucose 121 (H) 65 - 99 mg/dL [facility] DEPARTMENT OF PATHOLOGY AND GENOMIC MEDICINE Calcium 9.1 8.3 - 10.2 mg/dL [facility] DEPARTMENT OF PATHOLOGY AND GENOMIC MEDICINE Protein 7.6 6.3 - 8.3 g/dL [facility] DEPARTMENT OF Comment: PATHOLOGY AND GENOMIC 4.6-7.0 g/dL MEDICINE 1 week 4.4-7.6 g/dL 7 months-1year5.1-7.3 g/dL 1-2 years5.6-7.5 g/dL >3 years6.0-8.0 g/dL 18-150 6.3-8.3 g/dL Albumin 4.1 3.5 - 5.0 g/dL [facility] DEPARTMENT OF PATHOLOGY AND GENOMIC MEDICINE A/G ratio 1.2 0.7 - 3.8 [facility] DEPARTMENT OF PATHOLOGY AND GENOMIC MEDICINE Alkaline phosphatase 72 40 - 129 U/L [facility] DEPARTMENT OF PATHOLOGY AND GENOMIC MEDICINE AST 22 10 - 50 U/L [facility] DEPARTMENT OF PATHOLOGY AND GENOMIC MEDICINE ALT 20 5 - 50 U/L [facility] DEPARTMENT OF PATHOLOGY AND GENOMIC MEDICINE Total bilirubin 0.6 0.0 - 1.2 mg/dL [facility] DEPARTMENT OF PATHOLOGY AND GENOMIC MEDICINE Specimen Plasma specimen Performing Organization Address [facility] Phone Number [facility] DEPARTMENT OF PATHOLOGY AND [address] [place] [address] GENOMIC MEDICINE Lactic acid level (06/19/2017 12:48 PM) Lactic acid 1.5 0.5 - 2.2 mmol/L [facility] DEPARTMENT OF PATHOLOGY AND GENOMIC MEDICINE Specimen Plasma specimen Performing Organization Address [facility] Phone Number [facility] DEPARTMENT OF PATHOLOGY AND [address] [place], [place] [phone] GENOMIC MEDICINE Amylase level (06/19/2017 12:48 PM) Amylase 43 13 - 53 U/L [facility] DEPARTMENT OF PATHOLOGY AND GENOMIC MEDICINE Specimen Plasma specimen Performing Organization Address [facility] Phone Number [facility] DEPARTMENT OF PATHOLOGY AND [address] [place], [place] [phone] GENOMIC MEDICINE after 06/07/2017 Insurance Payer Benefit Plan / Group Subscriber ID Type Phone Address [facility] xxxxxxxxxxxxx HMO [phone] [place] [phone]
--- OUTSIDE RECORDS SUMMARY | 2018-06-08 10:29 | XMS REPORT | Clinical Summary ---
:1980 Author Organization [facility] Address [address] [place] [address] Phone Care Team Providers Name Role Phone Unavailable Primary Care Provider Unavailable Allergies Active Allergy Reactions Severity Noted Date Comments Ketorolac Rash Low 06/04/2017 Current Medications Prescription Sig. Disp. Refills Start Date End Date Status ibuprofen Take 1 tablet 25 tablet 0 06/04/2017 06/14/2017 (ADVIL,MOTRIN) 600 MG (600 mg total) tablet by mouth every 6 (six) hours as needed for up to 10 days. methocarbamol Take 1 tablet 20 tablet 0 06/04/2017 06/14/2017 (ROBAXIN) 500 MG (500 mg total) tablet by mouth 2 (two) times daily for 10 days. ciprofloxacin HCl Take 1 tablet 14 tablet 0 06/04/2017 06/11/2017 (CIPRO) 500 MG tablet (500 mg total) by mouth 2 (two) times daily for 7 days. dicyclomine (BENTYL) Take 1 tablet 20 tablet 0 06/04/2017 06/04/2018 20 mg tablet (20 mg total) by mouth 2 (two) times daily. Active Problems Not on file Social History Tobacco Use Types Packs/Day Years Used Date Current Every Day Smoker Cigarettes Smokeless Tobacco: Current User Alcohol Use Drinks/Week oz/Week Comments Yes Sex Assigned at Date Recorded Not on file Last Filed Vital Signs Not on file Plan of Treatment Not on file Results Not on fileafter 06/07/2017
--- OUTSIDE RECORDS SUMMARY | 2018-06-08 10:31 | XMS REPORT | Continuity of Care Document ---
:1980 Author Organization Interface Problems Problem Status Onset Classification Date Comments Source Date Reported Discharge 07/11/20 07/14/2017 [facility] Diagnosis: 17 [facility] Inflammatory Center bowel disease STOMACH PAIN Active 07/11/[address] Discharge 06/24/20 06/27/2017 [facility] Diagnosis: [address] [place] [address] Abdominal pain Center, in male [place] ABD PAIN Active 06/24/[address],[facility] Discharge 06/18/20 06/21/2017 [facility] Diagnosis: 17 Medical History of Center inflammatory bowel disease Discharge 06/18/20 06/21/2017 [facility] Diagnosis: 17 Medical Abdominal pain, [place] LLQ ADOMINAL PAIN Active 06/17/[address] Discharge 06/06/20 06/09/2017 [facility] Diagnosis: 17 Drug-seeking behavior ABDOMINAL PAIN Active 06/06/[address] [place] Discharge 06/05/20 06/08/2017 [facility] [facility] Diagnosis: 17 City Accidental fall Discharge 06/05/20 06/08/2017 [facility] Diagnosis: Rib 17 City pain RIB PAIN Active 06/05/[address] Discharge 06/04/20 06/07/2017 [facility] Diagnosis: 17 Abdominal pain, acute, generalized Discharge 06/04/20 06/07/2017 [facility] Diagnosis: 17 Diarrhea Discharge 06/04/20 06/07/2017 [facility] Diagnosis: 17 Nausea & vomiting Crohn disease Resolved Problem 07/14/2017 [facility] Crohn disease Resolved Problem 06/09/2017 [facility] Medications Medication Details Route Status Patient Ordering Order Source Instructions Provider Date mesalamine 500 1,000 mg=2 Active 07/12/ [place] MG Extended cap, PO, 2017 Medical Release Capsule QID, # 112 Center cap, 0 Refill(s) Acetaminophen 1 - 2 tab, Active 07/12/ [facility] 300 MG / Codeine PO, Q6H, PRN 2017 Medical Phosphate 30 MG Pain, X 3 Center Oral Tablet day, # 20 [Tylenol with tab, 0 Codeine #3] Refill(s) Ondansetron 4 MG 4 mg=1 tab, Active [facility] Disintegrating PO, BID, PRN 2017 Medical Tablet [Zofran] Nausea and Center Vomiting, Dissolve tab under tongue, # 10 tab, 0 Refill(s) Metoclopramide 10 mg, 2 mL, Inactive [facility] Route: IVP, 2016 Medical Drug form: [place] INJ, ONCE, Dosing Weight 93.182, kg, Priority: STAT, Start date: 07/11/17 18:09:00 CDT, Stop date: 07/11/17 18:09:00 CDTNotes: (Same as: Reglan) Morphine 4 mg, 1 mL, Inactive [facility] Route: IVP2016 Medical Drug form: [place] SOLN, ONCE, Dosing Weight 93.182, kg, Priority: STAT, Start date: 07/11/17 18:08:00 CDT, Stop date: 07/11/17 18:08:00 CDTNotes: (Same as:MORPhine Sulfate) Acetaminophen 1 tab, Inactive [facility] 325 MG / Route: PO, 2016 Medical Hydrocodone Drug Form: [place] Bitartrate 5 MG TAB, Dosing Oral Tablet Weight 93.182, kg, ONCE, STAT, Start date: 07/11/17 17:58:00 CDT, Stop date: 07/11/17 17:58:00 CDTNotes: (Same as: Buhl 325/5) Do not exceed 4gm/day of acetaminophe n. Zofran ODT 4 mg, 1 tab, Inactive [facility] Route: PO, 2016 Medical Drug form: [place] TABDIS, ONCE, Dosing Weight 93.182, kg, Priority: STAT, Start date: 07/11/17 17:19:00 CDT, Stop date: 07/11/17 17:19:00 CDTNotes: (Same as: Zofran ODT) Acetaminophen 1 tab, Inactive [facility] 325 MG / Route: PO, 2017 Medical Hydrocodone Drug Form: [place] Bitartrate 5 MG TAB, Dosing Oral Tablet Weight 93.182, kg, ONCE, STAT, Start date: 07/11/17 17:19:00 CDT, Stop date: 07/11/17 17:19:00 CDTNotes: (Same as: Buhl 325/5) Do not exceed 4gm/day of acetaminophe n. Zofran ODT 4 mg, 1 tab, Inactive [facility] Route: PO, 2016 Medical Drug form: Center [...] Route: PO, 2017 Medical Hydrocodone Drug Form: [place] Bitartrate 5 MG TAB, Dosing Oral Tablet Weight [Buhl 5/325] 93.182, kg, ONCE, STAT, Start date: 06/24/17 5:06:00 CDT, Stop date: 06/24/17 5:06:00 CDTNotes: (Same as: Buhl 325/5) Do not exceed 4gm/day of acetaminophe n. Dilaudid 0.5 mg, 0.25 Inactive [facility] mL, Route: 2017 Medical IVP, Drug Center form: INJ, ONCE, Dosing Weight 93.182, kg, Priority: STAT, Start date: 06/24/17 5:05:00 CDT, Stop date: 06/24/17 5:05:00 CDTNotes: Same as: Dilaudid Morphine 6 mg, Route: Inactive [facility] IVP, ONCE, 2017 Medical Dosing Center Weight 93.182, kg, Priority: STAT, Start date: 06/24/17 3:35:00 CDT, Stop date: 06/24/17 3:35:00 CDT Zofran 4 mg, Route: Inactive [facility] IVP, Drug 2017 Medical form: INJ, Center [...] 0.9% 1000 ml INJ Rate: 1,000 2017 [facility] 1,000 mL ml/hr, [place] Infuse over: 1 hr, Route: IV, Dosing [...] [place] Route: IVP, 2017 Medical Drug Form: [place] SOLN, Dosing Weight 93.182, kg, ONCALL, STAT, Start date: 06/18/17 1:04:00 CDT, Duration: 1 doses or times, Dose=2.2ml/k g, Max [id number] -- "To be infused by Radiology Staff ONLY"Notes: (same as:Omnipaque 350). WASTE: F/P - Black; E - [employer] Ondansetron 4 mg, 2 mL, No Longer [place] Route: IVP, Active 2016 Medical Drug form: [place] INJ, ONCE, Dosing Weight 93.182, kg, Priority: STAT, Start date: 06/17/17 23:53:00 CDT, Stop date: 06/17/17 23:53:00 CDTNotes: (Same as: Zofran) MEDICATION WASTE Product Size: 4 mg Product Wasted: ___ mg Morphine 4 mg, 1 mL, No Longer [place] Route: IVP, Active 2016 [facility] Drug form: [place] SOLN, ONCE, Dosing Weight 93.182, kg, Priority: STAT, Start date: 06/17/17 23:53:00 CDT, Stop date: 06/17/17 23:53:00 CDTNotes: (Same as:MORPhine Sulfate) Morphine 6 mg, Route: Inactive IVP, ONCE, 2016 [place] Dosing Weight 100, kg, Priority: STAT, Start date: 06/06/17 15:04:00 CDT, Stop date: 06/06/17 15:04:00 CDT Morphine 4 mg, 1 mL, Inactive Route: IVP, 2016 [place] Drug form: SOLN, ONCE, Dosing Weight 100, kg, Priority: STAT, Start date: 06/06/17 14:29:00 CDT, Stop date: 06/06/17 14:29:00 CDTNotes: (Same as: MORPhine Sulfate) NS (Bolus) IV 1,000 mL, Inactive 1,000 ml/hr, 2016 [place] Infuse Over: 1 hr, Route: IV, 1,000, Drug form: INJ, ONCE, Priority: STAT, Dosing Weight 100 kg, Start date: 06/06/17 14:29:00 CDT, Duration: 1 doses or times, Stop date: 06/06/17 14:29:00 CDT Zofran 4 mg, 2 mL, Inactive Route: IVP, 2016 [place] Drug form: INJ, ONCE, Dosing Weight 100, kg, Priority: STAT, Start date: 06/06/17 14:29:00 CDT, Stop date: 06/06/17 14:29:00 CDTNotes: (Same as: Zofran) MEDICATION WASTE Product Size: 4 mg Product Wasted: ___ mg sodium chloride 1,000 mL, Inactive 0.9% 1000 ml INJ Rate: 1,000 2016 [place] 1,000 mL ml/hr, Infuse over: 1 hr, [...] MG / Codeine PO, Q4H, PRN 2017 [facility] Phosphate 30 MG Pain, X 4 City Oral Tablet day, # 36 [Tylenol with tab, 0 Codeine #3] Refill(s) Morphine 6 mg, 0.6 Inactive mL, Route: 2016 [facility] IM, Drug City form: INJ, ONCE, Dosing Weight 93.182, kg, Priority: STAT, Start date: 06/05/17 4:29:00 CDT, Stop date: 06/05/17 4:29:00 CDTNotes: (Same as:MORPhine Sulfate) Albuterol 0.833 3 mL, Route: Inactive MG/ML / NEB, Drug 2016 [facility] Ipratropium Form: SOLN [facility] 0.167 Dosing MG/ML Inhalant Weight Solution 93.182, kg, QID, STAT, Start date: 06/05/17 4:29:00 CDT, Duration: 30 day, Stop date: 07/04/17 21:00:00 CDTNotes: (Same as: Duoneb) Acetaminophen 1 tab, Inactive 325 MG / Route: PO, 2016 [facility] Hydrocodone Drug Form: [facility] Bitartrate 5 MG TAB, Dosing Oral Tablet Weight 93.182, kg, ONCE, STAT, Start date: 06/05/17 4:20:00 CDT, Stop date: 06/05/17 4:20:00 CDT Acetaminophen 1 tab, Inactive 06/04[facility] 325 MG / Route: PO, 2016 [facility] Hydrocodone Drug Form: Bitartrate 5 MG TAB, Dosing Oral Tablet Weight 79.545, kg, ONCE, STAT, Start date: 06/04/17 13:17:00 CDT, Stop date: 06/04/17 13:17:00 CDT Ondansetron 4 MG 4 mg=1 tab, Active Oral Tablet PO, BID, # 2017 [facility] [Zofran] 10 tab, 0 Refill(s) Acetaminophen 1 tab, PO, Active 300 MG / Codeine Q6H, PRN 2016 [facility] Phosphate 30 MG Pain, X 7 Oral Tablet day, # 28 [Tylenol with tab, 0 Codeine #3] Refill(s) Morphine 2 mg, Route: Inactive IVP, ONCE, 2016 [facility] Dosing Weight 79.545, kg, Priority: STAT, Start date: 06/04/17 10:31:00 CDT, Stop date: 06/04/17 10:31:00 CDT Omnipaque 300 85 mL, Inactive injectable Route: IVP2016 [facility] solution Drug Form: SOLN, Dosing Weight 79.545, kg, ONCALL, GFR > 45 mL/min, STAT, Start date: 06/04/17 9:19:00 CDT, Duration: 1 doses or timesNotes: (Same as:Omnipaque 300). WASTE: F/P - Black; E - [employer] [facility] Morphine 4 mg, 1 mL, Inactive Route: IVP2016 [facility] Drug form: SOLN, ONCE, Dosing Weight 79.545, kg, Priority: STAT, Start date: 06/04/17 8:39:00 CDT, Stop date: 06/04/17 8:39:00 CDTNotes: (Same as:MORPhine Sulfate) Ondansetron 4 mg, 2 mL, Inactive Route: IVP2016 [facility] Drug form: INJ, ONCE, Dosing Weight 79.545, kg, Priority: STAT, Start date: 06/04/17 8:39:00 CDT, Stop date: 06/04/17 8:39:00 CDTNotes: (Same as: Zofran) MEDICATION WASTE Product Size: 4 mg Product Wasted: ___ mg Allergies, Adverse Reactions, Alerts Substance Category Reaction Severity Reaction Status Date Comments Source type Reported NKDA Assertion Drug Active [facility] Toradol Assertion Drug Active [facility] Immunizations Immunization Date Given Site Status Last Updated Comments Source Results Order Name Results Value Reference Date Interpretation Comments Source Range CHEM PANEL eGFR 126 07/11 Result Comment: The eGFR is calculated using the CKD-EPI formula. In most young, healthy individuals the eGFR will be >90 mL/ min/1.73m2. The eGFR declines with age. An eGFR of 60-89 may be normal in [facility] mL/min/1. some populations, particularly the elderly, for whom the CKD-EPI formula has not been extensively validated. Use of the eGFR is not recommended in the following populations: [address] Individuals with unstable creatinine concentrations, including [...] CO2 24 meq/L 24 - 32 07/[address] CHEM PANEL Calcium Lvl 9.3 mg/dL 8.5 - 10.5 07/[address] CHEM PANEL Potassium 4.4 meq/L 3.5 - 5.1 07/11 [facility] CHEM PANEL Chloride Lvl 106 meq/L 95 - 109 07/[address] CHEM PANEL Sodium Lvl 138 meq/L 135 - 145 07/[address] CHEM PANEL Creatinine 0.91 mg/dL 0.50 - 07/11 [facility] Lvl 1.40 [facility] CHEM PANEL BUN 10 mg/dL 7 - 22 07/[address] CHEM PANEL Glucose Lvl 94 mg/dL 70 - 99 07/[address] CHEM PANEL AGAP 12.4 meq/L 10.0 - 07/11 [facility] 20.0 [facility] CHEM PANEL Bili Direct 0.1 mg/dL 0.0 - 0.3 07/[address] CHEM PANEL Globulin 3.6 g/dL 2.7 - 4.2 07/[address] CHEM PANEL A/G Ratio 1.1 0.7 - 1.6 07/[address] CHEM PANEL Bili Total 0.7 mg/dL 0.2 - 1.3 07/[address] CHEM PANEL Alk Phos 62 unit/L 39 - 136 07/[address] CHEM PANEL Bili 0.6 mg/dL 0.0 - 1.0 07/11 [facility]2016 [facility] CHEM PANEL AST 31 unit/L 0 - 37 07/[address] CHEM PANEL ALT 37 unit/L 0 - 65 07/[address] CHEM PANEL Total 7.6 g/dL 6.4 - 8.4 07/11 [facility]2016 [facility] CHEM PANEL Albumin Lvl 4.0 g/dL 3.5 - 5.0 07/[address] HEMATOLOGY Eosinophils 0.1 K/CMM 0.0 - 0.5 07/11 [facility]2016 [facility] HEMATOLOGY Basophils # 0.1 K/CMM 0.0 - 0.2 07/[address] HEMATOLOGY Macrocyte 1+ None [facility]en [facility]07[facility] 5:26 PM[facility] HEMATOLOGY Lymphocytes 1.2 K/CMM 1.0 - 5.5 07/[address] HEMATOLOGY Monocytes # 0.5 K/CMM 0.0 - 0.8 07/[address] HEMATOLOGY Basophils 0.7 % 0.0 - 1.0 07/[address] HEMATOLOGY Segs-Bands # 5.8 K/CMM 1.5 - 8.1 07/[address] HEMATOLOGY Lymphocytes 15.6 % 20.0 - 07/11 [facility] 40.0 [facility] HEMATOLOGY Segs 75.9 % 45.0 - 07/11 [facility] 75.0 [facility] HEMATOLOGY Eosinophils 0.9 % 0.0 - 4.0 07/[address] HEMATOLOGY Monocytes 6.9 % 2.0 - 12.0 07/[address] HEMATOLOGY MPV 6.9 fL 7.4 - 10.4 07/[address] HEMATOLOGY MCHC 33.7 g/dL 32.0 - 07/11 36.0 [facility] HEMATOLOGY RDW 13.8 % 11.5 - 07/11 14. [facility] HEMATOLOGY Platelet 211 K/CMM 133 - 450 07/11 [facility] HEMATOLOGY MCV 102.7 fL 80.0 - 07/11 94.0 [facility] HEMATOLOGY MCH 34.6 pg 27.0 - 07/11 31.0 [facility] HEMATOLOGY Hct 41.2 % 42.0 - 07/11 [place] 54.0 [facility] HEMATOLOGY Hgb 13.9 g/dL 14.0 - 07/11 [facility] 18.0 [facility] HEMATOLOGY WBC 7.6 K/CMM 3.7 - 10.4 07/11 [facility] HEMATOLOGY RBC 4.01 M/CMM 4.70 - 07/11 6. [facility] CHEM PANEL eGFR 129 06/24 Result Comment: The eGFR is calculated using the CKD-EPI formula. In most young, healthy individuals the eGFR will be >90 mL/ min/1.73m2. The eGFR declines with age. An eGFR of 60-89 may be normal in [facility] mL/min/1. some populations, particularly the elderly, for whom the CKD-EPI formula has not been extensively validated. Use of the eGFR is not recommended in the following populations: [address] Individuals with unstable creatinine concentrations, including [...] Lvl 9.0 mg/dL 8.5 - 10.5 06/24 [facility] CHEM PANEL CO2 25 meq/L 24 - 32 06/24 [facility] CHEM PANEL Chloride Lvl 104 meq/L 95 - 109 06/24 [facility] CHEM PANEL Potassium 3.7 meq/L 3.5 - 5.1 06/24 [facility] CHEM PANEL Creatinine 0.87 mg/dL 0.50 - 06/24 [facility] 1.40 /2016 [facility] CHEM PANEL Sodium Lvl 140 meq/L 135 - 145 06/[address] CHEM PANEL BUN 10 mg/dL 7 - 22 06/[address] CHEM PANEL Glucose Lvl 92 mg/dL 70 - 99 06/[address] CHEM PANEL AGAP 14.7 meq/L 10.0 - 09 [facility] 20.0 [facility] CHEM PANEL Lipase Lvl 412 unit/L 73 - 393 06/[address] CHEM PANEL Lactic Acid 0.8 mMol/L 0.5 - 2.2 06/24 [facility] /2016 [facility] CHEM PANEL Globulin 3.4 g/dL 2.7 - 4.2 06/[address] CHEM PANEL A/G Ratio 1.2 0.7 - 1.6 06/[address] CHEM PANEL Bili 0.7 mg/dL 0.0 - 1.0 06/24 [facility] CHEM PANEL Total 7.5 g/dL 6.4 - 8.4 06/24 [facility] CHEM PANEL Bili Direct 0.1 mg/dL 0.0 - 0.3 06/[address] CHEM PANEL AST 22 unit/L 0 - 37 06/[address] CHEM PANEL ALT 34 unit/L 0 - 65 06/[address] CHEM PANEL Alk Phos 70 unit/L 39 - 136 06/[address] CHEM PANEL Bili Total 0.8 mg/dL 0.2 - 1.3 06/[address] CHEM PANEL Albumin Lvl 4.1 g/dL 3.5 - 5.0 06/[address] HEMATOLOGY Eosinophils 0.2 K/CMM 0.0 - 0.5 06/24 [facility] /2016 [facility] HEMATOLOGY Lymphocytes 1.4 K/CMM 1.0 - 5.5 06/24 [facility] /2016 [facility] HEMATOLOGY Macrocyte 1+ None Seen 06/24 [facility] [address] [place], [place] [address] (06/24/17 3:36 AM) HEMATOLOGY Monocytes # 0.6 K/CMM 0.0 - 0.8 06/[address] HEMATOLOGY Segs-Bands # 3.7 K/CMM 1.5 - 8.1 06/24 [facility] HEMATOLOGY Basophils 0.5 % 0.0 - 1.0 06/24 [facility] HEMATOLOGY Eosinophils 3.1 % 0.0 - 4.0 06/24 [facility] HEMATOLOGY Monocytes 9.4 % 2.0 - 12.0 06/24 [facility] HEMATOLOGY Lymphocytes 24.2 % 20.0 - 06/24 [place] 40.0 [facility] HEMATOLOGY Segs 62.8 % 45.0 - 06/24 [place] 75.0 [facility] HEMATOLOGY MPV 6.3 fL 7.4 - 10.4 06/24 [facility] HEMATOLOGY RDW 14.3 % 11.5 - 06/24 [facility] 14.5 [facility] HEMATOLOGY Platelet 192 K/CMM 133 - 450 06/24 [facility] HEMATOLOGY MCHC 33.0 g/dL 32.0 - 06/24 36.0 [facility] HEMATOLOGY MCH 34.1 pg 27.0 - 06/24 31.0 [facility] HEMATOLOGY Hgb 13.3 g/dL 14.0 - 06/24 18.0 [facility] HEMATOLOGY Hct 40.4 % 42.0 - 06/24 54.0 [facility] HEMATOLOGY MCV 103.4 fL 80.0 - 06/24 [facility] 94.0 [facility] HEMATOLOGY WBC 5.9 K/CMM 3.7 - 10.4 06/24 [facility] HEMATOLOGY RBC 3.91 M/CMM 4.70 - 06/24 6.10 [facility] CHEM PANEL Lipase Lvl 291 unit/L 73 - 393 06/23 [facility] CHEM PANEL Alk Phos 73 unit/L 39 - 136 06/23 [facility] CHEM PANEL Bili Total 0.6 mg/dL 0.2 - 1.3 06/23 [facility] CHEM PANEL Total 7.6 g/dL 6.4 - 8.4 06/23 [facility] CHEM PANEL Albumin Lvl 4.1 g/dL 3.5 - 5.0 06/23 [facility] CHEM PANEL ALT 33 unit/L 0 - 65 06/[address] CHEM PANEL AST 18 unit/L 0 - 37 06/[address] CHEM PANEL eGFR 108 06/23 Result Comment: The eGFR is calculated using the CKD-EPI formula. In most young, healthy individuals the eGFR will be >90 mL/ min/1.73m2. The eGFR declines with age. An eGFR of 60-89 may be normal in [facility] mL/min/1.7 /2016 some populations, particularly the elderly, for whom the CKD-EPI formula has not been extensively validated. Use of the eGFR is not recommended in the following populations: [address] Individuals with unstable creatinine concentrations, including [...] Lvl 107 meq/L 95 - 109 06/[address] CHEM PANEL Calcium Lvl 9.1 mg/dL 8.5 - 10.5 06/[address] CHEM PANEL CO2 25 meq/L 24 - 32 06/[address] CHEM PANEL Potassium 4.0 meq/L 3.5 - 5.1 06/23 [facility] [address] [place] [address] CHEM PANEL Glucose Lvl 126 mg/dL 70 - 99 06/[address] CHEM PANEL BUN 10 mg/dL 7 - 22 06/[address] CHEM PANEL Creatinine 1.03 mg/dL 0.50 - 06/23 [facility] Lvl 1.40 [facility] CHEM PANEL Sodium Lvl 141 meq/L 135 - 145 06/[address] CHEM PANEL A/G Ratio 1.2 0.7 - 1.6 06/[address] CHEM PANEL Globulin 3.5 g/dL 2.7 - 4.2 06/[address] CHEM PANEL AGAP 13.0 meq/L 10.0 - 06/23 [place] 20.0 [facility] CHEM PANEL B/C Ratio 10 6 - 25 06/[address] HEMATOLOGY MCV 103.1 fL 80.0 - 06/23 [facility] 94.0 [facility] HEMATOLOGY MCH 34.3 pg 27.0 - 06/23 [facility] 31.0 [facility] HEMATOLOGY MCHC 33.3 g/dL 32.0 - 06/23 [facility] 36.0 [facility] HEMATOLOGY RDW 14.0 % 11.5 - 06/23 [facility] 14. [facility] HEMATOLOGY Platelet 207 K/CMM 133 - 450 06/23 [facility] HEMATOLOGY WBC 6.4 K/CMM 3.7 - 10.4 06/23 [facility] HEMATOLOGY MPV 6.5 fL 7.4 - 10.4 06/23 [facility] HEMATOLOGY RBC 4.13 M/CMM 4.70 - 06/23 [facility] 6.10 [facility] HEMATOLOGY Hgb 14.2 g/dL 14.0 - 06/23 [facility] 18.0 [facility] HEMATOLOGY Hct 42.6 % 42.0 - 06/23 [facility] 54.0 [facility] HEMATOLOGY Monocytes # 0.5 K/CMM 0.0 - 0.8 06/23 [facility] HEMATOLOGY Eosinophils 0.1 K/CMM 0.0 - 0.5 06/23 [facility] HEMATOLOGY Macrocyte 1+ None Seen 06/23 [facility] (06/23/17 2:25 PM) HEMATOLOGY Lymphocytes 19.8 % 20.0 - 06/23 [facility] 40.0 [facility] HEMATOLOGY Segs 69.0 % 45.0 - 06/23 [facility] 75.0 [facility] HEMATOLOGY Monocytes 8.5 % 2.0 - 12.0 06/23 [facility] HEMATOLOGY Eosinophils 2.3 % 0.0 - 4.0 06/[address] [place] [address] HEMATOLOGY Segs-Bands # 4.4 K/CMM 1.5 - 8.1 06/23 [facility] [address] [place] [address] HEMATOLOGY Lymphocytes 1.3 K/CMM 1.0 - 5.5 06/23 [facility] HEMATOLOGY Basophils 0.4 % 0.0 - 1.0 06/[address] CHEM PANEL Lipase Lvl 504 unit/L 73 - 393 06/[address] CHEM PANEL Bili 0.7 mg/dL 0.0 - 1.0 06/18 [facility] CHEM PANEL AST 19 unit/L 0 - 37 06/18 [facility]2016 [facility] CHEM PANEL Bili Total 0.8 mg/dL 0.2 - 1.3 06/18 [facility] CHEM PANEL Bili Direct 0.1 mg/dL 0.0 - 0.3 06/[address] CHEM PANEL Globulin 3.5 g/dL 2.7 - 4.2 06/18 [facility]2016 [facility] CHEM PANEL A/G Ratio 1.2 0.7 - 1.6 06/[address] CHEM PANEL Alk Phos 74 unit/L 39 - 136 06/18 [facility]2016 [facility] CHEM PANEL Albumin Lvl 4.1 g/dL 3.5 - 5.0 06/18 [facility] CHEM PANEL ALT 33 unit/L 0 - 65 06/[address] CHEM PANEL Total 7.6 g/dL 6.4 - 8.4 06/18 [facility] Protein [facility] CHEM PANEL Lactic Acid 1.7 mMol/L 0.5 - 2.2 06/18 [facility] ELECTROLYT AGAP 12.4 meq/L 10.0 - 06/18 [facility] ES 20.0 [facility] ELECTROLYT eGFR 126 06/18 Result Comment: The eGFR is calculated using the CKD-EPI formula. In most young, healthy individuals the eGFR will be >90 mL/ min/1.73m2. The eGFR declines with age. An eGFR of 60-89 may be normal in [facility] ES mL/min/1.7 some populations, particularly the elderly, for whom the CKD-EPI formula has not been extensively validated. Use of the eGFR is not recommended in the following populations: [address] Individuals with unstable creatinine concentrations, including [...] BUN 12 mg/dL 7 - 22 06/18 [facility] ES /2016 [facility] ELECTROLYT Glucose Lvl 108 mg/dL 70 - 99 06/18 [facility] ELECTROLYT Calcium Lvl 9.3 mg/dL 8.5 - 10.5 06/18 [facility] ELECTROLYT CO2 26 meq/L 24 - 32 06/18 [facility] ELECTROLYT Creatinine 0.91 mg/dL 0.50 - 06/18 [facility] ES Lvl 1.40 /2016 [facility] ELECTROLYT Chloride Lvl 106 meq/L 95 - 109 06/18 [facility] ELECTROLYT Sodium Lvl 140 meq/L 135 - 145 06/18 [facility] ELECTROLYT Potassium 4.4 meq/L 3.5 - 5.1 06/18 [facility] HEMATOLOGY Macrocyte 1+ None Seen 06/18 [facility] (06/18/17 12:13 AM) HEMATOLOGY Monocytes # 0.2 K/CMM 0.0 - 0.8 06/18 [facility] HEMATOLOGY Lymphocytes 0.7 K/CMM 1.0 - 5.5 06/18 [facility] HEMATOLOGY Basophils 0.6 % 0.0 - 1.0 06/18 [facility] HEMATOLOGY Monocytes 2.1 % 2.0 - 12.0 06/18 [facility] HEMATOLOGY Lymphocytes 8.4 % 20.0 - 06/18 40.0 [facility] HEMATOLOGY Segs-Bands # 7.3 K/CMM 1.5 - 8.1 06/[address] [place] [address] HEMATOLOGY Eosinophils 0.5 % 0.0 - 4.0 06/18 [facility] HEMATOLOGY Segs 88.4 % 45.0 - 06/18 75.0 [facility] HEMATOLOGY MPV 6.3 fL 7.4 - 10.4 06/18 [facility] HEMATOLOGY WBC 8.2 K/CMM 3.7 - 10.4 06/18 [facility] HEMATOLOGY Hct 39.6 % 42.0 - 06/18 [facility] 54.0 [facility] HEMATOLOGY RBC 3.90 M/CMM 4.70 - 06/18 [place] 6.10 [facility] HEMATOLOGY Hgb 13.5 g/dL 14.0 - 06/18 18.0 [facility] HEMATOLOGY RDW 14.0 % 11.5 - 06/18 [facility] 14.5 [facility] HEMATOLOGY MCV 101.6 fL 80.0 - 06/18 [facility] 94.0 [facility] HEMATOLOGY MCH 34.7 pg 27.0 - 06/18 [facility] 31.0 [facility] HEMATOLOGY Platelet 188 K/CMM 133 - 450 06/18 [facility] HEMATOLOGY MCHC 34.1 g/dL 32.0 - 06/18 [facility] 36.0 [facility] ED ED EXAM: CT ABDOMEN AND PELVIS WITH CONTRAST 06/18 - [facility] Abdomen/Pe Abdomen/Pelv /2016 - [facility] lvis IV is IV This report was dictated by a Upholstery Mechanic/ Fellow. I have personally reviewed the images [...] Lvl 192 unit/L 73 - 393 06/06 [facility] CHEM PANEL Globulin 3.5 g/dL 2.7 - 4.2 06/06 [facility] CHEM PANEL A/G Ratio 1.1 0.7 - 1.6 06/06 [facility] CHEM PANEL AGAP 6.3 meq/L 10.0 - 06/06 [facility] 20.0 [facility] CHEM PANEL B/C Ratio 14 6 - 25 06/06 [facility] CHEM PANEL eGFR 135 06/06 Result Comment: [...] is not recommended in the following populations: [address] Individuals with unstable creatinine concentrations, including [...] BUN 11 mg/dL 7 - 22 06/06 [facility] CHEM PANEL Alk Phos 71 unit/L 39 - 136 06/06 [facility] CHEM PANEL Glucose Lvl 91 mg/dL 70 - 99 06/06 [facility] CHEM PANEL ALANINE 21 unit/L 0 - 65 06/06 AMINOTRANS [facility] RASE CHEM PANEL Albumin Lvl 3.7 g/dL 3.5 - 5.0 06/06 [facility] CHEM PANEL Sodium Lvl 138 meq/L 135 - 145 06/06 [facility] CHEM PANEL Potassium 4.3 meq/L 3.5 - 5.1 06/06 MH Lvl [facility] CHEM PANEL Chloride Lvl 106 meq/L 95 - 109 06/06 [facility] CHEM PANEL Creatinine 0.78 mg/dL 0.50 - 06/06 MH Lvl 1.40 /2016 [facility] CHEM PANEL ASPARTATE 14 unit/L 0 - 37 06/06 [facility] CHEM PANEL Calcium Lvl 8.9 mg/dL 8.5 - 10.5 06/06 [facility] CHEM PANEL Bili Total 0.6 mg/dL 0.2 - 1.3 06/06 [facility] CHEM PANEL CO2 30 meq/L 24 - 32 06/06 [facility] CHEM PANEL Total 7.2 g/dL 6.4 - 8.4 06/06 [facility] HEMATOLOGY Eosinophils 0.1 K/CMM 0.0 - 0.5 06/06 [facility] HEMAT[facility]Y Monocytes # 0.5 K/CMM 0.0 - 0.8 06/06 [facility] HEMAT[facility] Basophils 0.7 % 0.0 - 1.0 06/06 [facility] HEMAT[facility] Eosinophils 2.0 % 0.0 - 4.0 06/06 [facility]EMAT[facility] Lymphocytes 1.6 K/CMM 1.0 - 5.5 06/06 [facility] HEMATOLOGY Segs 66.6 % 45.0 - 06/06 MH 75.0 [facility] HEMAT[facility]Y Lymphocytes 23.0 % 20.0 - 06/06 MH 40.0 [facility] HEMATOLOGY Segs-Bands # 4.7 K/CMM 1.5 - 8.1 06/06 [facility] HEMATOLOGY Monocytes 7.7 % 2.0 - 12.0 06/06 [facility] HEMAT[facility]Y Platelet 212 K/CMM 133 - 450 06/06 [facility] HEMAT[facility] MPV 6.2 fL 7.4 - 10.4 06/06 [facility]EMAT[facility] MCHC 34.8 g/dL 32.0 - 06/06 MH 36.0 [facility] HEMAT[facility] MCV 102.0 fL 80.0 - 06/06 MH 94.0 [facility] HEMAT[facility] MCH 35.5 pg 27.0 - 06/06 MH 31.0 [facility] HEMAT[facility] RDW 13.1 % 11.5 - 06/06 MH 14. [facility] HEMAT[facility] Hgb 14.1 g/dL 14.0 - 06/06 MH 18.0 [facility] HEMAT[facility]Y Hct 40.5 % 42.0 - 06/06 MH 54.0 [facility] HEMAT[facility] WBC X 10x3 7.0 K/CMM 3.7 - 10.4 06/06 [facility] HEMAT[facility] RBC X 10x6 3.97 M/CMM 4.70 - 06/06 MH 6.10 /2016 [facility] URINE AND UA Leuk Est Negative Negative 06/06 [facility] (06/06/17 1:55 PM) URINE AND UA Glucose Negative Negative 06/06 [facility] mg/dL mg/dL [facility] URINE AND UA Protein Negative Negative 06/06 [facility] mg/dL mg/dL [facility] URINE AND UA Ketones Negative Negative 06/06 [facility] mg/dL mg/dL [facility] URINE AND UA 0.2 EU/dL 0.1 - 1.0 06/06 [facility] Urobilinogen [facility] URINE AND UA Nitrite Negative Negative 06/06 [facility] (06/06/17 1:55 PM) URINE AND UA Bili Negative Negative 06/06 [facility] *NA* (06/06/17 1:55 PM) URINE AND UA Blood Negative Negative 06/06 [facility] (06/06/17 1:55 PM) URINE AND UA pH 7.0 5.0 - 8.0 06/06 [facility] URINE AND UA Spec Grav 1.020 <=1.030 06/06 [facility] URINE AND UA Color Yellow Yellow 06/06 [facility] *NA* (06/06/17 1:55 PM) URINE AND UA Turbidity Clear Clear 06/06 [facility] (06/06/17 1:55 PM) URINE AND UA RBC 0-2 /HPF 0 - 2 06/06 [facility] URINE AND UA Bacteria None Seen None Seen 06/06 [facility] (06/06/17 1:55 PM) URINE AND UA Sq Epi None Seen Few 06/06 [facility] (06/06/17 1:55 PM) URINE AND UA WBC None Seen None Seen 06/06 [facility] (06/06/17 1:55 PM) ED ED Patient Name: KANCHAN BASILIO PRATT 06/06 - [facility]domen/Pelv /2016 - [facility] lvis IV is IV : 1980; Age: 37 years y/o Male contrast contrast only CT only CT MR: [id number] Read by: Joe Mccray MD Dictated Date/time: [...] with clinical information and clinical examination. SL: [id number] Chest 2 Chest 2 Clinical History : , - Rib pain 06/05 - views DX views DX /2016 [facility] Exam : PA and lateral views of [...] Globulin 3.4 g/dL 2.7 - 4.2 06/04 [facility] CHEM PANEL A/G Ratio 1.1 0.7 - 1.6 06/04 [facility] CHEM PANEL AGAP 12.4 meq/L 10.0 - [...] is not recommended in the following populations: [place] [address] Individuals with unstable creatinine concentrations, including patients [...] ALT 23 unit/L 0 - 65 06/04 [facility] CHEM PANEL Creatinine 0.86 mg/dL 0.50 - 06/04 Lvl 1.40 [facility] CHEM PANEL AST 8 unit/L 0 - 37 06/04 [facility] CHEM PANEL Lipase Lvl 188 unit/L 73 - 393 06/04 [facility] HEMATOLOGY Eosinophils 3.4 % 0.0 - 4.0 06/04 [facility] HEMATOLOGY Basophils 0.7 % 0.0 - 1.0 06/04 [facility] HEMATOLOGY Monocytes 7.5 % 2.0 - 12.0 06/04 [facility] HEMATOLOGY Lymphocytes 1.5 K/CMM 1.0 - 5.5 06/04 /2016 [facility] HEMATOLOGY Monocytes # 0.4 K/CMM 0.0 - 0.8 06/04 [facility] HEMATOLOGY Segs-Bands # 3.0 K/CMM 1.5 - 8.1 06/04 [facility] HEMATOLOGY Eosinophils 0.2 K/CMM 0.0 - 0.5 06/04 [facility] HEMATOLOGY Basophils # 0.0 K/CMM 0.0 - 0.2 06/04 [facility] HEMATOLOGY Segs 58.6 % 45.0 - 06/04 MH 75.0 [facility] HEMATOLOGY Lymphocytes 29.8 % 20.0 - 06/04 40.0 [facility] HEMATOLOGY Platelet 210 K/CMM 133 - 450 06/04 [facility] HEMATOLOGY RDW 13.5 % 11.5 - 06/04 MH 14.5 [facility] HEMATOLOGY MPV 6.2 fL 7.4 - 10.4 06/04 [facility] HEMATOLOGY RBC 3.71 M/CMM 4.70 - 06/04 MH 6.10 [facility] HEMATOLOGY WBC 5.2 K/CMM 3.7 - 10.4 06/04 [facility] HEMATOLOGY Hgb 12.8 g/dL 14.0 - 06/04 MH 18.0 [facility] HEMATOLOGY Hct 38.4 % 42.0 - 06/04 MH 54.0 [facility] HEMATOLOGY MCH 34.4 pg 27.0 - 06/04 31.0 [facility] HEMATOLOGY MCHC 33.2 g/dL 32.0 - 06/04 36.0 [facility] HEMATOLOGY MCV 103.7 fL 80.0 - 06/04 94.0 [facility] URINE AND UA WBC null 0 - 5 06/04 [facility] /2017 [facility] URINE AND UA Mucus Few /LPF None Seen 06/04 [facility] /LPF /2016 [facility] URINE AND UA Leuk Est Negative Negative 06/04 [facility] /2017 [facility] (06/04/17 8:57 AM) URINE AND UA Sq Epi Occasional Few /LPF 06/04 [facility] /LPF /2016 [facility] URINE AND UA RBC 1 /HPF 0 - 2 06/04 [facility] URINE AND UA <=1.0 0.1 - 1.0 06/04 [facility] Urobilinogen mg/dL [facility] URINE AND UA Color Yellow 06/04 [facility] URINE AND UA Protein Negative Negative 06/04 [facility] mg/dL mg/dL [facility] URINE AND UA pH 6.0 5.0 - 8.0 06/04 [facility] URINE AND UA Turbidity Clear Clear 06/04 [facility] (06/04/17 8:57 AM) URINE AND UA Spec Grav 1.029 <=1.030 06/04 [facility] URINE AND UA Bili Negative Negative 06/04 [facility] *NA* (06/04/17 8:57 AM) URINE AND UA Blood Negative Negative 06/04 [facility] (06/04/17 8:57 AM) URINE AND UA Nitrite Negative Negative 06/04 [facility] (06/04/17 8:57 AM) URINE AND UA Glucose Negative Negative 06/04 [facility] mg/dL mg/dL [facility] URINE AND UA Ketones Negative Negative 06/04 [facility] mg/dL mg/dL [facility] ED ED Patient Name: KANCHAN PRATT 06/04 - Abdomen/Pe Abdomen/Pelv /2016 - [facility] lvis IV is IV : 1980; Age: 37 years y/o Male contrast contrast only CT only CT MR: [id number] Read by: Miguel Carey MD Dictated Date/time: [...] Previous right hemicolectomy. No acute findings. SL: [id number] Vital Signs Vital Sign Value Date Comments Source Systolic (mm Hg) 132 07/12/2017 [facility] Diastolic (mm Hg) 86 07/12/2017 [facility] Heart Rate 87 07/12/2017 [facility] Respitory Rate 18 07/12/2017 [facility] Height 175.26 cm 07/11/2017 [facility] Weight 93.182 07/11/2017 [facility] BMI Calculated 30.34 07/11/2017 [facility] Temperature Oral (F) 98.6 F 07/11/2017 [facility] Systolic (mm Hg) 139 07/11/2017 [facility] Diastolic (mm Hg) 90 07/11/2017 [facility] Respitory Rate 18 07/11/2017 [facility] Heart Rate 95 07/11/2017 [facility] Systolic (mm Hg) 142 06/24/2017 [facility] Diastolic (mm Hg) 85 06/24/2017 [facility] Temperature Oral (F) 98 F 06/24/2017 [facility] Respitory Rate 18 06/24/2017 [facility] Respitory Rate 18 06/24/2017 [facility] Systolic (mm Hg) 128 06/24/2017 [facility] Diastolic (mm Hg) 73 06/24/2017 [facility] Respitory Rate 18 06/24/2017 [facility] Systolic (mm Hg) 164 06/24/2017 [facility] Diastolic (mm Hg) 89 06/24/2017 [facility] Height 175.26 cm 06/24/2017 [facility] Weight 93.182 06/24/2017 [facility] BMI Calculated 30.34 06/24/2017 [facility] Heart Rate 91 06/24/2017 [facility] Temperature Oral (F) 98.3 F 06/24/2017 [facility] Height 175.26 cm 06/23/2017 [facility] Respitory Rate 18 06/23/2017 [facility] Temperature Oral (F) 98.1 F 06/23/2017 [facility] Heart Rate 107 06/23/2017 [facility] Systolic (mm Hg) 137 06/23/2017 [facility] Diastolic (mm Hg) 96 06/23/2017 [facility] Weight 93.182 06/23/2017 [facility] BMI Calculated 30.34 06/23/2017 [facility] Systolic (mm Hg) 146 06/18/2017 [facility] Diastolic (mm Hg) 85 06/18/2017 [facility] Temperature Oral (F) 97.9 F 06/18/2017 [facility] Respitory Rate 16 06/18/2017 [facility] Heart Rate 90 06/18/2017 [facility] Respitory Rate 17 06/18/2017 [facility] Heart Rate 87 06/18/2017 [facility] Systolic (mm Hg) 133 06/18/2017 [facility] Diastolic (mm Hg) 68 06/18/2017 [facility] Systolic (mm Hg) 139 06/18/2017 [facility] Diastolic (mm Hg) 90 06/18/2017 [facility] Heart Rate 82 06/18/2017 [facility] Respitory Rate 16 06/18/2017 [facility] Temperature Oral (F) 98.6 F 06/18/2017 [facility] Weight 93.182 06/18/2017 [facility] BMI Calculated 30.34 06/18/2017 [facility] Temperature Oral (F) 98.2 F 06/18/2017 [facility] Height 175.26 cm 06/18/2017 [facility] Systolic (mm Hg) 128 06/06/2017 [facility] Diastolic (mm Hg) 79 06/06/2017 [facility] Heart Rate 70 06/06/2017 [facility] Respitory Rate 16 06/06/2017 [facility] Heart Rate 77 06/06/2017 [facility] Respitory Rate 16 06/06/2017 [facility] Systolic (mm Hg) 133 06/06/2017 [facility] Diastolic (mm Hg) 86 06/06/2017 [facility] Systolic (mm Hg) 119 06/06/2017 [facility] Diastolic (mm Hg) 91 06/06/2017 [facility] Heart Rate 70 06/06/2017 [facility] Respitory Rate 16 06/06/2017 [facility] Weight 100 06/06/2017 [facility] BMI Calculated 33.52 06/06/2017 [facility] Height 172.72 cm 06/06/2017 [facility] Temperature Oral (F) 98.0 F 06/06/2017 [facility] Systolic (mm Hg) 145 06/05/2017 [facility] Diastolic (mm Hg) 82 06/05/2017 [facility] Heart Rate 87 06/05/2017 [facility] Temperature Oral (F) 98.1 F 06/05/2017 [facility] Respitory Rate 18 06/05/2017 [facility] Weight 93.182 06/05/2017 [facility] Temperature Oral (F) 97 F 06/05/2017 [facility] Systolic (mm Hg) 139 06/05/2017 [facility] Diastolic (mm Hg) 89 06/05/2017 [facility] Heart Rate 84 06/05/2017 [facility] Respitory Rate 18 06/05/2017 [facility] Systolic (mm Hg) 147 06/04/2017 [facility] Diastolic (mm Hg) 68 06/04/2017 [facility] Heart Rate 74 06/04/2017 [facility] Respitory Rate 16 06/04/2017 [facility] Temperature Oral (F) 98.1 F 06/04/2017 [facility] Respitory Rate 16 06/04/2017 [facility] Systolic (mm Hg) 164 06/04/2017 [facility] Diastolic (mm Hg) 78 06/04/2017 [facility] Heart Rate 70 06/04/2017 [facility] Temperature Oral (F) 98.2 F 06/04/2017 [facility] Height 170.18 cm 06/04/2017 [facility] BMI Calculated 27.47 06/04/2017 [facility] Weight 79.545 06/04/2017 [facility] Respitory Rate 18 06/04/2017 [facility] Temperature Oral (F) 97.6 F 06/04/2017 [facility] Heart Rate 80 06/04/2017 [facility] Systolic (mm Hg) 157 06/04/2017 [facility] Diastolic (mm Hg) 97 06/04/2017 [facility] Encounters Location Location Encounter Encounter Reason Attending ADM DC Status Source Details Type Number For Provider Date Date [facility] [id number] Floresita 06/04 06/04 [facility] Maldonado /2016 [facility] [id number] Deangelo 06/05 06/05 Reyn[facility]do Ray /2016 [facility] [id number] Ch[facility]/06 [facility] [id number] Jose Alberto 06/18 06/18 [facility] Reynaldo Beto /2016 [facility] [id number] Amie 06/23 06/24 [facility] Reynaldo Cordova /2016 [facility] [id number] Melani 06/24 06/24 [facility] Reynaldo Hodge /2016 [facility] [id number] Booker 07/11 07/12 [facility] Reynaldo Luciano /2016 [facility] Procedures Procedure Code Date Perfomer Comments Source Colon operation [id number] [facility] Operation on [id number] [facility] Surgery [id number] surgery of the [facility] [place] inpatient care intestine due [facility] management<sup>1 to Chrons </sup> disease Colon operation [id number] [facility] Operation on [id number] [facility] Surgery [id number] surgery of the [facility] inpatient care intestine due [facility] management<sup>1 to Chrons </sup> disease Colon operation [id number] [facility] Operation on [id number] [facility] shoulder joint Surgery [id number] surgery of the [facility] inpatient care intestine due management<sup>1 to Chrons </sup> disease Colon operation [id number] [facility] Operation on [id number] [facility] shoulder joint Surgery [id number] surgery of the [facility] inpatient care intestine due management<sup>1 to Chrons </sup> disease
--- OUTSIDE RECORDS SUMMARY | 2018-06-08 10:32 | XMS REPORT ---
:1980 [facility] [address] [place] [address] Care Team Providers Name Role Phone UNKNOWN, [...] Facility Department ID 2017-06-29 2017-06-29 Emergency [facility] MED [id number] 15:02:00 15:02:00 2017-06-03 2017-06-03 Emergency E [facility] MED [id number] 23:59:00 23:59:00 Results Test Description Test Time Test Comments Text Results Atomic Results Result Comments HEPATIC FUNCTION PANEL 2017-06-04 02:17:00 Test Item Value Reference Range Comments TOTAL PROTEIN (BEAKER) (test rqjl=774) 7.0 gm/dL 6.0-8.5 ALBUMIN (BEAKER) (test dbbv=2636) 4.0 g/dL 3.5-5.0 BILIRUBIN TOTAL (BEAKER) (test pxzq=678) 0.8 mg/dL 0.1-1.2 BILIRUBIN DIRECT (BEAKER) (test jwau=435) 0.3 mg/dL 0.0-0.4 ALKALINE PHOSPHATASE (BEAKER) (test uety=404) 51 U/L 30-115 AST (SGOT) (BEAKER) (test jxns=629) 26 U/L 5-40 ALT (SGPT) (BEAKER) (test nhhz=949) 29 U/L 5-50 [id number] 02:17:00 Test Item Value Reference Range Comments AMYLASE (BEAKER) (test kqse=658) 102 U/L 30-110 [id number] 02:17:00 Test Item Value Reference Range Comments LIPASE (BEAKER) (test azeo=117) 62 U/L 40-240 BASIC METABOLIC [id number] 02:17:00 Test Item Value Reference Range Comments SODIUM (BEAKER) (test 140 meq/L 135-148 tvzb=905) POTASSIUM (BEAKER) (test 3.6 meq/L 3.6-5.5 vbvc=516) CHLORIDE (BEAKER) (test 104 meq/L 98-106 fddw=534) CO2 (BEAKER) (test 28 meq/L 24-32 sijt=141) BLOOD UREA NITROGEN 6 mg/dL 10-26 (BEAKER) (test mski=167) CREATININE (BEAKER) (test 0.76 mg/dL 0.50-1.20 pggd=272) GLUCOSE RANDOM (BEAKER) 107 mg/dL 70-110 (test ltlg=621) CALCIUM (BEAKER) (test 8.9 mg/dL 8.5-10.5 qlqs=498) EGFR (BEAKER) (test 141 mL/min/1.73 sq m ESTIMATED GFR IS NOT clzd=3708) ACCURATE CREATININE CLEARANCE IN PREDICTING GLOMERULAR FILTRATION RATE. ESTIMATED GFR IS NOT APPLICABLE FOR DIALYSIS PATIENTS. CBC W/PLT COUNT & AUTO [id number] 02:10:00 Test Item Value Reference Range Comments WHITE BLOOD CELL COUNT (BEAKER) (test kjyw=637) 5.7 10e3/ L 4.0-10.0 RED BLOOD CELL COUNT (BEAKER) (test wtox=888) 3.86 10e6/ L 4.20-5.80 HEMOGLOBIN (BEAKER) (test vufm=446) 13.3 g/dL 13.0-16.8 HEMATOCRIT (BEAKER) (test hxer=760) 40.2 % 40.0-50.0 MEAN CORPUSCULAR VOLUME (BEAKER) (test 104.3 fL 82.0-98.0 qsfm=465) MEAN CORPUSCULAR HEMOGLOBIN (BEAKER) (test 34.5 pg 27.0-33.0 fxpb=765) MEAN CORPUSCULAR HEMOGLOBIN CONC (BEAKER) (test 33.0 g/dL 32.0-36.0 wnhq=835) RED CELL DISTRIBUTION WIDTH (BEAKER) (test 10.6 % 10.3-14.2 clig=408) PLATELET COUNT (BEAKER) (test tuyc=238) 82 10e3/ L 150-430 MEAN PLATELET VOLUME (BEAKER) (test dxky=668) 8.2 fL 6.5-10.5 NEUTROPHILS RELATIVE PERCENT (BEAKER) (test 60 % afyj=984) LYMPHOCYTES RELATIVE PERCENT (BEAKER) (test 32 % coqp=388) MONOCYTES RELATIVE PERCENT (BEAKER) (test 6 % xnro=976) EOSINOPHILS RELATIVE PERCENT (BEAKER) (test 3 % dezb=540) BASOPHILS RELATIVE PERCENT (BEAKER) (test 0 % ashu=395) NEUTROPHILS ABSOLUTE COUNT (BEAKER) (test 3.39 10e3/ L 1.80-8.00 lpzn=945) LYMPHOCYTES ABSOLUTE COUNT (BEAKER) (test 1.78 10e3/ L 1.48-4.50 pikg=232) MONOCYTES ABSOLUTE COUNT (BEAKER) (test 0.32 10e3/ L 0.00-1.30 vxee=693) EOSINOPHILS ABSOLUTE COUNT (BEAKER) (test 0.14 10e3/ L 0.00-0.50 wico=744) BASOPHILS ABSOLUTE COUNT (BEAKER) (test 0.02 10e3/ L 0.00-0.20 dowx=568) CT ABDOMEN/PELVIS [id number] 22:28:[address] [id number] IMAGING REPORTPatient Name : Lee Ann PRATT of Service: [id number]: 37 Sex: M Order #: [id number] [facility] 1980 [facility] Number: [id number] Record Number: [id number] Hospital Number: [id number] Physician: PEDRO ALIOrdering Physician: RACHID HYMAN ABDOMEN [...] Signed By: Silver Cerna M.D., 05/31/2017 10:26 PMLegallani authenticated by JEWELS Castillo 2017-05-31 22:26:08CHEST XR 2 [id number] 21:47:[address] IMAG[address] REPORTPatient Name: Lee Ann PRATT of Service: [id number]: 37 Sex: M Order #: [id number] [facility] 1979 [facility] Number: [id number] Record Number: [id number] Hospital Number: [id number] Physician: MARCIE VASQUEZOrdering Physician: URIEL HYMAN 2 VIEWS:CLINICAL HISTORY: Right rib pain; recent fall playing basketballTECHNIQUE: PA and lateralFINDINGS: The heart and pulmonary vasculature are normal, and the lungs areclear.The mediastinal structures and bony thorax are normal.IMPRESSION:Normal chest.Electronically Signed By: Silver Cerna M.D., 05/31/2017 9:44 PMLegally authenticated by JEWELS Castillo 2017-05-31 21:44:55
[2018-06-08] MEDS ORDERED: NA CHLORIDE 0.9% 1,000 ML ONE ×2 (14:18→16:48)
[2018-06-08] MEDS ORDERED: ONDANSETRON 4 MG/2 ML VIAL ONE (14:18)
[2018-06-08] MEDS ORDERED: MORPHINE 4 MG/ML SYR ONE (14:18)
[2018-06-08 14:37] LABS: Absolute Lymphocytes (CBC) 1.1 K/uL (0.7-4.9); Absolute Monocytes 0.5 K/uL (0.1-1.3); Absolute Neutrophil 5.1 K/uL (1.8-8.0); Basophils % 0.5 % (0-1.3); Eosinophils % 1.2 % (0-4.4); Hematocrit 46.7 % (39.6-49.0); Lymphocytes % 16.2 % (15.3-44.8); MCH 34.8 pg (27.0-35.0); MCV 102.2 fL (80-100); MPV 6.8 fL (7.6-11.3); Monocytes % 7.3 % (3.3-12.3); RBC Red Blood Cell Count 4.56 M/uL (4.33-5.43)
[2018-06-08 14:58] LABS: ALT/SGPT 36 U/L (12-78); AST/SGOT 24 U/L (15-37); Albumin 4.2 g/dL (3.4-5.0); Alkaline Phosphatase 63 U/L (45-117); Amylase Level 101 U/L (25-115); BUN Blood Urea Nitrogen 10 mg/dL (7-18); Bicarbonate 27 mmol/L (21-32); Bilirubin Direct 0.2 mg/dL (0-0.2); Bilirubin Total 0.8 mg/dL (0.2-1.0); Glucose Level 94 mg/dL (74-106); Lipase 183 U/L (73-393); Protein, Total 8.3 g/dL (6.4-8.2); Sodium Level 138 mmol/L (136-145)
--- NOTE | 2018-06-08 15:29 | RAD REPORT ---
EXAM DESCRIPTION: CT - Abdomen Pelvis W Contrast - 06/08/2018 3:11 pm CLINICAL HISTORY: Abdominal pain with vomiting and diarrhea COMPARISON: March 2018 TECHNIQUE: Computed axial tomography of the abdomen pelvis was obtained. 100 cc Isovue-300 was admin istered intravenously. Oral contrast was not requested which limits evaluation of bowel. All CT scans are performed using dose optimization technique as appropriate and may include automated exposure control or mA/KV adjustment according to patient size. FINDINGS: The liver, spleen, pancreas, adrenal and kidneys appear unremarkable. Right hemicolectomy has been performed Mild thickening of the wall of the descending colon is present. An umbilical hernia contains fat. The neck measures a couple centimeters. IMPRESSION: Mild thickening of the wall of the descending colon probably indicating mild Crohn's col itis
[2018-06-08] MEDS ORDERED: METOCLOPRAMIDE 10 MG/2mL INJ ONE (15:38)
[2018-06-08 16:31] LABS: Urine Blood TRACE (NEG); Urine Glucose NEGATIVE (NEG); Urine Protein NEGATIVE (NEG); Urine Specific Gravity 1.015 (1.005-1.030)
[2018-06-08 16:35] LABS: Urine Bacteria <20 /HPF (NONE SEEN); Urine Culture Reflex Order NOT NEEDED; Urine RBC <5 /HPF (NONE SEEN)
[2018-06-08] MEDS ORDERED: levoFLOXacin 500 MG TAB ONE (16:47)
[2018-06-08] MEDS ORDERED: DEXAMETHASONE 10 MG/ML VIAL ONE (16:47)
[2018-06-08] MEDS ORDERED: METRONIDAZOLE 500mg IVPB 500 MG/100 ML BAG IV ONE (16:48)
--- NOTE | 2018-06-08 17:30 | EDPHYS ---
Physician Documentation [facility] Name: Johan Moreno Age: 38 yrs Sex: Male : 1980 Arrival Date: 06/08/2018 Time: 10:35 Bed 14 Private MD: ED Physician Tomi Sylvester HPI: 06/08 14:00 This 38 yrs old Black Male presents to ER via Ambulatory with complaints of Abdominal jmm Pain, Nausea/Vomiting/Diarrhea. 14:00 The patient presents with abdominal pain that is diffuse. Onset: The symptoms/episode jmm began/occurred gradually, 4 day(s) ago. Associated signs and symptoms: Pertinent positives: nausea and vomiting, diarrhea. The patient has experienced similar episodes in the past. This is a 38 year old male with a history of crohns disease that presents to the ED with 4 days of generalized abdominal pain vomiting and multiple episodes of diarrhea. Patient denies fever.. Historical: - Allergies: 10:51 Toradol; ss - Home Meds: 10:51 None [Active]; ss - PMHx: 10:51 Crohn's; ss - PSHx: 10:51 Bowel resection; ss - Immunization history:: Adult Immunizations up to date. - Social history:: Smoking status: Patient uses tobacco products, smokes one-half pack cigarettes per day. - Ebola Screening: : Patient denies exposure to infectious person Patient denies travel to an Ebola-affected area in the 21 days before illness onset. ROS: 14:00 Constitutional: Negative for fever, chills, and weight loss. jmm 14:00 Cardiovascular: Negative for chest pain, palpitations, and edema, Respiratory: Negative jmm for shortness of breath, cough, wheezing, and pleuritic chest pain. 14:00 Back: Negative for injury and pain, : Negative for injury, bleeding, discharge, and jmm swelling, MS/Extremity: Negative for injury and deformity. 14:00 Abdomen/GI: Positive for abdominal pain, nausea and vomiting, diarrhea. 14:00 All other systems are negative. Exam: 14:00 Head/Face: atraumatic. Chest/axilla: Normal chest wall appearance and motion. jmm Cardiovascular: Regular rate and rhythm. No edema appreciated Respiratory: Normal respirations, no respiratory distress appreciated 14:00 Constitutional: The patient appears alert, awake, uncomfortable. 14:00 Abdomen/GI: Inspection: abdomen appears normal, Bowel sounds: normal, Palpation: soft, moderate abdominal tenderness, in all quadrants. 14:00 Back: ROM is normal. 14:00 Musculoskeletal/extremity: ROM: intact in all extremities. 14:00 Skin: Appearance: Color: normal in color. 14:00 Neuro: Orientation: is normal, Mentation: is normal, Memory: is normal. 14:00 Psych: Behavior/mood is pleasant, cooperative. Vital Signs: 10:51 BP 138 / 99; Pulse 88; Resp 15; Temp 98.1(O); Pulse Ox 97% on R/A; Weight 104.33 kg; ss Height 5 ft. 9 in. (175.26 cm); Pain 8/10; 16:00 BP 122 / 75; Pulse 72; Resp 16; Pulse Ox 99% ; rb1 16:25 BP 92 / 58; Pulse 71; Resp 18; Pulse Ox 96% ; tl3 16:57 BP 114 / 102; Pulse 69; Resp 18; Pulse Ox 97% on R/A; tl3 18:35 BP 127 / 83; Pulse 66; Resp 18; Pulse Ox 97% on R/A; dm5 10:51 Body Mass Index 33.96 (104.33 kg, 175.26 cm) ss MDM: 14:00 Patient medically screened. [facility] 17:26 Data reviewed: vital signs, nurses notes, lab test result(s), radiologic studies, CT [facility] scan. Counseling: I had a detailed discussion with the patient and/or guardian regarding: the historical points, exam findings, and any diagnostic results supporting the discharge/admit diagnosis, lab results, radiology results, the need for further work-up and treatment in the hospital. ED course: I discussed the patient with Dr. Ledesma whom accepted admission. 06/08 14:00 Order name: Amylase, Serum; Complete Time: 15:[address] [facility] 06/08 14:00 Order name: Basic Metabolic Panel; Complete Time: 15:[address] [facility] 06/08 14:00 Order name: CBC with Diff; Complete Time: 15:[address] [facility] 06/08 14:00 Order name: Creatinine for Radiology; Complete Time: 15:[address] [facility] 06/08 14:00 Order name: Hepatic Function; Complete Time: 15:[address] [facility] 06/08 14:00 Order name: Lipase; Complete Time: 15:[address] [facility] 06/08 14:00 Order name: Urine Microscopic Only; Complete Time: 16:[address] [facility] 06/08 15:52 Order name: Urine Dipstick--Ancillary (enter results); Complete Time: 16:33 eb 06/08 17:43 Order name: Urinalysis [facility] 06/08 17:43 Order name: CBC with Automated Diff MS 06/08 17:43 Order name: CBC with Automated Diff EDMS 06/08 17:43 Order name: Comprehensive Metabolic Panel [facility] 06/08 17:43 Order name: Comprehensive Metabolic Panel [facility] 06/08 17:43 Order name: Magnesium [facility] 06/08 14:00 Order name: IV Saline Lock; Complete Time: 16:[address] [facility] 06/08 14:00 Order name: Labs collected and sent; Complete Time: 16:[address] [facility] 06/08 14:00 Order name: Urine Dipstick-Ancillary (obtain specimen); Complete Time: 16:[address] [facility] 06/08 14:02 Order name: CT Abd/Pelvis - W/Contrast; Complete Time: 15:[address] [facility] 06/08 17:43 Order name: NPO [facility] 06/08 17:43 Order name: Magnesium [facility] Administered Medications: 14:33 Drug: morphine 4 mg Route: IVP; Infused Over: 2 mins; Site: left antecubital; tl3 15:37 Follow up: Response: Pain is decreased tl3 14:33 Drug: Zofran 4 mg Route: IVP; Infused Over: 2 mins; Site: left antecubital; tl3 15:36 Follow up: Response: Nausea is decreased tl3 14:34 Drug: NS 0.9% 1000 ml Route: IV; Rate: 1 bolus; Site: left antecubital; Delivery: tl3 Primary tubing; 15:38 Follow up: IV Status: Completed infusion; IV Intake: 1000ml tl3 15:36 Drug: Reglan 10 mg Route: IVP; Infused Over: 10 mins; Site: left antecubital; tl3 16:05 Follow up: Response: No adverse reaction tl3 16:55 Drug: NS 0.9% 1000 ml Route: IV; Rate: 1000 ml; Site: left antecubital; Delivery: tl3 Primary tubing; 18:37 Follow up: IV Status: Completed infusion; IV Intake: 1000ml dm5 16:56 Drug: Decadron - Dexamethasone 10 mg Route: IVP; Infused Over: 2 mins; Site: left tl3 antecubital; 18:38 Follow up: Response: No adverse reaction dm5 16:56 Drug: LevaQUIN 500 mg Route: PO; tl3 18:38 Follow up: Response: No adverse reaction dm5 16:56 Drug: Flagyl 500 mg Volume: 100 ml; Route: IVPB; Rate: 200 ml/hr; Infused Over: 30 tl3 mins; Site: left antecubital; 18:37 Follow up: IV Status: Completed infusion; IV Intake: 100ml dm5 Disposition: 06/08/18 17:29 Hospitalization ordered by Darryl Ledesma for Observation. Preliminary diagnosis are Crohns Flare, Intractable Abdominal Pain. - Bed requested for Telemetry/MedSurg (observation). - Status is Observation. ak1 - Condition is Stable. - Problem is new. - Symptoms are unchanged. UTI on Admission? No Addendum: 06/10/2018 11:29 Co-signature as Attending Physician, Tomi Sylvester MD I agree with the assessment and w a plan of care. Signatures: Dispatcher [employer] EDMS Bryan Bennett PA PA jmm Smirch, Shelby, RN RN ss Rose Cody RN RN ak1 Tomi Sylvester MD MD wa Lowrey, Tammy, RN RN tl3 Bria Orellana Deana RN dm5 Corrections: (The following items were deleted from the chart) 06/08 18:21 17:29 Hospitalization Ordered by Darryl Ledesma MD for Observation. Preliminary eb diagnosis is Crohns Flare; Intractable Abdominal Pain. Bed requested for Telemetry/MedSurg (observation). Status is Observation. Condition is Stable. Problem is new. Symptoms are unchanged. UTI on Admission? No. breanna 18:47 18:21 06/08/2018 17:29 Hospitalization Ordered by Darryl Ledesma MD for Observation. eb Preliminary diagnosis is Crohns Flare; Intractable Abdominal Pain. Bed requested for Telemetry/MedSurg (observation). Status is Observation. Condition is Stable. Problem is new. Symptoms are unchanged. UTI on Admission? No. eb 19:42 18:47 06/08/2018 17:29 Hospitalization Ordered by Darryl Ledesma MD for Observation. ak1 Preliminary diagnosis is Crohns Flare; Intractable Abdominal Pain. Bed requested for Telemetry/MedSurg (observation). Status is Observation. Condition is Stable. Problem is new. Symptoms are unchanged. UTI on Admission? No. eb
--- NOTE | 2018-06-08 17:30 | ER ---
Nurse's Notes [facility] Name: Johan Moreno Age: 38 yrs Sex: Male : 1980 Arrival Date: 06/08/2018 Time: 10:35 Bed 14 Private MD: Diagnosis: Crohns Flare;Intractable Abdominal Pain Presentation: 06/08 10:50 Presenting complaint: Patient states: N/V/D and abd pain that began 4 days ago. Pt ss reports a history of Crohns disease and states that this feels like a flare up. Transition of care: patient was not received from another setting of care. Onset of symptoms was June 04, 2018. Risk Assessment: Do you want to hurt yourself or someone else? Patient reports no desire to harm self or others. Initial Sepsis Screen: Does the patient meet any 2 criteria? No. Patient's initial sepsis screen is negative. Does the patient have a suspected source of infection? No. Patient's initial sepsis screen is negative. Care prior to arrival: None. 10:50 Method Of Arrival: Ambulatory ss 10:50 Acuity: KJ 3 ss Historical: - Allergies: 10:51 Toradol; ss - Home Meds: 10:51 None [Active]; ss - PMHx: 10:51 Crohn's; ss - PSHx: 10:51 Bowel resection; ss - Immunization history:: Adult Immunizations up to date. - Social history:: Smoking status: Patient uses tobacco products, smokes one-half pack cigarettes per day. - Ebola Screening: : Patient denies exposure to infectious person Patient denies travel to an Ebola-affected area in the 21 days before illness onset. Screenin:20 Abuse screen: Denies threats or abuse. Nutritional screening: No deficits noted. tl3 Tuberculosis screening: No symptoms or risk factors identified. Fall Risk None identified. Assessment: 13:20 General: Appears distressed, uncomfortable, well groomed, well developed, well tl3 nourished, Behavior is calm, cooperative, appropriate for age. Pain: Complains of pain in abdomen Pain currently is 10 out of 10 on a pain scale. Neuro: Level of Consciousness is awake, alert, obeys commands, Oriented to person, place, time, situation, Appropriate for age. Cardiovascular: Patient's skin is warm and dry. Respiratory: Airway is patent Respiratory effort is even, unlabored, Respiratory pattern is regular, symmetrical. GI: Abdomen is round Bowel sounds hyperactive in suprapubic area, right upper quadrant, left upper quadrant, right lower quadrant and left lower quadrant. GI: Reports diarrhea, nausea, vomiting, since 4 days. : Urine is clear. EENT: No signs and/or symptoms were reported regarding the EENT system. Derm: No signs and/or symptoms reported regarding the dermatologic system. Musculoskeletal: No signs and/or symptoms reported regarding the musculoskeletal system. 16:25 Reassessment: Patient appears in no apparent distress at this time. No changes from tl3 previously documented assessment. Patient and/or family updated on plan of care and expected duration. Pain level reassessed. Patient is alert, oriented x 3, equal unlabored respirations, skin warm/dry/pink. Bryan at bedside discussing POC. 16:57 Reassessment: No changes from previously documented assessment. Patient and/or family tl3 updated on plan of care and expected duration. Pain level reassessed. Patient is alert, oriented x 3, equal unlabored respirations, skin warm/dry/pink. 18:35 Reassessment: No changes from previously documented assessment. Patient and/or family dm5 updated on plan of care and expected duration. Pain level reassessed. Patient is alert, oriented x 3, equal unlabored respirations, skin warm/dry/pink. hospitalist discussing POC with pt and family. 19:06 GI: Abd is soft and non tender. ak1 19:35 Reassessment: report called to Usha nurse for 231. ak1 Vital Signs: 10:51 BP 138 / 99; Pulse 88; Resp 15; Temp 98.1(O); Pulse Ox 97% on R/A; Weight 104.33 kg; Height 5 ft. 9 in. (175.26 cm); Pain 8/10; 16:00 BP 122 / 75; Pulse 72; Resp 16; Pulse Ox 99% ; rb1 16:25 BP 92 / 58; Pulse 71; Resp 18; Pulse Ox 96% ; tl3 16:57 BP 114 / 102; Pulse 69; Resp 18; Pulse Ox 97% on R/A; tl3 18:35 BP 127 / 83; Pulse 66; Resp 18; Pulse Ox 97% on R/A; dm5 10:51 Body Mass Index 33.96 (104.33 kg, 175.26 cm) ED Course: 10:35 Patient arrived in ED. as 10:50 Triage completed. ss 10:51 Arm band placed on left wrist. ss 13:20 Patient has correct armband on for positive identification. Bed in low position. Call tl3 light in reach. Side rails up X 1. Pulse ox on. NIBP on. 13:20 No provider procedures requiring assistance completed. Inserted saline lock: 20 gauge tl3 in left antecubital area, using aseptic technique. Blood collected. 13:44 Bryan Bennett PA is PHCP. jmm 13:44 Tomi Sylvester MD is Attending Physician. jmm 14:09 Jayne Hollingsworth, CANDE is Primary Nurse. tl3 14:18 Radiology exam delayed due to lab results not completed at this time. (BUN/Creatinine). mw3 14:56 lab here for 4th redraw, unable to collect, another member of lab called. tl3 15:11 CT Abd/Pelvis - W/Contrast In Process Unspecified. EDMS 15:11 CT completed. Patient tolerated procedure well. Patient moved back from CT. bq 17:27 Darryl Ledesma MD is Hospitalizing Provider. jmm 19:14 Patient admitted, IV remains in place. ak1 Administered Medications: 14:33 Drug: morphine 4 mg Route: IVP; Infused Over: 2 mins; Site: left antecubital; tl3 15:37 Follow up: Response: Pain is decreased tl3 14:33 Drug: Zofran 4 mg Route: IVP; Infused Over: 2 mins; Site: left antecubital; tl3 15:36 Follow up: Response: Nausea is decreased tl3 14:34 Drug: NS 0.9% 1000 ml Route: IV; Rate: 1 bolus; Site: left antecubital; Delivery: tl3 Primary tubing; 15:38 Follow up: IV Status: Completed infusion; IV Intake: 1000ml tl3 15:36 Drug: Reglan 10 mg Route: IVP; Infused Over: 10 mins; Site: left antecubital; tl3 16:05 Follow up: Response: No adverse reaction tl3 16:55 Drug: NS 0.9% 1000 ml Route: IV; Rate: 1000 ml; Site: left antecubital; Delivery: tl3 Primary tubing; 18:37 Follow up: IV Status: Completed infusion; IV Intake: 1000ml dm5 16:56 Drug: Decadron - Dexamethasone 10 mg Route: IVP; Infused Over: 2 mins; Site: left tl3 antecubital; 18:38 Follow up: Response: No adverse reaction dm5 16:56 Drug: LevaQUIN 500 mg Route: PO; tl3 18:38 Follow up: Response: No adverse reaction dm5 16:56 Drug: Flagyl 500 mg Volume: 100 ml; Route: IVPB; Rate: 200 ml/hr; Infused Over: 30 tl3 mins; Site: left antecubital; 18:37 Follow up: IV Status: Completed infusion; IV Intake: 100ml dm5 Intake: 15:38 IV: 1000ml; Total: 1000ml. tl3 18:37 IV: 1000ml; Total: 2000ml. dm5 18:37 IV: 100ml; Total: 2100ml. dm5 Outcome: 17:29 Decision to Hospitalize by Provider. [facility] 19:05 Condition: stable ak1 19:05 Instructed on the need for admit. 19:06 Admitted to Med/surg accompanied by tech, via wheelchair. ak1 19:42 Patient left the ED. ak1 Signatures: Dispatcher [employer] EDChrystal Bergman RN RN dm5 Bryan Bennett PA PA jmm Quilty, Betty bq Martinez, Amelia as Smirch, Shelby, RN RN ss Krenek, Amber, RN RN ak1 Nemo Nicholson RN RN rb1 Jayne Hollingsworth RN RN tl3 Onelia Gonzalez 3
[2018-06-08] MEDS ORDERED: ACETAMINOPHEN 500 MG TAB PO PRN (17:40)
[2018-06-08] MEDS ORDERED: DICYCLOMINE HCL 10 MG CAP ONE (17:57)
[2018-06-08] MEDS: D5 0.45 NS 1,000 ML IV SCH (20:43)
[2018-06-08] MEDS: ZOLPIDEM TARTRATE 5 MG TABLET PO PRN (20:44)
[2018-06-08] MEDS: METHYLPREDNISOLONE 125 MG INJ IV SCH ×2 (20:44→20:53)
[2018-06-08] MEDS: MORPHINE 4 MG/ML SYR IV PRN (20:44)
[2018-06-08] MEDS ORDERED: CIPROFLOXACIN 400mg IV 400 MG/200 ML BAG IV SCH (21:00)
--- NOTE | 2018-06-08 22:39 | HP ---
Date of Admission: 06/08/2018 Reason For Admission: Abdominal pain, diarrhea, nausea, vomiting. History Of Present Illness: This is a 38-year-old gentleman with history of Crohn disease, who reloc ated from [place] to [place] recently. The patient was known to have a history of Crohn disease, stat us post colectomy 2 years ago. The patient has no insurance, so he does not follow up with [facility]. Presented to emergency room with history of couple weeks progressive abdominal pain that starte d to get much worse in the last 3 days. The patient reported bloody stool, up to 6-7 bowel movement a day, in the last 2 days. He has diarrhea at baseline, but this is much worse than his norm. He barnes d nausea and vomiting x4 yesterday in the ER and CT scan of the abdomen done and showed mild thickeni ng of the wall of the descending colon, beginning of mild colitis. Currently he is feeling a little better after he received some medication in the emergency room. His nausea is under control. He is being admitted for Crohn's flare up. Review of Systems: Otherwise, negative. Past Medical History: Significant for Crohn disease. Otherwise none. Past Surgical History: Significant for colectomy, carpal tunnel surgery, shoulder surgery. Allergies: NONE. Social History: He is . He has 2 kids. He does not use any drugs, but he drinks at least co uple of days a week and he smokes half a pack a day for the last 10 to 20 years. Family History: Father . Mother alive and she is healthy. Social History: The patient works at . Review of Systems: Denies any fever, chills, night sweats, dizziness, lightheaded, headache, blurred vision. There was no cough, sputum, shortness of breath. No chest pain, palpitations, PND, orthopnea, dyspnea, exertio n, lower extremity edema. He does have nausea or vomiting. He does have abdominal pain and diarrhea , blood in the stool. No dysuria, frequency, urgency, hematuria. There is no history of depression and anxiety. Physical Examination: Vital Signs: Currently, blood pressure is 114/102, respiratory rate 18, pulse 69, temperature 98.1, saturating 97%. The patient is alert and oriented x3. Does not look in any distress. HEENT: Atraumatic, normocephalic. PERRLA. Oral mucosa is moist. Neck: Supple. No JVD. No carotid bruits. Chest: Clear to auscultation. Good air entry. Heart: Regular rate and rhythm. S1, S2 normal. No gallop or murmur. Chest: Clear to auscultation. Good air entry. Abdomen: Soft with minimal tenderness mostly in the epigastric area, and both right and left upper q uadrants. Extremities: No clubbing, cyanosis, or edema. No calf tenderness. Neurologic: Grossly intact. Cranial nerve exam 2 through 12 intact. Normal sensation. Normal refl exes. Normal muscle strength. Laboratory Data: Today showed CBC within normal. Chemistry within normal except for serum total pro tein of 8.3, globulin 4.1, amylase 101, lipase 183. Assessment And Plan: This is a 38-year-old gentleman with history of Crohn disease status post colec ha, now with nausea, vomiting, abdominal pain. CT scan consistent with acute episode of colitis. 1.Crohn disease. We will admit the patient on the floor. Keep him n.p.o. at this point. Continue IV fluids. 2.Symptomatic treatment for pain. The patient will be on IV steroid with Solu-Medrol. GI consult r equested. We will continue the patient on IV antibiotics, Cipro and Flagyl empirically. 3.Symptomatic treatment for nausea and vomiting. 4.Symptomatic treatment for pain. No DVT prophylaxis needed. Patient has GI bleed. DAVID Voice ID: [id number]
[2018-06-08 23:13] LABS: Urine Appearance CLEAR; Urine Bilirubin NEGATIVE (NEG); Urine Blood NEGATIVE (NEG); Urine Color YELLOW; Urine Glucose NEGATIVE (NEG); Urine Protein NEGATIVE (NEG); Urine Urobilinogen 0.2 mg/dL (0.2-1.0); Urine pH 5.5 (5.0-7.0)
[2018-06-08 23:26] LABS: Urine Microscopic Reflex NO UMIC
[2018-06-09] MEDS ORDERED: METRONIDAZOLE 500mg IVPB 500 MG/100 ML BAG IV SCH (01:00)
[2018-06-09] MEDS: METRONIDAZOLE 500mg IVPB 500 MG/100 ML BAG IV SCH ×3 (01:09→17:08)
[2018-06-09] MEDS: METHYLPREDNISOLONE 125 MG INJ IV SCH ×4 (01:09→17:08)
[2018-06-09] MEDS ORDERED: DIPHENHYDRAMINE 50 MG/ML VIAL IV ONE (01:16)
[2018-06-09] MEDS: MORPHINE 4 MG/ML SYR IV PRN ×4 (03:37→23:33)
[2018-06-09 05:18] LABS: Absolute Lymphocytes (CBC) 0.5 K/uL (0.7-4.9); Absolute Neutrophil 7.3 K/uL (1.8-8.0); Basophils % 0.1 % (0-1.3); Hematocrit 42.8 % (39.6-49.0); Lymphocytes % 5.8 % (15.3-44.8); MCH 35.7 pg (27.0-35.0); MCV 103.5 fL (80-100); MPV 6.8 fL (7.6-11.3); Monocytes % 0.6 % (3.3-12.3); RBC Red Blood Cell Count 4.14 M/uL (4.33-5.43)
[2018-06-09 05:53] LABS: Blood Morphology Comment NOT SEEN (NOT SEEN); Platelet Estimate ADEQ
[2018-06-09 05:58] LABS: ALT/SGPT 34 U/L (12-78); AST/SGOT 29 U/L (15-37); Albumin 3.6 g/dL (3.4-5.0); Alkaline Phosphatase 56 U/L (45-117); BUN Blood Urea Nitrogen 11 mg/dL (7-18); Bicarbonate 22 mmol/L (21-32); Bilirubin Total 0.6 mg/dL (0.2-1.0); Glucose Level 145 mg/dL (74-106); Magnesium 2.2 mg/dL (1.8-2.4); Potassium 4.3 mmol/L (3.5-5.1); Protein, Total 7.5 g/dL (6.4-8.2); Sodium Level 139 mmol/L (136-145)
[2018-06-09] MEDS: D5 0.45 NS 1,000 ML IV SCH ×2 (06:02→15:02)
[2018-06-09] MEDS ORDERED: MORPHINE 2 MG/ML SYR IV ONE (06:17)
[2018-06-09] MEDS: CIPROFLOXACIN 400mg IV 400 MG/200 ML BAG IV SCH ×2 (08:41→22:20)
[2018-06-09 12:12] LABS: Folic Acid, (Folate) 16.9 ng/mL (3.1-17.5); Thyroid Stimulating Hormone 0.13 uIU/mL (0.36-3.74)
[2018-06-09] MEDS: OXYCODONE HCL 5 MG TAB PO PRN ×2 (13:07→21:27)
--- NOTE | 2018-06-09 14:10 | PN ---
Subjective: Currently, the patient is lying in bed. He looks comfortable, but he did not have good night. He continued to have abdominal pain on and off. He continued to have diarrhea with blood in the stool. No fever, no chills. Objective: Vital Signs: Currently vital signs; blood pressure is 132/70, respiratory rate 20, pulse is 80, temperature 97.7. General: The patient rating his abdominal pain at 8. He is alert, oriented x3. Does not look in di stress. HEENT: Atraumatic, normocephalic. Oral mucosa is dry. Neck: Supple. No JVD. No bruits. Chest: Clear to auscultation. Good air entry. Heart: Regular rate and rhythm. S1, S2 normal. No gallop or murmur. Abdomen: Soft. Diffuse tenderness mostly in the upper quadrant. No rebound. No guarding. Active bowel sounds. Extremities: No clubbing, cyanosis, or edema. No calf tenderness. Neurologic: Grossly intact. Laboratory Data: Today, CBC within normal except for elevated MCV, platelet of 189. Chemistry withi n normal except for glucose 145. LFT within normal. Assessment And Plan: 1.Colitis versus Crohn disease exacerbation. At this point, we will continue patient on IV antibiot ic empirically with Flagyl and Cipro, also Solu-Medrol every 6 hours. GI consult requested. The pat ient is not feeling much better. We will continue the patient on n.p.o. except for ice chips at this point. 2.Symptomatic treatment for pain. Continue on p.r.n. morphine. 3.Symptomatic treatment for nausea with Zofran. 4.I will order stool study to rule out infection. 5.The patient need social work help to arrange for outpatient followup as well given that Crohn is in chronic condition that will need follow up on regular basis. MARIO/ROWENA Voice ID: [id number] Report ID: [id number]
[2018-06-09] MEDS: ONDANSETRON 4 MG/2 ML VIAL IV PRN ×2 (17:08→23:33)
[2018-06-09] MEDS ORDERED: METOCLOPRAMIDE 10 MG/2mL INJ IV PRN (18:44)
[2018-06-09] MEDS: ZOLPIDEM TARTRATE 5 MG TABLET PO PRN (22:21)
[2018-06-10] MEDS: D5 0.45 NS 1,000 ML IV SCH ×3 (00:02→10:00)
[2018-06-10] MEDS: METRONIDAZOLE 500mg IVPB 500 MG/100 ML BAG IV SCH ×3 (01:00→17:58)
[2018-06-10] MEDS: OXYCODONE HCL 5 MG TAB PO PRN ×3 (03:38→17:23)
[2018-06-10] MEDS: METHYLPREDNISOLONE 125 MG INJ IV SCH ×4 (05:58→17:58)
[2018-06-10] MEDS: MORPHINE 4 MG/ML SYR IV PRN ×3 (05:58→21:59)
[2018-06-10] MEDS: CIPROFLOXACIN 400mg IV 400 MG/200 ML BAG IV SCH ×2 (08:50→21:58)
[2018-06-10] MEDS: Ringers Lactate 1,000 ML IV SCH (12:22)
[2018-06-10] MEDS ORDERED: FENTANYL 75 MCG/PATCH TD SCH (19:00)
--- NOTE | 2018-06-10 19:50 | PN ---
Date of Progress Note: 06/10/2018 Subjective: The patient seen and examined. Chart reviewed and case discussed with RN. The patient still complains of significant abdominal pain and some nausea. Patient goes out to smoke multiple times a day from his room Review of Systems: Negative except as above. Medications: Reviewed. Physical Examination: Vital Signs: Temperature 97.6, heart rate 98, blood pressure 140/81, respirations 20, O2 96% on room air. General: Awake, alert, oriented x3, in some mild distress. Obese male. BMI 33. Somewhat ill-appearing. CV: S1, S2. No murmurs. Regular rate and rhythm. Peripheral pulses present. Respiratory: Moving air well bilaterally. No wheezing. No stridor. No use of accessory muscles. Gastrointestinal: Abdomen is soft. Mild tenderness to palpation. No distention. Positive bowel sounds. No guarding or rigidity. Extremities: No clubbing, cyanosis, or edema. No calf tenderness. Neuro: Cranial nerves 2-12 intact grossly. No focal neurological deficit. Skin: Normal. No rashes. Laboratory Data: Sodium 139, potassium 4.3, chloride 107, CO2 22, BUN 11, creatinine 1, glucose 145, calcium 8.8, magnesium 2.2. Vitamin B12 583, folate 16.9, TSH 0.1. WBC is pending. Assessment And Plan: A 38-year-old male with: 1. Acute Crohn's exacerbation. We will continue with IV fluids, steroids. GI has been consulted. Continue empiric antibiotics and antiemetics. 2. Intractable nausea and vomiting. 3. Obesity, BMI 33.4. 4. Macrocytosis. Vitamin B12, folate level are normal. 5. GI and DVT prophylaxis addressed. /MODLi Voice ID: [id number] Report ID: [id number] QUINTON
[2018-06-11] MEDS: METHYLPREDNISOLONE 125 MG INJ IV SCH ×2 (00:37→05:27)
[2018-06-11] MEDS: METRONIDAZOLE 500mg IVPB 500 MG/100 ML BAG IV SCH ×3 (00:38→17:07)
[2018-06-11] MEDS: ZOLPIDEM TARTRATE 5 MG TABLET PO PRN (00:43)
[2018-06-11] MEDS: Ringers Lactate 1,000 ML IV SCH ×2 (03:53→14:40)
[2018-06-11] MEDS: PANTOPRAZOLE 40MG TABLET PO SCH (05:39)
[2018-06-11] MEDS: MORPHINE 4 MG/ML SYR IV PRN ×3 (05:39→20:13)
[2018-06-11 06:58] LABS: Absolute Lymphocytes (CBC) 0.4 K/uL (0.7-4.9); Absolute Monocytes 0.3 K/uL (0.1-1.3); Absolute Neutrophil 11.8 K/uL (1.8-8.0); Basophils % 0.2 % (0-1.3); Hematocrit 40.8 % (39.6-49.0); Lymphocytes % 3.3 % (15.3-44.8); MCH 35.1 pg (27.0-35.0); MCV 103.8 fL (80-100); MPV 7.9 fL (7.6-11.3); Monocytes % 2.6 % (3.3-12.3); RBC Red Blood Cell Count 3.93 M/uL (4.33-5.43)
[2018-06-11 07:10] LABS: ALT/SGPT 30 U/L (12-78); AST/SGOT 14 U/L (15-37); Albumin 3.6 g/dL (3.4-5.0); Alkaline Phosphatase 48 U/L (45-117); BUN Blood Urea Nitrogen 10 mg/dL (7-18); Bicarbonate 27 mmol/L (21-32); Bilirubin Total 0.6 mg/dL (0.2-1.0); Glucose Level 119 mg/dL (74-106); Potassium 3.8 mmol/L (3.5-5.1); Sodium Level 140 mmol/L (136-145)
--- NOTE | 2018-06-11 07:56 | RAD REPORT ---
EXAM DESCRIPTION: RAD - Abdomen 1 View (KUB) - 06/11/2018 7:39 am CLINICAL HISTORY: ABDOMINAL PAIN<Reason For Exam>ABDOMINAL PAIN COMPARISON: Abdomen Pelvis W Contrast dated 06/08/2018<Comparisons> CT abdomen June 08 FINDINGS: Bowel gas pattern is non-specific. No obstruction, free air or pneumatosis. No suspicious calcifications. Cholecystectomy clips are present. The ascending colitis findings detailed on the CT study are not appreciated on the current examination or have improved. No significant bony findings IMPRESSION: Negative KUB examination.
[2018-06-11] MEDS: OXYCODONE HCL 5 MG TAB PO PRN (08:59)
[2018-06-11] MEDS: CIPROFLOXACIN 400mg IV 400 MG/200 ML BAG IV SCH ×2 (09:00→20:14)
[2018-06-11] MEDS: ONDANSETRON 4 MG/2 ML VIAL IV PRN (17:16)
[2018-06-11] MEDS: METHYLPREDNISOLONE 40 MG INJ IV SCH (20:14)
--- NOTE | 2018-06-11 20:47 | PN ---
Date of Progress Note: 06/11/2018 Subjective: The patient seen and examined. Chart reviewed and case discussed with RN and Dr. Aguirre. The patient states his pain is significantly better. He is hungry and wants to eat. Review of Systems: Negative except as above. Medications: List reviewed. Physical Examination: Vital Signs: Temperature 98.3, heart rate 69, blood pressure 138/80, respirations 19, O2 99% on room air. General: Awake, alert, oriented x3. No acute distress. Obese male. BMI 33. CV: S1, S2. No murmurs. Regular rate and rhythm. Peripheral pulses present. Respiratory: Moving air well bilaterally. No wheezing or stridor. Gastrointestinal: Abdomen is soft. Mild tenderness to palpation. No rebound or guarding. No distention. Positive bowel sounds. Extremities: No clubbing, cyanosis, or edema. Neurologic: Nonfocal. Laboratory Data: Sodium 140, potassium 3.8, chloride 106, CO2 27, BUN 10, creatinine 0.8, glucose 119, calcium 8.9, total bilirubin 0.6, AST 14, ALT 30. WBC 12.5, H and H 13.8 and 40.8, platelets 185, neutrophils 93%. stool cultures pending. Stool occult blood is negative. KUB personally reviewed shows negative KUB examination. Assessment And Plan: A 38-year-old male with: 1. Acute Crohn's exacerbation. Continue with IV fluids and steroids. We will wean down steroids. Appreciate Dr. Aguirre's input. The patient does not have insurance, unable to afford Remicade. 2. Intractable nausea and vomiting, improving. We will start on low residue diet. 3. Obesity. BMI 33.4. Counseled. 4. Macrocytosis. Workup negative so far including vitamin B12 and folate levels. 5. Gastrointestinal and deep venous thrombosis prophylaxis. SCDs and PPI. 6. Discharge in next 24-48 hours if continues to improve. /ROWENA Voice ID: [id number] Report ID: [id number] QUINTON
[2018-06-12] MEDS: ZOLPIDEM TARTRATE 5 MG TABLET PO PRN (00:18)
[2018-06-12] MEDS: METRONIDAZOLE 500mg IVPB 500 MG/100 ML BAG IV SCH ×2 (00:18→09:05)
[2018-06-12] MEDS: MORPHINE 4 MG/ML SYR IV PRN ×2 (05:06→12:48)
[2018-06-12] MEDS: Ringers Lactate 1,000 ML IV SCH (05:07)
[2018-06-12] MEDS: PANTOPRAZOLE 40MG TABLET PO SCH (05:09)
[2018-06-12 07:02] LABS: Absolute Lymphocytes (CBC) 0.8 K/uL (0.7-4.9); Absolute Monocytes 0.9 K/uL (0.1-1.3); Absolute Neutrophil 8.3 K/uL (1.8-8.0); Hematocrit 39.7 % (39.6-49.0); Lymphocytes % 8.3 % (15.3-44.8); MCH 35.7 pg (27.0-35.0); MCV 103.4 fL (80-100); MPV 7.3 fL (7.6-11.3); Monocytes % 8.6 % (3.3-12.3); RBC Red Blood Cell Count 3.84 M/uL (4.33-5.43)
[2018-06-12 07:27] LABS: ALT/SGPT 26 U/L (12-78); AST/SGOT 10 U/L (15-37); Albumin 3.4 g/dL (3.4-5.0); Alkaline Phosphatase 53 U/L (45-117); BUN Blood Urea Nitrogen 14 mg/dL (7-18); Bicarbonate 30 mmol/L (21-32); Bilirubin Total 0.4 mg/dL (0.2-1.0); Glucose Level 107 mg/dL (74-106); Potassium 3.7 mmol/L (3.5-5.1); Protein, Total 6.6 g/dL (6.4-8.2); Sodium Level 138 mmol/L (136-145)
[2018-06-12] MEDS: METHYLPREDNISOLONE 40 MG INJ IV SCH (09:05)
[2018-06-12] MEDS: CIPROFLOXACIN 400mg IV 400 MG/200 ML BAG IV SCH (09:05)
[2018-06-12] MEDS: OXYCODONE HCL 5 MG TAB PO PRN (09:12)
[2018-06-12] MEDS: ONDANSETRON 4 MG/2 ML VIAL IV PRN (12:39)
--- NOTE | 2018-06-13 05:59 | DS ---
Date of Discharge: 06/12/2018 Consultants: Tomi Aguirre M.D. with GI. Admitting Diagnoses: 1.Acute Crohn's exacerbation. 2.Intractable nausea and vomiting. 3.Obesity, body mass index 33. Discharge Diagnoses: 1.Acute Crohn's exacerbation, improving. 2.Intractable nausea and vomiting, resolved. 3.Obesity, body mass index 33.4. 4.Macrocytosis. Hospital Course: The patient is a 38-year-old male with past medical history of Crohn's disease, com es in with abdominal pain, nausea, vomiting. Recently moved from [place]. Has not been following u p with GI recently. The patient is complaining of bloody stools and intractable nausea, vomiting, ab dominal pain. CT scan was done, which showed some mild colitis consistent with Crohn's. The patient was started on antibiotics and IV fluids as well as steroids. The patient was seen by Dr. Aguirre [facility] and the patient had repeat KUB which did not show any abnormalities. The patient otherwise was able to be started on a liquid diet and eventually a GI soft diet which he tolerated well. The catalina ent's condition improved. His pain started to improve. He did require significant amount of pain me dications and was asking for the pain medication and nausea medication around the clock. It should b e noted that the patient did go out and smoke multiple times per day. The patient was then weaned of f steroids as his condition improved. He did have some steroid-induced leukocytosis which resolved. The patient did have some macrocytosis. Vitamin B12 and folate level were checked which were normal . His TSH was low. The patient was then cleared for discharge from sql consultant's standpoint. Condition: The patient is discharged in stable condition. Activity: As tolerated. Medications: As per medication reconciliation list. Activity: No driving or operating heavy machinery while on narcotics. Diet: [place] diet. Followup: Follow up with primary care physician in 2-3 days. Follow up with GI, Dr. Aguirre, in 2 we eks. Return to ER for worsening condition. Physical Examination: General: Awake, alert, oriented x3, not in any acute distress. Obese male. BMI 33. CV: S1, S2. No murmurs. Respiratory: Moving air well bilaterally Gastrointestinal: Abdomen is soft, nontender, nondistended . Positive bowel sounds. Extremities: No clubbing, cyanosis, edema. Neurologic: Nonfocal. Total time spent discharging the patient was 38 minutes. /ROWENA Voice ID: [id number] Report ID: [id number]
--- NOTE | 2018-06-14 23:09 | CON ---
Date of Consultation: 06/10/2018 Reason For Consultation: Crohn's flare. History Of Present Illness: The patient is a 38-year-old, - male, who has a his tory of Crohn disease, recently relocated from [place] to [place]. 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 The patient has had recurrent Crohn's flares; for which, he takes steroids according to his new . The patient states he has had 6-7 bloody bowel movements per day over e past 2 days with severe abdominal pain, diarrhea, and nausea and vomiting yesterday. CT reveals mi ld thickening of the wall of the descending colon and beginning of mild colitis. He and his sta te this is typical of his Crohn's flares. He does not have insurance and has been unable to get [facility] medications for his Crohn disease. We will try to get patient assistance to see if we get him on some chronic medications that could help him. Past Medical History: Significant for recurrent Crohn disease with recurrent flares, treated with st eroids in hospitals in [place] over many years and now relocated to [place] and is having first flare here, treated with steroids and IV antibiotics, IV fluids as well. Past Surgical History: Partial colectomy for his Crohn disease. It appears carpal tunnel surgery an d shoulder surgery at [facility] in [place], [place]. His bowel resection was, he reports, in August 2016 in [place], [place], at [facility]. Allergies: NKDA. Social History: He is , second marriage, he states. Two biologic kids and his have some other his kids as well. Tobacco, 1 pack per day. Occasional alcohol, but not a heavy drinker. Family History: Father of myocardial infarction at the age of 42. Mother is alive and she appe ars to be full-blooded Algaaciq . Physical Examination: Vital Signs: The patient is 5 foot and 9 inches, 226 pounds. BMI of 33.4 kg/m2 with a temperature o f 97.6 degrees Fahrenheit, pulse 98, respirations 20, blood pressure 140/81, and O2 saturation 96%. HEENT: Normocephalic, atraumatic. Anicteric. Pupils equal, round, and reactive to light. Extraocu lar movements are intact. Oropharynx is clear. Neck: Supple. No masses. Respirations: Clear to auscultation bilaterally. Cardiac: Regular rate and rhythm. No gallops or rubs. Abdomen: Positive bowel sounds. Soft, nondistended. Pain generalized, some guarding, but no reboun d. Extremities: No clubbing, cyanosis, or edema, 2+ pulses. Neuro: Alert and oriented x3. Grossly nonfocal, 5/5 motor. Sensation intact to light touch. Laboratory Data: The patient's white count is 7.8, hemoglobin 14.8, hematocrit 43, MCV of 104, plate let count 189, polys of 94%, lymphocytes 6%, and monocytes 1%. The patient yesterday had a sodium of 139, potassium 4.3, chloride 107, bicarb 22, BUN of 11, creatinine of 1.0, glucose 145, calcium 8.8, and magnesium 2.2. Total bilirubin 0.6, AST 29, and ALT 34. Alkaline phosphatase 56, total protein 7.5, albumin 3.6, vitamin B12 of 589, folate of 16.9, and TSH of 0.13 which is slightly low, normal is 0.36-3.74. CT of the abdomen and pelvis equals mild thickening of the wall of the descending colo n probably indicating mild chronic colitis. Impression: 1.Crohn's flare with CT scan showing inflammation of the descending colon, consistent with mild coli tis. The patient is not on any medications. He has his flares. He is in acute in-hospital setting without any, I guess, outpatient medical followup since he has no insurance. We will try to arrange that here. 2.History of Crohn disease, bowel resection in August 2016 in [place], [place], at [facility]. Recommendations: 1.IV fluids, IV antibiotics. 2.Clear liquids, full liquid, low-residue diet as tolerated. 3.The patient is to avoid all aspirin and NSAIDs. 4.IV steroids to be used and continued, though the dosage can be reduced to approximately 40-60 mg e very day. 5.KUB in the a.m. 6.P.r.n. pain meds and antiemetics. 7.Consider IBD medications that can use chronically as an outpatient that he can afford. 8.GI clinic followup after this admission. ALEXANDRA/MODL Voice ID: [id number] Report ID: [id number]
== END 2018-06-12 13:30 | disposition home or self-care (01) | DRG 387 ==
LOC: ER 10:27 → ERHOLD 17:30 → 2ND 19:15 → OBSVTOIN 06-09 14:26
PROVIDERS: ADMIT Internal Medicine; ATTEND Family Medicine
DX: K50.119 Crohn's disease of large intestine with unspecified complications (principal); F17.210 Nicotine dependence, cigarettes, uncomplicated; Z90.49 Acquired absence of other specified parts of digestive tract; E66.9 Obesity, unspecified; Z68.33 Body mass index [BMI] 33.0-33.9, adult; D75.89 Other specified diseases of blood and blood-forming organs
CPT/HCPCS: 36415; 74018; 74177; 80048; 80053; 80076; 81003; 81015; 82150; 82274; 82607; 82746; 83690; 83735; 84443; 85025; 87045; 87046; 87177; 87209; 89055; 96361; 96365; 96366; 96375; 99285; G0378; J0744; J1100; J2270; J2405; J2765; J2920; J2930; J7030; Q9967